=== PATIENT | female | born 1935 | race Caucasian/White ===

== ENCOUNTER 2018-04-16 16:44 | Emergency (ER) | payer MEDICARE, OTHER, SELFPAY ==
[2018-04-16] VITALS (8 sets, daily range): BP systolic 146–158; BP diastolic 56–90; PULSE 79–108; RESP 16–40; TEMP 37.4; O2SAT 91–98; BMI 43.0
--- NOTE | 2018-04-16 17:05 | DI.RAD.S_ITS ---
PROCEDURE: XR CHEST 1V INDICATIONS: 82 year-old female with shortness of breath. TECHNIQUE: One view of the chest was acquired. COMPARISON: [facility], CHEST 1 VIEW, 08/04/2017, 23:11. [facility], CHEST 1 VIEW, 07/30/2017, 10:45. [facility], CHEST 2 VIEW, 03/09/2011, 9:56. FINDINGS: Surgical changes and devices: None. Lungs and pleura: No pleural effusions or pneumothorax. Lungs are clear. Mediastinum: Mediastinal contours appear normal. Heart size is normal. There is aortic atherosclerosis. Bones and chest wall: No suspicious bony lesions. 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 Overlying soft tissues appear unremarkable. IMPRESSION: No acute cardiopulmonary disease. Dictated by: Luis Antonio Bradford M.D. on 04/16/2018 at 17:24 Approved by: Luis Antonio Bradford M.D. on 04/16/2018 at 17:25
[2018-04-16] MEDS: ALBUTEROL/IPRATROPIUM 3 ML AMPUL INH (17:16)
[2018-04-16 17:28] LABS: Lactate (Lactic Acid) 1.6 mmol/L (0.7-2.1)
[2018-04-16 17:30] LABS: Creatine Kinase 29 U/L (30-135); Magnesium 2.1 mg/dL (1.6-2.3)
--- NOTE | 2018-04-16 17:38 | ED_ITS ---
HPI - SOB/Dyspnea <Kirsty Lucas DO - Last Filed: 04/24/18 04:51> General Chief Complaint: Shortness of Breath/Dyspnea Stated Complaint: SOB Time Seen by Provider: 04/16/18 17:22 Source: patient and family Mode of arrival: wheelchair Limitations: no limitations History of Present Illness Patient is an 82-year-old female who presents with increasing shortness of breath. She has been referred to what her PCP to wood model [employer] but she has not yet been seen. She has had increase in coughing and increased shortness of breath with exertion. She denies any chest pain or fever. She denies lower extremity edema. Today her breathing is worse. MD Complaint: shortness of breath Related Data Home Medications Medication Instructions Recorded Confirmed aspirin 81 mg PO QDAY #0 07/30/17 04/16/18 rivaroxaban [Xarelto] 20 mg PO QPM #0 08/04/17 04/16/18 albuterol sulfate [ProAir HFA] 2 puff INHALATION Q4H PRN 04/16/18 04/16/18 atenolol 50 mg PO DAILY 04/16/18 04/16/18 clobetasol 1 applic TOPICAL DAILY 04/16/18 04/16/18 loratadine 1 tab PO DAILY PRN 04/16/18 04/16/18 losartan 25 mg PO DAILY 04/16/18 04/16/18 mupirocin 1 applic TOPICAL DIRECTED 04/16/18 04/16/18 simvastatin 1 tab PO DAILY 04/16/18 04/16/18 Previous Rx's Medication Instructions Recorded dexamethasone [Decadron] 16 mg PO ONCE PM #4 tab 04/16/18 Allergies Allergy/AdvReac Type Severity Reaction Status Date / Time No Known Drug Allergies Allergy Verified 04/16/18 16:59 Review of Systems <DO Wiliam Garcia Last Filed: 04/24/18 04:51> Review of Systems All systems reviewed & are unremarkable except as noted in HPI and below Constitutional Denies chills, Denies fever(s), Denies lethargy and Denies weakness Cardiovascular Denies chest pain, Denies irregular heart rhythm and Reports dyspnea on exertion Respiratory Reports as per HPI, Reports system reviewed and no additional complaints, except as docu, Denies change in phlegm color, Reports cough, Denies pain with cough and Reports dyspnea on exertion Gastrointestinal Gastrointestinal: Denies abdominal pain, Denies change in bowel habits, Denies diarrhea, Denies nausea and Denies vomiting Musculoskeletal Denies back pain, Denies muscle weakness, Denies numbness and Denies tingling Integumentary/Breasts Denies pruritus, Denies erythema, Denies rash and Denies wounds Neurologic Denies numbness, Denies tingling and Denies weakness Exam <Kirsty Lucas DO - Last Filed: 04/24/18 04:51> Initial Vital Signs Initial Vital Signs: Vital Signs Temperature 99.3 F 04/16/18 16:44 Pulse Rate 92 H 04/16/18 16:44 Respiratory Rate 24 04/16/18 16:44 Blood Pressure 148/56 H 04/16/18 16:44 Pulse Oximetry 98 04/16/18 16:44 Const General: acute distress (Mild respiratory distress) Nutritional Appearance: obese Neck Neck: normal visual inspection and No JVD Chest Chest: normal inspection of the chest Resp Effort & Inspection: not able to speak in complete sentences, audible wheezes and pursed lip breathing Cardio Rhythm: regular rhythm Heart Sounds: S1 normal and S2 normal GI Inspection: non-distended Palpation: soft, no hepatosplenomegaly, No guarding, No pulsatile mass and No tender Auscultation: normal bowel sounds Skin General: no rashes or lesions noted, No jaundice and No petechiae Neuro General: alert, oriented x3, gait normal and no focal motor deficits Speech: speech normal Extrem General: full ROM, no clubbing, cyanosis or edema, no pedal edema and no calf tenderness <Charlie Munoz DO - Last Filed: 04/16/18 19:43> Initial Vital Signs Initial Vital Signs: Vital Signs Temperature 99.3 F 04/16/18 16:44 Pulse Rate 92 H 04/16/18 16:44 Respiratory Rate 24 04/16/18 16:44 Blood Pressure 148/56 H 04/16/18 16:44 Pulse Oximetry 98 04/16/18 16:44 Course <Kirsty Lucas DO - Last Filed: 04/24/18 04:51> Orders Ordered: Discontinued Medications Albuterol/Ipratropium (Duoneb) 3 ml INH NOW ONE Stop: 04/16/18 17:04 Last Admin: 04/16/18 17:16 Dose: 3 ml Dexamethasone (Decadron) 10 mg PO NOW ONE Stop: 04/16/18 19:31 Last Admin: 04/16/18 19:50 Dose: 10 mg Furosemide (Lasix) 40 mg IV NOW ONE Stop: 04/16/18 17:29 Last Admin: 04/16/18 17:41 Dose: 40 mg Vital Signs - 8 hr 04/16/18 16:44 04/16/18 17:28 04/16/18 17:30 Temperature 99.3 F Pulse Rate 92 H 104 H 104 H Respiratory Rate 24 40 H 16 Blood Pressure 148/56 H Blood Pressure [Left Arm] 146/80 H Pulse Oximetry 98 93 95 04/16/18 19:01 04/16/18 19:07 Temperature Pulse Rate 102 H 108 H Respiratory Rate 22 28 H Blood Pressure Blood Pressure [Left Arm] Pulse Oximetry 96 91 <Charlie Munoz DO - Last Filed: 04/16/18 19:43> Orders Ordered: Discontinued Medications Albuterol/Ipratropium (Duoneb) 3 ml INH NOW ONE Stop: 04/16/18 17:04 Last Admin: 04/16/18 17:16 Dose: 3 ml Dexamethasone (Decadron) 10 mg PO NOW ONE Stop: 04/16/18 19:31 Last Admin: 04/16/18 19:50 Dose: 10 mg Furosemide (Lasix) 40 mg IV NOW ONE Stop: 04/16/18 17:29 Last Admin: 04/16/18 17:41 Dose: 40 mg Vital Signs - 8 hr 04/16/18 16:44 04/16/18 17:28 04/16/18 17:30 Temperature 99.3 F Pulse Rate 92 H 104 H 104 H Respiratory Rate 24 40 H 16 Blood Pressure 148/56 H Blood Pressure [Left Arm] 146/80 H Pulse Oximetry 98 93 95 04/16/18 19:01 04/16/18 19:07 Temperature Pulse Rate 102 H 108 H Respiratory Rate 22 28 H Blood Pressure Blood Pressure [Left Arm] Pulse Oximetry 96 91 MDM - SOB/Dyspnea <Kirsty Lucas DO - Last Filed: 04/24/18 04:51> Lab Data Result diagrams: 04/16/18 17:00 04/16/18 17:35 Lab Results 04/16/18 04/16/18 04/16/18 Range/Units 17:00 17:00 17:00 WBC 10.6 (4.5-11.0) X10^3/uL RBC 4.47 (4.0-5.2) X10^6/uL Hgb 12.6 (12.0-16.0) g/dL Hct 38.2 (36-46) % MCV 85.4 (80-100) fL MCH 28.3 (26-34) PG MCHC 33.1 (30-36) % RDW 15.9 H (11.6-14.8) % Plt Count 322 (150-400) X10^3/uL Neut % (Auto) 58.5 (50-75) % Lymph % (Auto) 25.1 (25-40) % Dickinson % (Auto) 9.8 (3-14) % Eos % (Auto) 6.1 H (2-4) % Baso % (Auto) 0.5 (0-2) % Neut # (Auto) 6200 H (5338-5381) /uL Sodium (137-145) mmol/L Potassium (3.4-5.1) mmol/L Chloride (98-107) mmol/L Carbon Dioxide (22-32) mmol/L BUN (7-17) mg/dL Creatinine (0.52-1.04) mg/dL Estimated GFR (>60) mL/min BUN/Creatinine Ratio (6-22) Glucose (80-110) mg/dL Lactate (0.7-2.1) mmol/L Calcium (8.4-10.2) mg/dL Magnesium 2.1 (1.6-2.3) mg/dL Total Bilirubin (0.2-1.3) mg/dL AST (14-36) IU/L ALT (9-52) IU/L Alkaline Phosphatase (38-126) U/L Total Creatine Kinase 29 L (30-135) U/L Troponin I < 0.012 (0.01-0.034) ng/mL B-Natriuretic Peptide 254.0 H (<29.3) Total Protein (6.3-8.2) g/dL Albumin (3.5-5.0) g/dL Globulin (1.7-4.1) g/dL Albumin/Globulin Ratio (1.0-2.8) Procalcitonin < 0.05 (<0.5) ng/mL A. baumannii (PCR) (Not Detect) Cherry albicans (PCR) (Not Detect) C. glabrata (PCR) (Not Detect) C. krusei (PCR) (Not Detect) C. parapsilosis (PCR) (Not Detect) C. tropicalis (PCR) (Not Detect) Enterobacteriac sp PCR (Not Detect) E. cloacae complex PCR (Not Detect) Enterococcus sp PCR (Not Detect) E. coli (PCR) (Not Detect) H. influenzae (PCR) (Not Detect) Klebsiella oxytoca PCR (Not Detect) Klebsiella pneumoniae (Not Detect) List. monocytogenes PCR (Not Detect) N. meningitidis (PCR) (Not Detect) Proteus species (PCR) (Not Detect) Serratia marcescens PCR (Not Detect) Staphylococcus sp PCR (Not Detect) Staph aureus (PCR) (Not Detect) mecA-Methicil Res Gene (Not Detect) Streptococcus sp PCR (Not Detect) Group A Strep (PCR) (Not Detect) Strep agalactiae (PCR) (Not Detect) Strep pneumoniae (PCR) (Not Detect) P. aeruginosa (PCR) (Not Detect) Elva/B-Vanco Res Genes (Not Detect) KPC-Carbap Res Gene PCR (Not Detect) 04/16/18 04/16/18 04/17/18 Range/Units 17:00 17:35 Unknown WBC (4.5-11.0) X10^3/uL RBC (4.0-5.2) X10^6/uL Hgb (12.0-16.0) g/dL Hct (36-46) % MCV (80-100) fL MCH (26-34) PG MCHC (30-36) % RDW (11.6-14.8) % Plt Count (150-400) X10^3/uL Neut % (Auto) (50-75) % Lymph % (Auto) (25-40) % Dickinson % (Auto) (3-14) % Eos % (Auto) (2-4) % Baso % (Auto) (0-2) % Neut # (Auto) (4276-4210) /uL Sodium 138 (137-145) mmol/L Potassium 4.7 (3.4-5.1) mmol/L Chloride 97 L (98-107) mmol/L Carbon Dioxide 30 (22-32) mmol/L BUN 15 (7-17) mg/dL Creatinine 0.80 (0.52-1.04) mg/dL Estimated GFR > 60.0 (>60) mL/min BUN/Creatinine Ratio 18.8 (6-22) Glucose 116 H (80-110) mg/dL Lactate 1.6 (0.7-2.1) mmol/L Calcium 9.8 (8.4-10.2) mg/dL Magnesium (1.6-2.3) mg/dL Total Bilirubin 0.5 (0.2-1.3) mg/dL AST 35 (14-36) IU/L ALT 26 (9-52) IU/L Alkaline Phosphatase 130 H (38-126) U/L Total Creatine Kinase (30-135) U/L Troponin I (0.01-0.034) ng/mL B-Natriuretic Peptide (<29.3) Total Protein 8.0 (6.3-8.2) g/dL Albumin 4.2 (3.5-5.0) g/dL Globulin 3.8 (1.7-4.1) g/dL Albumin/Globulin Ratio 1.1 (1.0-2.8) Procalcitonin (<0.5) ng/mL A. baumannii (PCR) Not detected (Not Detect) Cherry albicans (PCR) Not detected (Not Detect) C. glabrata (PCR) Not detected (Not Detect) C. krusei (PCR) Not detected (Not Detect) C. parapsilosis (PCR) Not detected (Not Detect) C. tropicalis (PCR) Not detected (Not Detect) Enterobacteriac sp PCR Not detected (Not Detect) E. cloacae complex PCR Not detected (Not Detect) Enterococcus sp PCR Not detected (Not Detect) E. coli (PCR) Not detected (Not Detect) H. influenzae (PCR) Not detected (Not Detect) Klebsiella oxytoca PCR Not detected (Not Detect) Klebsiella pneumoniae Not detected (Not Detect) List. monocytogenes PCR Not detected (Not Detect) N. meningitidis (PCR) Not detected (Not Detect) Proteus species (PCR) Not detected (Not Detect) Serratia marcescens PCR Not detected (Not Detect) Staphylococcus sp PCR Detected H (Not Detect) Staph aureus (PCR) Not detected (Not Detect) mecA-Methicil Res Gene Detected H (Not Detect) Streptococcus sp PCR Not detected (Not Detect) Group A Strep (PCR) Not detected (Not Detect) Strep agalactiae (PCR) Not detected (Not Detect) Strep pneumoniae (PCR) Not detected (Not Detect) P. aeruginosa (PCR) Not detected (Not Detect) Elva/B-Vanco Res Genes Not detected (Not Detect) KPC-Carbap Res Gene PCR Not detected (Not Detect) ECG Data Attestation: I personally reviewed and interpreted this ECG as follows: Prior ECG tracings: available for review Interpretation: Sinus rhythm rate 95, better than previous EKG no acute ST changes <Charlie Munoz DO - Last Filed: 04/16/18 19:43> Lab Data Lab Results 04/16/18 04/16/18 04/16/18 Range/Units 17:00 17:00 17:00 WBC 10.6 (4.5-11.0) X10^3/uL RBC 4.47 (4.0-5.2) X10^6/uL Hgb 12.6 (12.0-16.0) g/dL Hct 38.2 (36-46) % MCV 85.4 (80-100) fL MCH 28.3 (26-34) PG MCHC 33.1 (30-36) % RDW 15.9 H (11.6-14.8) % Plt Count 322 (150-400) X10^3/uL Neut % (Auto) 58.5 (50-75) % Lymph % (Auto) 25.1 (25-40) % Dickinson % (Auto) 9.8 (3-14) % Eos % (Auto) 6.1 H (2-4) % Baso % (Auto) 0.5 (0-2) % Neut # (Auto) 6200 H (4210-9166) /uL Sodium (137-145) mmol/L Potassium (3.4-5.1) mmol/L Chloride (98-107) mmol/L Carbon Dioxide (22-32) mmol/L BUN (7-17) mg/dL Creatinine (0.52-1.04) mg/dL Estimated GFR (>60) mL/min BUN/Creatinine Ratio (6-22) Glucose (80-110) mg/dL Lactate (0.7-2.1) mmol/L Calcium (8.4-10.2) mg/dL Magnesium 2.1 (1.6-2.3) mg/dL Total Bilirubin (0.2-1.3) mg/dL AST (14-36) IU/L ALT (9-52) IU/L Alkaline Phosphatase (38-126) U/L Total Creatine Kinase 29 L (30-135) U/L Troponin I < 0.012 (0.01-0.034) ng/mL B-Natriuretic Peptide 254.0 H (<29.3) Total Protein (6.3-8.2) g/dL Albumin (3.5-5.0) g/dL Globulin (1.7-4.1) g/dL Albumin/Globulin Ratio (1.0-2.8) Procalcitonin < 0.05 (<0.5) ng/mL A. baumannii (PCR) (Not Detect) Cherry albicans (PCR) (Not Detect) C. glabrata (PCR) (Not Detect) C. krusei (PCR) (Not Detect) C. parapsilosis (PCR) (Not Detect) C. tropicalis (PCR) (Not Detect) Enterobacteriac sp PCR (Not Detect) E. cloacae complex PCR (Not Detect) Enterococcus sp PCR (Not Detect) E. coli (PCR) (Not Detect) H. influenzae (PCR) (Not Detect) Klebsiella oxytoca PCR (Not Detect) Klebsiella pneumoniae (Not Detect) List. monocytogenes PCR (Not Detect) N. meningitidis (PCR) (Not Detect) Proteus species (PCR) (Not Detect) Serratia marcescens PCR (Not Detect) Staphylococcus sp PCR (Not Detect) Staph aureus (PCR) (Not Detect) mecA-Methicil Res Gene (Not Detect) Streptococcus sp PCR (Not Detect) Group A Strep (PCR) (Not Detect) Strep agalactiae (PCR) (Not Detect) Strep pneumoniae (PCR) (Not Detect) P. aeruginosa (PCR) (Not Detect) Elva/B-Vanco Res Genes (Not Detect) KPC-Carbap Res Gene PCR (Not Detect) 04/16/18 04/16/18 04/17/18 Range/Units 17:00 17:35 Unknown WBC (4.5-11.0) X10^3/uL RBC (4.0-5.2) X10^6/uL Hgb (12.0-16.0) g/dL Hct (36-46) % MCV (80-100) fL MCH (26-34) PG MCHC (30-36) % RDW (11.6-14.8) % Plt Count (150-400) X10^3/uL Neut % (Auto) (50-75) % Lymph % (Auto) (25-40) % Dickinson % (Auto) (3-14) % Eos % (Auto) (2-4) % Baso % (Auto) (0-2) % Neut # (Auto) (8983-3267) /uL Sodium 138 (137-145) mmol/L Potassium 4.7 (3.4-5.1) mmol/L Chloride 97 L (98-107) mmol/L Carbon Dioxide 30 (22-32) mmol/L BUN 15 (7-17) mg/dL Creatinine 0.80 (0.52-1.04) mg/dL Estimated GFR > 60.0 (>60) mL/min BUN/Creatinine Ratio 18.8 (6-22) Glucose 116 H (80-110) mg/dL Lactate 1.6 (0.7-2.1) mmol/L Calcium 9.8 (8.4-10.2) mg/dL Magnesium (1.6-2.3) mg/dL Total Bilirubin 0.5 (0.2-1.3) mg/dL AST 35 (14-36) IU/L ALT 26 (9-52) IU/L Alkaline Phosphatase 130 H (38-126) U/L Total Creatine Kinase (30-135) U/L Troponin I (0.01-0.034) ng/mL B-Natriuretic Peptide (<29.3) Total Protein 8.0 (6.3-8.2) g/dL Albumin 4.2 (3.5-5.0) g/dL Globulin 3.8 (1.7-4.1) g/dL Albumin/Globulin Ratio 1.1 (1.0-2.8) Procalcitonin (<0.5) ng/mL A. baumannii (PCR) Not detected (Not Detect) Cherry albicans (PCR) Not detected (Not Detect) C. glabrata (PCR) Not detected (Not Detect) C. krusei (PCR) Not detected (Not Detect) C. parapsilosis (PCR) Not detected (Not Detect) C. tropicalis (PCR) Not detected (Not Detect) Enterobacteriac sp PCR Not detected (Not Detect) E. cloacae complex PCR Not detected (Not Detect) Enterococcus sp PCR Not detected (Not Detect) E. coli (PCR) Not detected (Not Detect) H. influenzae (PCR) Not detected (Not Detect) Klebsiella oxytoca PCR Not detected (Not Detect) Klebsiella pneumoniae Not detected (Not Detect) List. monocytogenes PCR Not detected (Not Detect) N. meningitidis (PCR) Not detected (Not Detect) Proteus species (PCR) Not detected (Not Detect) Serratia marcescens PCR Not detected (Not Detect) Staphylococcus sp PCR Detected H (Not Detect) Staph aureus (PCR) Not detected (Not Detect) mecA-Methicil Res Gene Detected H (Not Detect) Streptococcus sp PCR Not detected (Not Detect) Group A Strep (PCR) Not detected (Not Detect) Strep agalactiae (PCR) Not detected (Not Detect) Strep pneumoniae (PCR) Not detected (Not Detect) P. aeruginosa (PCR) Not detected (Not Detect) Elva/B-Vanco Res Genes Not detected (Not Detect) KPC-Carbap Res Gene PCR Not detected (Not Detect) Imaging Data CT scan - chest: Radiologist's impression: PROCEDURE: CT ANGIO CHEST PE PROTOCOL INDICATIONS: 82 year-old female with hypoxia and shortness of breath. TECHNIQUE: After the administration of intravenous contrast, 2 mm thick sections acquired from the pulmonary apices to the posterior costophrenic angles. 3-dimensional maximum intensity projection (MIP) coronal and sagittal reformats were then acquired through the thorax. For radiation dose reduction, the following was used: automated exposure control, adjustment of mA and/or kV according to patient size. COMPARISON: [facility], CT, CHEST ABDOMEN PELVIS WITH CONTRAST, 03/16/2011 , 10:36. FINDINGS: Image quality: Excellent. Pulmonary arteries: Pulmonary arteries are normal in size, and demonstrate no intraluminal filling defects to suggest central pulmonary embolism. Lungs and pleura: No acute airspace opacities. On axial image 18, 10 x 7 mm right upper lobe nodule appears new since 2010. No pleural effusions or pneumothorax. Central and peripheral airways are patent. Mediastinum: Heart size is normal, without pericardial effusion. On axial image 57, 2.6 x 2.3 cm right hilar soft tissue density appears new since 2010. No mediastinal adenopathy by size criteria. Thoracic aorta is normal in caliber and enhancement. Esophagus is normal in caliber, without hiatal hernia. Bones and chest wall: No suspicious bony lesions. 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 Ribs and thoracic spine appear intact throughout. Thyroid gland is normal in size. No axillary or supraclavicular adenopathy. Abdomen: Visualized upper abdominal solid organs appear normal in the early arterial phase of enhancement. 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 Incompletely visualized anterior right renal cortical simple cyst measures at least 5.1 cm. 2.9 cm lateral left renal cortical simple cyst is also present. IMPRESSION: 1. No evidence for central pulmonary embolism. 2. 2.6 x 2.3 cm right hilar lesion appears new since 2010, and may represent pathologically enlarged lymph node versus medial right lung neoplasm contiguous with the mediastinum. An additional newly apparent 10 x 7 mm indeterminate right upper lobe nodule is also present. Consider further evaluation of these findings with PET/CT scan. 3. 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 4. Several bilateral renal cortical simple cysts again noted. Dictated by: Luis Antonio Bradford M.D. on 04/16/2018 at 18:43 Approved by: Luis Antonio Bradford M.D. on 04/16/2018 at 18:55 Chest x-ray: Radiologist's impression: no acute findings ECG Data Attestation: I personally reviewed and interpreted this ECG as follows: Prior ECG tracings: not available for review Interpretation: Sinus rhythm Rate 95 First degree AV block Normal axis Nonspecific ST T wave changes MDM Narrative Medical decision making narrative: 1800: Dr Munoz received turned over from day provider. Reviewed patient's history and physical exam. Read patient's labs. Perform my own history and physical. Chest x-ray is unremarkable. CT scan shows no sign of blood clot. Does show uday hilar findings of right upper lobe findings. I did discuss this with the patient. She was given a report to take to her primary doctor for follow-up. She does have an albuterol inhaler at home. She ambulated around the emergency department and desatted to the low 90s when she was at her most symptomatic however recovered quickly off oxygen back on the [place]. We did discuss her symptoms. She does have a consult by her primary doctor to follow up with pulmonology. We discussed the use of antihistamines such as Claritin which she will start. She was given a dose of Decadron here in the emergency department and will take another dose in 36 hr. She has an albuterol inhaler at home with an AeroChamber. She will take this medication every 4 hr for the next 24-48 hours. She was given return precautions. No indication for antibiotics found on today's exam. Patient clinically not in heart failure. Was satting in the high 90s on room air while lying in bed. Was asymptomatic while lying in bed. Was not having any chest pain. EKG does not show ST elevations. I discussed all this with the patient and her at bedside. They will call her primary doctor tomorrow for follow-up with the CTA findings they will call the wood model builder tomorrow to schedule a appointment. They expressed understanding and agreement with plan Discharge Plan Departure Patient Disposition: Home, Self-Care Clinical Impression: Shortness of breath, Pulmonary nodule Discharge Date/Time: 04/16/18 20:03 Interventions: ED Discharge Assessment Last Done: 04/16/18 20:02 Instructions: DI for Shortness of Breath, DI for Pulmonary Nodule, How to Manage Shortness of Breath Activity Restrictions/Additional Instructions: Recommend that you contact your primary care provider to discuss the pulmonary nodule that was seen the CT of your chest today. Call the lung doctor tomorrow morning to schedule a follow up. take all of your medications like we discussed and as directed. return to the ER for any new or worsening symptoms Prescriptions: New dexamethasone [Decadron] 4 mg tablet 16 mg PO ONCE PM Qty: 4 RF: 0 No Action aspirin 81 MG tablet,delayed release (DR/EC) 81 mg PO QDAY Qty: 0 RF: 0 rivaroxaban [Xarelto] 20 MG tablet 20 mg PO QPM Qty: 0 RF: 0 simvastatin 20 mg tablet 1 tab PO DAILY RF: 0 losartan 25 mg tablet 25 mg PO DAILY RF: 0 mupirocin 2 % ointment 1 applic Topical DIRECTED RF: 0 albuterol sulfate [ProAir HFA] 90 mcg/actuation HFA aerosol inhaler 2 puff Inhalation Q4H PRN (Reason: Wheezing) RF: 0 clobetasol 0.05 % solution 1 applic Topical DAILY RF: 0 atenolol 50 mg tablet 50 mg PO DAILY RF: 0 loratadine 10 mg tablet 1 tab PO DAILY PRN (Reason: Allergy Symptoms) RF: 0 ED Cosign/Signout <Kirsty Lucas DO - Last Filed: 04/24/18 04:51> Sign Out Provider Sign Out Attestation: Signed out to Dr. Munoz. CT for PE pending has not yet been done, check labs may require admission.
[2018-04-16] MEDS: FUROSEMIDE 40 MG/4 ML VIAL IV (17:41)
--- NOTE | 2018-04-16 17:41 | DI.CT.S_ITS ---
PROCEDURE: CT ANGIO CHEST PE PROTOCOL INDICATIONS: 82 year-old female with hypoxia and shortness of breath. TECHNIQUE: After the administration of intravenous contrast, 2 mm thick sections acquired from the pulmonary apices to the posterior costophrenic angles. 3-dimensional maximum intensity projection (MIP) coronal and sagittal reformats were then acquired through the thorax. For radiation dose reduction, the following was used: automated exposure control, adjustment of mA and/or kV according to patient size. COMPARISON: [facility], CT, CHEST ABDOMEN PELVIS WITH CONTRAST, 03/16/2011, 10:36. FINDINGS: Image quality: Excellent. Pulmonary arteries: Pulmonary arteries are normal in size, and demonstrate no intraluminal filling defects to suggest central pulmonary embolism. Lungs and pleura: No acute airspace opacities. On axial image 18, 10 x 7 mm right upper lobe nodule appears new since 2010. No pleural effusions or pneumothorax. Central and peripheral airways are patent. Mediastinum: Heart size is normal, without pericardial effusion. On axial image 57, 2.6 x 2.3 cm right hilar soft tissue density appears new since 2010. No mediastinal adenopathy by size criteria. Thoracic aorta is normal in caliber and enhancement. Esophagus is normal in caliber, without hiatal hernia. Bones and chest wall: No suspicious bony lesions. 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 Ribs and thoracic spine appear intact throughout. Thyroid gland is normal in size. No axillary or supraclavicular adenopathy. Abdomen: Visualized upper abdominal solid organs appear normal in the early arterial phase of enhancement. There is widespread aortic atherosclerosis, along with 50-60% eccentric luminal stenoses of both the celiac trunk and superior mesenteric artery origins. Incompletely visualized anterior right renal cortical simple cyst measures at least 5.1 cm. 2.9 cm lateral left renal cortical simple cyst is also present. IMPRESSION: 1. No evidence for central pulmonary embolism. 2. 2.6 x 2.3 cm right hilar lesion appears new since 2010, and may represent pathologically enlarged lymph node versus medial right lung neoplasm contiguous with the mediastinum. An additional newly apparent 10 x 7 mm indeterminate right upper lobe nodule is also present. Consider further evaluation of these findings with PET/CT scan. 3. 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 4. Several bilateral renal cortical simple cysts again noted. Dictated by: Luis Antonio Bradford M.D. on 04/16/2018 at 18:43 Approved by: Luis Antonio Bradford M.D. on 04/16/2018 at 18:55
--- NOTE | 2018-04-16 17:42 | PC.NURSE ---
Pt repositioned in bed. Sitting up as high in bed as possible, audible wheeze heard. Pt's received breathing tx and reports feeling minimally better post. Lasix infusing over 10 min. speaking in full sentences. maintaining O2 sat of 99% RA. Encouraged to use call clifford for BR.
[2018-04-16 17:43] LABS: Troponin I < 0.012 ng/mL (0.01-0.034)
[2018-04-16 17:54] LABS: Alanine Aminotransferase 26 IU/L (9-52); Albumin 4.2 g/dL (3.5-5.0); Albumin Globulin Ratio 1.1 (1.0-2.8); Alkaline Phosphatase 130 U/L (38-126); Aspartate Aminotransferase 35 IU/L (14-36); BUN Creatinine Ratio 18.8 (6-22); Bilirubin Total 0.5 mg/dL (0.2-1.3); Blood Urea Nitrogen 15 mg/dL (7-17); Calcium 9.8 mg/dL (8.4-10.2); Carbon Dioxide 30 mmol/L (22-32); Chloride 97 mmol/L (98-107); Estimated Glomerular Filt Rate > 60.0 mL/min (>60); Globulin 3.8 g/dL (1.7-4.1); Glucose 116 mg/dL (80-110); HEMOLYSIS 38 (0-50); Potassium 4.7 mmol/L (3.4-5.1); Sodium 138 mmol/L (137-145)
[2018-04-16 18:02] LABS: Add Manual Diff / Slide Review NO; Basophils Percent Auto 0.5 % (0-2); Eosinophils Percent Auto 6.1 % (2-4); Hematocrit 38.2 % (36-46); Hemoglobin 12.6 g/dL (12.0-16.0); Lymphocytes Percent Auto 25.1 % (25-40); Mean Corpuscular HGB Conc 33.1 % (30-36); Mean Corpuscular Hemoglobin 28.3 PG (26-34); Mean Corpuscular Volume 85.4 fL (80-100); Monocytes Percent Auto 9.8 % (3-14); Neutrophils Absolute Auto 6200 /uL (3000-5900); Neutrophils Percent Auto 58.5 % (50-75); Platelet Count 322 X10^3/uL (150-400); Red Blood Cell Count 4.47 X10^6/uL (4.0-5.2); Red Cell Distribution Width 15.9 % (11.6-14.8); White Blood Cell Count 10.6 X10^3/uL (4.5-11.0)
[2018-04-16 18:29] LABS: Procalcitonin < 0.05 ng/mL (<0.5)
[2018-04-16] MEDS: DEXAMETHASONE 10 MG/ML VIAL PO (19:50)
[2018-04-17 13:05] LABS: Vancomycin-rest genes A/B Not Detected (Not Detect)
[2018-04-17 13:06] LABS: Acinetobacter baumannii Not Detected (Not Detect); Candida albicans Not Detected (Not Detect); Candida glabrata Not Detected (Not Detect); Candida krusei Not Detected (Not Detect); Candida parapsilosis Not Detected (Not Detect); Candida tropicalis Not Detected (Not Detect); E. coli Not Detected (Not Detect); Enterobacter cloacae complex Not Detected (Not Detect); Enterobacteriaceae species Not Detected (Not Detect); Enterococcus species Not Detected (Not Detect); Haemophilus influenzae Not Detected (Not Detect); KPC (carbapenem-resist gene) Not Detected (Not Detect); Listeria monocytogenes Not Detected (Not Detect); Methicillin-resistant gene Detected (Not Detect); Neisseria meningitidis Not Detected (Not Detect); Proteus species Not Detected (Not Detect); Pseudomonas aeruginosa Not Detected (Not Detect); Serratia marcescens Not Detected (Not Detect); Staphylococcus species Detected (Not Detect); Streptococcus agalactiae (Gr B Not Detected (Not Detect); Streptococcus pneumonia Not Detected (Not Detect); Streptococcus pyogenes (Gr A) Not Detected (Not Detect); Streptococcus species Not Detected (Not Detect)
--- NOTE | 2018-04-17 14:40 | PC.NURSE ---
result given to dr burt, no new order at this time.
== END 2018-04-16 20:03 | disposition home or self-care (01) ==
PROVIDERS: Emergency Medicine; Emergency Provider Emergency Medicine; PCP Internal Medicine
DX: R06.02 Shortness of breath (principal); R91.1 Solitary pulmonary nodule
CPT/HCPCS: 36415; 36591; 71045; 71275; 80053; 82550; 82553; 83605; 83735; 83880; 84145; 84484; 85025; 87040; 87077; 87150; 87186; 87205; 93005; 93041; 94640; 96374; 99284; 99285; J1100; J1940; Q9967

== ENCOUNTER 2018-12-28 17:57 | Inpatient (IN) | payer MEDICARE, OTHER, SELFPAY ==
[2018-07-01 15:48] VITALS: BMI 41.5
[2018-12-28] VITALS (7 sets, daily range): BP systolic 133–187; BP diastolic 52–67; PULSE 67–86; RESP 20–29; TEMP 36.3; O2SAT 98–100
--- NOTE | 2018-12-28 18:21 | DI.RAD.S_ITS ---
PROCEDURE: XR CHEST 1V INDICATIONS: SOb TECHNIQUE: One view of the chest was acquired. COMPARISON: [facility], CR, XR CHEST 1V, 04/16/2018, 17:10. FINDINGS: Surgical changes and devices: None. Lungs and pleura: No acute consolidation. Scattered subsegmental atelectasis and/or scarring. No pleural effusions or pneumothorax. Mediastinum: Mediastinal contours appear normal. Heart size is normal. Bones and chest wall: No suspicious bony lesions. Overlying soft tissues appear unremarkable. Bilateral shoulder joint degeneration. IMPRESSION: No acute disease. Dictated by: Saurabh Tavera M.D. on 12/28/2018 at 19:08 Approved by: Saurabh Tavera M.D. on 12/28/2018 at 19:08
--- NOTE | 2018-12-28 18:28 | ED.SOB ---
HPI - SOB/Dyspnea General Chief Complaint: Shortness of Breath/Dyspnea Stated Complaint: states hard time breathing Time Seen by Provider: 12/28/18 18:07 Source: patient and family Mode of arrival: ambulatory Limitations: no limitations History of Present Illness Patient is an 83-year-old female here for evaluation of progressively worsening shortness of breath on exertion over the past several days. She states she has never been diagnosed with congestive heart failure. She states that she has been evaluated for COPD has been told that she does not have COPD however she is still on Advair. She also takes Lasix. She has been taking her medications. She states that over the past couple days it has become more and more difficult for her to get around her house. She states she cannot go more than 3 or 4 steps without becoming very short of breath and having to stop. She also notices swelling in her lower extremities. Does not know if she has been gaining weight over the past couple days. Denies any chest pain. Related Data Home Medications Medication Instructions Recorded Confirmed albuterol sulfate [ProAir HFA] 2 puff INHALATION Q4H PRN 04/16/18 12/28/18 atenolol 50 mg PO DAILY 04/16/18 12/28/18 loratadine 1 tab PO DAILY PRN 04/16/18 12/28/18 losartan 25 mg PO DAILY 04/16/18 12/28/18 mupirocin 1 applic TOPICAL DIRECTED PRN 04/16/18 12/28/18 simvastatin 1 tab PO DAILY 04/16/18 12/28/18 albuterol sulfate 0.63 mg INHALATION Q4H PRN 12/28/18 12/28/18 fluticasone-salmeterol [Advair 1 inh INHALATION BID 12/28/18 12/28/18 Diskus] furosemide 20 mg PO DAILY 12/28/18 12/28/18 potassium chloride 10 meq PO DAILY 12/28/18 12/28/18 Allergies Allergy/AdvReac Type Severity Reaction Status Date / Time No Known Drug Allergies Allergy Verified 04/16/18 16:59 Review of Systems Constitutional Denies fever(s) and Denies headache(s) Eyes Denies blurry vision and Denies diplopia ENT Ears, Nose, Mouth, and Throat: Denies vertigo and Denies headache(s) Cardiovascular Denies chest pain, Denies syncope, Reports pedal edema, Reports edema, Denies radiating jaw, neck or arm pain, Denies palpitations, Reports dyspnea, Reports dyspnea on exertion and Reports orthopnea Respiratory Denies cough, Reports dyspnea, Reports dyspnea on exertion and Denies wheezing Gastrointestinal Gastrointestinal: Denies abdominal pain, Denies nausea and Denies vomiting Genitourinary Denies dysuria Musculoskeletal Denies myalgias and Denies arthralgias Integumentary/Breasts Denies rash Neurologic Denies vertigo, Denies syncope and Denies headache(s) Endocrine Denies palpitations Hematologic/Lymphatic Comments: On Xarelto Allergic/Immunologic Denies urticaria and Denies wheezing [facility] Social History Smoking Status: Never smoker Social History Smoking Status: Never smoker Exam Initial Vital Signs Initial Vital Signs: Vital Signs Temperature 97.4 F L 12/28/18 18:08 Pulse Rate 67 12/28/18 18:08 Respiratory Rate 20 12/28/18 18:08 Blood Pressure 154/67 H 12/28/18 18:08 Pulse Oximetry 99 12/28/18 18:08 Const General: cooperative, well developed, well groomed and in distress [facility] Head: normal to inspection and normocephalic Chest Chest: normal inspection of the chest Resp Effort & Inspection: labored, pursed lip breathing and tachypneic Auscultation: rhonchi Cardio Rate: regular rate Rhythm: abnormal rhythm irregularly irregular Pulses: radial pulses present GI Inspection: non-distended Palpation: soft, No firm and No tender Skin Lesions: no lesions Rashes: no rashes Neuro General: alert, awake and oriented x3 Cognition: normal cognition Speech: speech normal Gait: normal gait Motor: muscle tone normal throughout Extrem General: normal to inspection and capillary refill normal Psych Appearance: grossly normal and well kempt Course Orders Ordered: ED Orders 12/28/18 18:21 XR chest 1V Stat EKG-12 Lead Stat 12/28/18 19:00 B Type Natriuretic Peptide Stat Complete Blood Count AUTO DIFF Stat Comprehensive Metabolic Panel Stat Partial Thromboplastin Time Stat Prothrombin Time INR Stat Troponin I Stat Type and Screen Stat 12/28/18 20:45 CT angio chest PE protocol Stat 12/28/18 22:54 EKG-12 Lead Stat 12/28/18 23:27 Troponin I Stat Sodium Chloride (Normal Saline 0.9%) 1,000 mls @ 125 mls/hr IV CONT ANGELES Last Admin: 12/28/18 22:43 Dose: 125 mls/hr Discontinued Medications Albuterol/Ipratropium (Duoneb) 3 ml INH NOW ONE Stop: 12/28/18 22:55 Last Admin: 12/28/18 23:02 Dose: 3 ml Albuterol/Ipratropium (Duoneb) 3 ml INH NOW ONE Stop: 12/28/18 23:02 Last Admin: 12/28/18 23:04 Dose: 3 ml Furosemide (Lasix) 40 mg IV NOW ONE Stop: 12/28/18 20:44 Last Admin: 12/28/18 22:21 Dose: Not Given Furosemide (Lasix) 40 mg IV NOW ONE Stop: 12/28/18 22:19 Last Admin: 12/28/18 22:20 Dose: 40 mg Methylprednisolone (Solu-Medrol 125 Mg Vial) 125 mg IV NOW ONE Stop: 12/28/18 23:01 Last Admin: 12/28/18 23:03 Dose: 125 mg Nitroglycerin (Nitro-Bid) 1 inch TOP NOW ONE Stop: 12/28/18 22:55 Last Admin: 12/28/18 23:02 Dose: 1 inch Vital Signs - 8 hr 12/28/18 18:08 12/28/18 18:46 12/28/18 22:44 Temperature 97.4 F L Pulse Rate 67 84 83 Respiratory Rate 20 22 29 H Blood Pressure 154/67 H Blood Pressure [Right upper arm] 147/63 H 173/52 H Pulse Oximetry 99 98 100 12/28/18 23:00 12/28/18 23:02 12/28/18 23:04 Temperature Pulse Rate 82 84 86 Respiratory Rate 26 H 22 Blood Pressure 187/67 H Blood Pressure [Right upper arm] 157/52 H Pulse Oximetry 100 99 12/29/18 00:01 Temperature Pulse Rate 77 Respiratory Rate 22 Blood Pressure Blood Pressure [Right upper arm] 160/53 H Pulse Oximetry 100 MDM - SOB/Dyspnea Lab Data Attestation: I reviewed the patient's lab results. Result diagrams: 12/28/18 19:00 12/28/18 19:00 Lab Results 12/28/18 12/28/18 12/28/18 Range/Units 19:00 19:00 19:00 WBC 8.7 (4.5-11.0) X10^3/uL RBC 4.17 (4.0-5.2) X10^6/uL Hgb 9.2 L (12.0-16.0) g/dL Hct 29.8 L (36-46) % MCV 71.6 L (80-100) fL MCH 22.0 L (26-34) PG MCHC 30.7 (30-36) % RDW 18.7 H (11.6-14.8) % Plt Count 332 (150-400) X10^3/uL Neut % (Auto) 69.2 (50-75) % Lymph % (Auto) 17.6 L (25-40) % [place] % (Auto) 9.3 (3-14) % Eos % (Auto) 3.5 (2-4) % Baso % (Auto) 0.4 (0-2) % Neut # (Auto) 6000 (9322-1767) /uL Lymph # (Auto) 1500 (3441-1426) /uL [place] # (Auto) 800 (0-900) /uL Eos # (Auto) 300 (0-450) /uL Baso # (Auto) 0 (0-100) /uL PT 12.5 (10.1-12.7) SECONDS INR 1.1 (0.9-1.3) APTT 30 (26.4-36.2) SECONDS Sodium 139 (137-145) mmol/L Potassium 4.7 (3.4-5.1) mmol/L Chloride 100 (98-107) mmol/L Carbon Dioxide 30 (22-32) mmol/L BUN 19 H (7-17) mg/dL Creatinine 0.90 (0.52-1.04) mg/dL Estimated GFR 59.9 L (>60) mL/min BUN/Creatinine Ratio 21.1 (6-22) Glucose 111 H (80-110) mg/dL Calcium 9.4 (8.4-10.2) mg/dL Total Bilirubin 0.4 (0.2-1.3) mg/dL AST 32 (14-36) IU/L ALT 24 (9-52) IU/L Alkaline Phosphatase 137 H (38-126) U/L Troponin I (0.01-0.034) ng/mL B-Natriuretic Peptide 447 H (<100) Total Protein 8.2 (6.3-8.2) g/dL Albumin 4.1 (3.5-5.0) g/dL Globulin 4.1 (1.7-4.1) g/dL Albumin/Globulin Ratio 1.0 (1.0-2.8) Blood Type 12/28/18 12/28/18 12/28/18 Range/Units 19:00 19:00 23:27 WBC (4.5-11.0) X10^3/uL RBC (4.0-5.2) X10^6/uL Hgb (12.0-16.0) g/dL Hct (36-46) % MCV (80-100) fL MCH (26-34) PG MCHC (30-36) % RDW (11.6-14.8) % Plt Count (150-400) X10^3/uL Neut % (Auto) (50-75) % Lymph % (Auto) (25-40) % [place] % (Auto) (3-14) % Eos % (Auto) (2-4) % Baso % (Auto) (0-2) % Neut # (Auto) (3271-5799) /uL Lymph # (Auto) (2559-3820) /uL [place] # (Auto) (0-900) /uL Eos # (Auto) (0-450) /uL Baso # (Auto) (0-100) /uL PT (10.1-12.7) SECONDS INR (0.9-1.3) APTT (26.4-36.2) SECONDS Sodium (137-145) mmol/L Potassium (3.4-5.1) mmol/L Chloride (98-107) mmol/L Carbon Dioxide (22-32) mmol/L BUN (7-17) mg/dL Creatinine (0.52-1.04) mg/dL Estimated GFR (>60) mL/min BUN/Creatinine Ratio (6-22) Glucose (80-110) mg/dL Calcium (8.4-10.2) mg/dL Total Bilirubin (0.2-1.3) mg/dL AST (14-36) IU/L ALT (9-52) IU/L Alkaline Phosphatase (38-126) U/L Troponin I < 0.012 < 0.012 (0.01-0.034) ng/mL B-Natriuretic Peptide (<100) Total Protein (6.3-8.2) g/dL Albumin (3.5-5.0) g/dL Globulin (1.7-4.1) g/dL Albumin/Globulin Ratio (1.0-2.8) Blood Type O Negative Imaging Data Chest x-ray: Radiologist's impression: [address] [address] XRay Report Signed Patient: Lizy Cottrell#: [id number] : 6Acct:[id number] Age/Sex: 83 / FDate of Service: 12/28/18 Loc: ED Accession Number: [id number] Procedure: XR chest 1V Ordering Provider: Charlie Munoz D.O. PROCEDURE: XR CHEST 1V INDICATIONS: SOb TECHNIQUE: One view of the chest was acquired. COMPARISON: [facility], , XR CHEST 1V, 04/16/2018, 17:10. FINDINGS: Surgical changes and devices: None. Lungs and pleura: No acute consolidation. Scattered subsegmental atelectasis and/or scarring. No pleural effusions or pneumothorax. Mediastinum: Mediastinal contours appear normal. Heart size is normal. Bones and chest wall: No suspicious bony lesions. Overlying soft tissues appear unremarkable. Bilateral shoulder joint degeneration. IMPRESSION: No acute disease. Dictated by: Saurabh Tavera M.D. on 12/28/2018 at 19:08 Approved by: Saurabh Tavera M.D. on 12/28/2018 at 19:08 CT scan - chest: Radiologist's impression: Small bilateral pleural effusions. No evidence for pulmonary embolus ECG Data Attestation: I personally reviewed and interpreted this ECG as follows: Prior ECG tracings: not available for review Interpretation: EKG time 1835 hr Atrial fibrillation Ventricular rate of 73 Normal axis Normal QRS Nonspecific ST T wave changes EKG time 2304 hr Atrial fibrillation Ventricular rate is 78 Normal axis Normal QRS Nonspecific ST T wave changes Relatively unchanged from 1st EKG [facility] Narrative Medical decision making narrative: Upon arrival was concerned that the patient was going to be anemic for her H&H came back at a level that does not require transfusions or explains the symptoms she was having. She states she has never been diagnosed with CHF however still on Lasix. She states that COPD has been ruled out however still on albuterol and Advair. Chest x-ray shows no signs of pneumonia. She is in atrial fibrillation on her EKG and this is known. She is rate controlled. She is also on anticoagulation however given the lack of a definitive diagnosis and her air hunger on her ambulation trial here in the emergency department I did perform a CT scan for evaluation of pulmonary embolus which was resulted as no signs of PE. Upon returning from the CT scanner patient was in severe respiratory distress. Decreased lung sounds bilaterally. Was still satting 100%. I did give her 1 in of nitro paste. She had artery CV Lasix for treatment of potential CHF exacerbation. Repeat EKG was unchanged. Repeat troponin was negative. She also received steroids and breathing treatments. After all these interventions she did report improvement of her symptoms. She did still have quite a bit of dyspnea on exertion even with getting to the bedside commode. She was maintaining on 2 L of nasal cannula. Given her respiratory distress with any sort of movement of feel that admission to the hospital was warranted. Discussed the case with Dr. Goldsmith who was on-call for Internal Medicine who will admit the patient for further evaluation and treatment. Discussed the admission with the patient and her who expressed understanding and agreement. Discharge Plan Departure Patient Disposition: Admitted as Observation Clinical Impression: Acute respiratory distress, Pleural effusion associated with pulmonary infection CHF (congestive heart failure) Qualifiers: Heart failure type: unspecified Heart failure chronicity: unspecified Qualified Code(s): I50.9 - Heart failure, unspecified RAD (reactive airway disease) Qualifiers: Asthma severity: unspecified severity Asthma persistence: unspecified Asthma complication type: uncomplicated Qualified Code(s): J45.909 - Unspecified asthma, uncomplicated Admit Date/Time: 12/29/18 00:12 Admit Provider: Liana Goldsmith
--- NOTE | 2018-12-28 18:51 | PC.NURSE ---
Pt w/ significant increase in work of breathing w/ exertion. RR 28, sat 92%. Placed on 2l nasal cannula for shortness of breath.
[2018-12-28 19:19] LABS: Alanine Aminotransferase 24 IU/L (9-52); Albumin 4.1 g/dL (3.5-5.0); Alkaline Phosphatase 137 U/L (38-126); Aspartate Aminotransferase 32 IU/L (14-36); BUN Creatinine Ratio 21.1 (6-22); Bilirubin Total 0.4 mg/dL (0.2-1.3); Blood Urea Nitrogen 19 mg/dL (7-17); Calcium 9.4 mg/dL (8.4-10.2); Carbon Dioxide 30 mmol/L (22-32); Chloride 100 mmol/L (98-107); Estimated Glomerular Filt Rate 59.9 mL/min (>60); Globulin 4.1 g/dL (1.7-4.1); Glucose 111 mg/dL (80-110); HEMOLYSIS < 15 (0-50); Potassium 4.7 mmol/L (3.4-5.1); Sodium 139 mmol/L (137-145); Total Protein 8.2 g/dL (6.3-8.2)
[2018-12-28 19:21] LABS: Add Manual Diff / Slide Review NO; Basophils Absolute Auto 0 /uL (0-100); Basophils Percent Auto 0.4 % (0-2); Eosinophils Absolute Auto 300 /uL (0-450); Eosinophils Percent Auto 3.5 % (2-4); Hematocrit 29.8 % (36-46); Hemoglobin 9.2 g/dL (12.0-16.0); Lymphocytes Absolute Auto 1500 /uL (1100-4500); Lymphocytes Percent Auto 17.6 % (25-40); Mean Corpuscular HGB Conc 30.7 % (30-36); Mean Corpuscular Volume 71.6 fL (80-100); Monocytes Absolute Auto 800 /uL (0-900); Monocytes Percent Auto 9.3 % (3-14); Neutrophils Absolute Auto 6000 /uL (1500-7000); Neutrophils Percent Auto 69.2 % (50-75); Platelet Count 332 X10^3/uL (150-400); Red Blood Cell Count 4.17 X10^6/uL (4.0-5.2); Red Cell Distribution Width 18.7 % (11.6-14.8); White Blood Cell Count 8.7 X10^3/uL (4.5-11.0)
[2018-12-28 19:30] LABS: B Type Natriuretic Peptide 447 (<100)
[2018-12-28 19:32] LABS: INR 1.1 (0.9-1.3); Prothrombin Time 12.5 SECONDS (10.1-12.7); Troponin I < 0.012 ng/mL (0.01-0.034)
[2018-12-28 19:34] LABS: PTT Partial Thromboplastin Tim 30 SECONDS (26.4-36.2)
--- NOTE | 2018-12-28 20:45 | DI.CT.S_ITS ---
PROCEDURE: CT ANGIO CHEST PE PROTOCOL INDICATIONS: Chest pain, shortness of breath, tachycardia TECHNIQUE: After the administration of intravenous contrast, 2 mm thick sections acquired from the pulmonary apices to the posterior costophrenic angles. 3-dimensional maximum intensity projection (MIP) coronal and sagittal reformats were then acquired through the thorax. For radiation dose reduction, the following was used: automated exposure control, adjustment of mA and/or kV according to patient size. COMPARISON: None. FINDINGS: Image quality: Excellent. Pulmonary arteries: Pulmonary arteries are normal in size, and demonstrate no intraluminal filling defects to suggest central pulmonary embolism. Lungs and pleura: Lungs are clear. Trace bilateral pleural fluid collections noted. No pneumothorax. Central and peripheral airways are patent. Mediastinum: Heart size is normal, without pericardial effusion. Atherosclerotic calcifications are noted in the aorta, great vessels and the coronary vasculature.1.5 cm right hilar lymph node is noted. 1.4 cm right paratracheal mediastinal lymph node is noted. 1.5 cm subcarinal mediastinal lymph node is noted. Thoracic aorta is normal in caliber and enhancement. Esophagus is normal in caliber, without hiatal hernia. Bones and chest wall: No suspicious bony lesions. Ribs and thoracic spine appear intact throughout. Thyroid gland is within normal limits. No axillary or supraclavicular adenopathy. Abdomen: Liver has slightly nodular margins suggesting hepatic cirrhosis. Renal cortical atrophy is noted the visualized kidneys. Cyst are noted in the visualized kidneys. IMPRESSION: 1. No pulmonary embolus or aortic dissection. 2. Trace bilateral pleural effusions. 3. Right hilar and mediastinal lymphadenopathy which could be reactive or neoplastic. 4. Atherosclerosis including the coronary vasculature. Dictated by: Gardenia Benitez MD, PhD on 12/29/2018 at 8:06 Approved by: Gardenia Benitez MD, PhD on 12/29/2018 at 8:11
[2018-12-28] MEDS: FUROSEMIDE 20 MG/2 ML VIAL 40 MG IV (22:20)
[2018-12-28] MEDS: SODIUM CHLORIDE 0.9% 1,000 ML 125 ML IV (22:43)
[2018-12-28] MEDS: ALBUTEROL/IPRATROPIUM 3 ML AMPUL INH ×2 (23:02→23:04)
[2018-12-28] MEDS: NITROGLYCERIN OINT 1 INCH/GM OINT...G. TOP (23:02)
[2018-12-28] MEDS: methylPREDNISolone 125 MG/2 ML VIAL IV (23:03)
--- NOTE | 2018-12-28 23:34 | PC.NURSE ---
Pt requesting to urinate, Placed patient on bed hart. Pt immediately reported being unable to breathe. Pt with Pursed lips and using auxiliary muscles. Lung sounds diminished at this time. Provider aware. New orders received. Removed pt from bed hart, Repositioned patient in high fowlers. And neb treatment administered and nitro paste placed on chest. Pt received a second neb treatment. After all treatments patient able to stand to commode.
[2018-12-29] VITALS (13 sets, daily range): BP systolic 137–160; BP diastolic 49–84; PULSE 65–86; RESP 12–32; TEMP 36.3–36.7; O2SAT 93–100; BMI 39.0
--- NOTE | 2018-12-29 | DI.ECHO.S_ITS ---
[place] [facility]---------+ [facility] +---------+ : : [address] : : : : [id number] : : : : Phone: [phone] Echocardiogram Report + + :Name: JENNIFER DORANTES Study Date: 12/29/2018 Height: 62 in : :[facility] Weight: 213 lb: : Gender: Female BSA: 2.0 m2 : :: 1935 Age: 83 yrs BP: 152/ mmHg : :Reason For Study: Congestive Heart Failure : : Performed By: Mary Olivia : :Referring: EDILMA SMITH : + + Interpretation Summary The patient was in atrial fibrillation with heart rates between 65-71 bpm during the exam. Normal left ventricle size with ejection fraction 60-65%. Mild to moderately dilated right ventricle with mildly reduced right ventricular systolic function. Mildly dilated left atrium. Moderate mitral annular calcification. Mild to moderate mitral regurgitation. Mild to moderate tricuspid regurgitation. The right ventricular systolic pressure is estimated to be at least 60 mmHg based on an estimated right atrial pressure of 15 mm Hg. Moderate-severe pulmonary hypertension. Comparison is made with the echocardiogram of 07-31-17, RV dilation with reducred systolic function is new together with significantly increased RV systolic pressure. Pulmonary embolism should be considered. Procedure: A two-dimensional transthoracic echocardiogram with color flow and Doppler was performed. The study quality was technically adequate. Comparison is made with the echocardiogram of 07-31-17. The patient was in atrial fibrillation with heart rates between 65-71 bpm during the exam. Left Ventricle: The left ventricle is normal in size. There is normal left ventricular wall thickness. The ejection fraction is estimated to be 60-65%. There are no focal wall motion abnormalities. Diastolic function could not be accurately assessed due to atrial fibrillation. Right Ventricle: The right ventricle is mild to moderately dilated. Right ventricular systolic function is mildly reduced. Atria: The left atrium is mildly dilated. Right atrial size is normal. The interatrial septum is intact with no evidence for an atrial septal defect. Mitral Valve: The mitral valve leaflets appear borderline thickened, but open well. There is moderate mitral annular calcification. There is mild to moderate mitral regurgitation. Aortic Valve: The aortic valve is trileaflet. The aortic valve opens well. The aortic valve is slightly calcified. There is trace aortic regurgitation. Tricuspid Valve: The tricuspid valve leaflets are thin and pliable. There is mild to moderate tricuspid regurgitation. The right ventricular systolic pressure is estimated to be at least 60 mmHg based on an estimated right atrial pressure of 15 mm Hg. There is moderate-severe pulmonary hypertension. Pulmonic Valve: The pulmonic valve is not well seen, but is grossly normal. There is trace pulmonic regurgitation. Great Vessels: The aortic root is normal size. The dimensions of the ascending aorta are normal. The aortic arch is normal in size. The IVC is dilated (diameter is greater than 2.1 cm) yet it collapses greater than 50% with a sniff. This suggests a right atrial pressure of 8 mm Hg. Pericardium/ Pleura There is no pericardial effusion. There is no pleural effusion. MMode/2D Measurements & Calculations LVIDd: 4.6 cm Ao root diam: 3.3 cm LVIDs: 2.5 cm Aortic Jxn: 2.4 cm FS: 45.2 % asc Aorta Diam: 3.0 cm IVSd: 0.94 cm Ao Arch Diam (Prox Trans): 2.6 cm LVPWd: 0.92 cm LV shaver. diameter/BSA (cm/m^2): 2.3 LV sys. diameter/BSA (cm/m^2): 1.3 LA dimension: 4.7 cm RA long axis: 4.9 cm LA A2 area: 22.4 cm2 RA area: 19.2 cm2 LA A4 area: 25.0 cm2 RA vol: 64.2 ml LA length (vol): 6.2 cm RA : 32.7 ml/m2 LA vol: 76.4 ml IVC diam: 2.1 cm LA vol index: 38.9 ml/m2 RVDd major: 5.3 cm RVD1 (basal): 4.1 cm RVD2 (mid): 3.6 cm Doppler Measurements & Calculations Ao V2 max: 135.6 cm/sec Med Peak E' Ko: 6.2 cm/sec Ao V2 mean: 83.4 cm/sec Lat Peak E' Ko: 5.8 cm/sec Ao max P.4 mmHg MV P1/2t: 61.7 msec Ao mean P.4 mmHg MR ERO: 0.10 cm2 Ao V2 VTI: 29.6 cm TR max ko: 334.5 cm/sec MV V2 mean: 62.4 cm/sec TR max P.8 mmHg MV mean P.5 mmHg PA V2 max: 79.3 cm/sec MV V2 VTI: 34.9 cm PA V2 mean: 49.1 cm/sec PA mean P.2 mmHg PA Accel Time: 0.16 sec MV P1/2t max ko: 164.9 cm/sec MR flow rate: 47.3 cm3/sec MVA(P1/2t): 3.6 cm2 MR PISA radius: 0.44 cm Electronically signed by: Alexander Santizo on Reading Physician:12/29/2018 01:07 PM
[2018-12-29 00:05] LABS: Troponin I < 0.012 ng/mL (0.01-0.034)
--- NOTE | 2018-12-29 00:38 | PC.NURSE ---
NS to continue in acute care
--- NOTE | 2018-12-29 04:51 | PC.NURSE ---
Patient alert and oriented. Denies pain at this time. IV patent. Up to BSC with SBA. Voiding. Has few self inflicted scratch paz to buttocks and abdomen. New admit, no new orders. MD phoned, message left.
--- NOTE | 2018-12-29 05:25 | PC.NURSE ---
Called Dr. Goldsmith regarding any orders for new admit. Patient to start prednisone, a 2gm sodium diet, RT neb treatments, and permission to use own CPAP.
[2018-12-29] MEDS: SODIUM CHLORIDE 0.9% 1,000 ML 125 ML IV (07:25)
[2018-12-29] MEDS: predniSONE 20 MG TABLET 40 MG PO (08:23)
--- NOTE | 2018-12-29 08:59 | P.HP_ITS ---
History of Present Illness Date Patient Seen: 12/29/18 Chief complaint: states hard time breathing Narrative: The patient is an 83-year-old female who presents to the hospital for shortness of breath. The patient was in her usual state of health until 2 days ago. She began to develop progressive shortness of breath. She is typically able to ambulate around her home. However she was unable to ambulate to the bathroom without getting short of breath. She has noted increasing lower extremity edema. She does admit to increasing salt intake. Her weight is between 110 and 115 and has been unchanged. The patient has a history of shortness of breath dating back to 1 year. She was seen by drug counselor who did not confirm a diagnosis of COPD. 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 She has a history of chronic atrial fibrillation. She takes Lasix for lower extremity edema. She does not have a diagnosis of heart failure. However the patient notes increasing swelling and shortness of breath with recent increased salt intake. She reports having a cardiac echo about 1 year ago. Patient had no associated palpitations or chest pain. She denies any orthopnea, paroxysmal nocturnal dyspnea, fever chills. Patient has had a cough which at times has been productive. She has had no fever. That she does report a chronic runny nose which she relates to allergies. She denies any headache or blurred vision she has intra-ocular lens implants and has had some visual disturbance recently. She has no nausea vomiting or diarrhea. She denies any dysuria hematuria or pyuria. She has no joint pains or rashes. Further review of systems is negative. Patient was evaluated in the emergency department. She was given 1 dose of Lasix. She also was treated for reactive airways disease. She reports today feeling much better. Breathing has improved. However she continues to be short of breath and is quickly winded at rest. Patient History Medical History Atrial fibrillation (Acute) Hyperlipidemia (Acute) Hypertension (Acute) Diabetes (Acute) Family History Mother Diabetes mellitus Myocardial infarction Father Diabetes mellitus Social History household members: spouse Smoking Status: Never smoker alcohol intake: current Family & Social History Family History Mother Diabetes mellitus Myocardial infarction Father Diabetes mellitus Social History: household members spouse Prior Living Arrangements House Safety & Behavioral: Feels Safe in Current Yes Environment Been Physically Hurt or No Threatened By a Person Suicidal Ideation Description None Suicide Plan Description No Plan Tobacco & Substance use: Smoking Status Never smoker alcohol intake current alcohol intake frequency holiday/special occasion Substance Use Type does not use Meds Home Medications Medication Instructions Recorded Confirmed Type albuterol sulfate [ProAir HFA] 2 puff INHALATION Q4H PRN 04/16/18 12/28/18 History atenolol 50 mg PO DAILY 04/16/18 12/28/18 History loratadine 1 tab PO DAILY PRN 04/16/18 12/28/18 History losartan 25 mg PO DAILY 04/16/18 12/28/18 History mupirocin 1 applic TOPICAL DIRECTED PRN 04/16/18 12/28/18 History simvastatin 1 tab PO DAILY 04/16/18 12/28/18 History albuterol sulfate 0.63 mg INHALATION Q4H PRN 12/28/18 12/28/18 History fluticasone-salmeterol [Advair 1 inh INHALATION BID 12/28/18 12/28/18 History Diskus] furosemide 20 mg PO DAILY 12/28/18 12/28/18 History potassium chloride 10 meq PO DAILY 12/28/18 12/28/18 History Allergies Allergy/AdvReac Type Severity Reaction Status Date / Time No Known Drug Allergies Allergy Verified 04/16/18 16:59 Review of Systems Review of Systems All systems reviewed & are unremarkable except as noted in HPI and below Exam Vital Signs (past 8 hours): - 12/29/18 01:40 12/29/18 03:30 Temperature 98 F Pulse Rate 82 86 Respiratory Rate 18 20 Blood Pressure 144/84 H Pulse Oximetry 97 95 Oxygen Delivery Method Nasal Cannula Oxygen Flow Rate 3 Narrative Exam Narrative: Pleasant elderly female somewhat short of breath with minimal activity. HEENT: Normocephalic atraumatic, extraocular muscles are intact, oropharynx is clear, neck is supple, no appreciable JVD. Lungs: Decreased breath sounds with bibasilar crackles noted. Cardiac exam: Irregularly irregular normal S1-S2 Abdomen: Soft nontender nondistended without hepatosplenomegaly Extremities: 1+ edema Neuro exam: Patient is awake alert and appropriate, and cranial nerves are intact strength is symmetric and equal, sensations grossly intact, gait is not assessed Objective Labs Result Diagrams: 12/28/18 19:00 12/28/18 19:00 Labs: Laboratory Results - last 24 hr 12/28/18 12/28/18 12/28/18 19:00 19:00 19:00 WBC 8.7 RBC 4.17 Hgb 9.2 L Hct 29.8 L MCV 71.6 L MCH 22.0 L MCHC 30.7 RDW 18.7 H Plt Count 332 Neut % (Auto) 69.2 Lymph % (Auto) 17.6 L Mclennan % (Auto) 9.3 Eos % (Auto) 3.5 Baso % (Auto) 0.4 Neut # (Auto) 6000 Lymph # (Auto) 1500 Mclennan # (Auto) 800 Eos # (Auto) 300 Baso # (Auto) 0 PT 12.5 INR 1.1 APTT 30 Sodium 139 Potassium 4.7 Chloride 100 Carbon Dioxide 30 BUN 19 H Creatinine 0.90 Estimated GFR 59.9 L BUN/Creatinine Ratio 21.1 Glucose 111 H Calcium 9.4 Total Bilirubin 0.4 AST 32 ALT 24 Alkaline Phosphatase 137 H Troponin I B-Natriuretic Peptide 447 H Total Protein 8.2 Albumin 4.1 Globulin 4.1 Albumin/Globulin Ratio 1.0 Blood Type Antibody Screen 12/28/18 12/28/18 12/28/18 19:00 19:00 23:27 WBC RBC Hgb Hct MCV MCH MCHC RDW Plt Count Neut % (Auto) Lymph % (Auto) Mclennan % (Auto) Eos % (Auto) Baso % (Auto) Neut # (Auto) Lymph # (Auto) Mclennan # (Auto) Eos # (Auto) Baso # (Auto) PT INR APTT Sodium Potassium Chloride Carbon Dioxide BUN Creatinine Estimated GFR BUN/Creatinine Ratio Glucose Calcium Total Bilirubin AST ALT Alkaline Phosphatase Troponin I < 0.012 < 0.012 B-Natriuretic Peptide Total Protein Albumin Globulin Albumin/Globulin Ratio Blood Type O Negative Antibody Screen Negative Assessment & Plan Assessment Narrative: 83-year- female admitted with acute congestive heart failure, etiology unclear, present on admission Atrial fibrillation, chronic, present on admission, rate controlled Hypertension, chronic, present on admission Anemia, acute, etiology unclear. Hyperlipidemia, chronic, present on admission Allergic rhinitis, chronic Morbid obesity, present on admission Plan Narrative: At this time will Hep-Lock the patient's IV. Will obtain 2D echo to rule out systolic versus diastolic dysfunction. In addition will start her on IV Lasix. Will continue her usual home medications. Quality VTE Deep Vein Thrombosis/Pulmonary Embolism Present on Admission: No
[2018-12-29] MEDS: LOSARTAN 25 MG TABLET PO (09:46)
[2018-12-29] MEDS: ENOXAPARIN 40 MG/0.4 ML SYRINGE SUBCUT (09:46)
[2018-12-29] MEDS: FUROSEMIDE 40 MG/4 ML VIAL IV (09:47)
[2018-12-29] MEDS: POTASSIUM CHLORIDE 20 MEQ TAB 40 MEQ PO (09:48)
[2018-12-29] MEDS: ATENOLOL 50 MG TABLET PO (09:48)
--- NOTE | 2018-12-29 10:42 | PC.NURSE ---
AM NOTE - pt awakens easily, states her breathing has improved, wearing her own cpap at night w/02 bleed in 1L, removed for breakfast and monitored 02, remained 93-95%, pt does become sob w/more labored breathing with any exhertion, up dangle position for breakfast, denies dizziness, bs dim with crackles llobes, hr irreg 78, Dr. Goldsmith in this am and given 40mg iv lasix, ivf saline locked.
--- NOTE | 2018-12-29 11:04 | CM.DANOTE ---
Patient is an 83 year old female who was admitted on 12/29/18 for SOB. Pt has [facility] and [employer] for insurance and her PCP is Dr. Shook. EMR was reviewed. Per MD, pt to have an Echo today and continue dieresis and not medically stable to d/c yet. Per PT, brightal completed and recommending likely safe d/c home with and Dtr support when stable. SW met bedside with pt and explained role and updated white board and pt confirmed that she still lives at home in [place] with her and her supportive adult Dtr lives next door. Pt denies any hx of HH or SNF and states she just recently discharged from outpt Cardiopulmonary rehab at [facility]. Pt does not anticipate any SW needs at d/c and preference is to d/c home with family support when medically stable. Plan: SW to follow for likely pt d/c home with spouse and adult Dtr assist when medically stable. SW to follow for any further identified discharge planning needs. Makenzie VILLA Discharge Planning/Care Management Advanced directive, confirm from FAMILY Start: 12/29/18 02:24 Freq: Q24H Status: Active Protocol: Document 12/29/18 10:00 NEE (Rec: 12/29/18 10:45 NEE [id number]) Advance Directive, confirm on record Time 10:30 Person contacted patient Copy received No CM Discharge Assessment Start: 12/29/18 10:59 Freq: Status: Active Protocol: Document 12/29/18 11:00 BF (Rec: 12/29/18 11:04 BF [id number]) Discharge Planning Assessment Assigned Quality Assurance Coordinator DAISY Banegas Advance Directives? No: unknown, desires full code Advance Directives on File No: unknown, desires full code History Provided By Patient Medical Record Has Patient been admitted in last 30 No days? Prior Living Arrangements House Household Members spouse Type of transporation used prior to Drives own vehicle admit Comment Lives at home with spouse and is Independent with ADLs at baseline with adult dtr living next door. Willing to Return to Facility? Lives at home. Independent with ADL's Yes Is patient alert and oriented? Yes Caregiver for Another No Community Services used prior to Respiratory Therapy admission: Comment Likely home with spouse anticipated Barriers to Discharge No Discharge Plan Home Community Services Respiratory Therapy Transportation Arrangement Likely spouse or adult Dtr can provide transport home at d/c . Referrals Initiated None needed Whiteboard Updated in Patient Room with Yes name and ext. # of Quality Assurance Coordinator Review Status In Process Please Provide Date Initial DC 12/29/18 Assessment Was Performed Next Review Type Continued Stay Review
[2018-12-29 11:56] LABS: Add Manual Diff / Slide Review NO; Basophils Absolute Auto 100 /uL (0-100); Basophils Percent Auto 1.8 % (0-2); Eosinophils Absolute Auto 0 /uL (0-450); Hematocrit 27.1 % (36-46); Hemoglobin 8.6 g/dL (12.0-16.0); Lymphocytes Absolute Auto 400 /uL (1100-4500); Lymphocytes Percent Auto 9.4 % (25-40); Mean Corpuscular HGB Conc 31.7 % (30-36); Mean Corpuscular Hemoglobin 21.8 PG (26-34); Mean Corpuscular Volume 68.8 fL (80-100); Monocytes Absolute Auto 100 /uL (0-900); Monocytes Percent Auto 2.2 % (3-14); Neutrophils Absolute Auto 4100 /uL (1500-7000); Neutrophils Percent Auto 86.6 % (50-75); Platelet Count 282 X10^3/uL (150-400); Red Blood Cell Count 3.94 X10^6/uL (4.0-5.2); Red Cell Distribution Width 18.8 % (11.6-14.8); White Blood Cell Count 4.7 X10^3/uL (4.5-11.0)
--- NOTE | 2018-12-29 12:14 | PT.IIE ---
Medical History (Last Reviewed 12/29/18 @ 08:55 by Liana Goldsmith MD) Atrial fibrillation (Acute) Hyperlipidemia (Acute) Hypertension (Acute) Diabetes (Acute) Physical Therapy Inpatient Evaluation/Re-Eval M1 PT/OT-IP Prior Functional Status Start: 12/29/18 09:31 Freq: NEEDED Status: Active Protocol: Document 12/29/18 10:50 RS (Rec: 12/29/18 12:14 RS [id number]) Medical Review Prior Functional Status Medical History Reviewed Yes Diet/Fluid Consistency Regular Communication no known deficits Mobility and Gait ind in the home, uses a 4WW outside the home, drives, has no issue getting 4WW in/out of the car Activities of Daily Living and IADL's doesn't require any assist Prior Functional Level (Other details) denies falls Social History Household Members spouse Living Arrangements House Number of Floors (Floors) One Floor Number of Stairs To Enter/Railing? ramped entry Home Environment High Toilet Walk in Shower Tub/Shower Doors Ramp Home Equipment Four Wheel Walker Manual Wheelchair Power Wheelchair/Scooter Shower Seat without Backrest Hand Held Shower Grab Bars Near Toilet Grab Bars In Shower Employment Status Retired M2 PT-IP Current Condition Start: 12/29/18 09:31 Freq: NEEDED Status: Active Protocol: Document 12/29/18 10:50 RS (Rec: 12/29/18 12:14 RS [id number]) Physical Therapy Current Condition Current Condition Evaluation Date 12/29/18 Treatment Diagnosis impaired functional endurance - SELBY Onset Date 12/27/18 M3 PT-IP Subjective Start: 12/29/18 09:31 Freq: NEEDED Status: Active Protocol: Document 12/29/18 10:50 RS (Rec: 12/29/18 12:14 RS [id number]) Subjective Physical Therapy Visit Type Type Initial Evaluation Visit Start Time 10:05 Visit Stop Time 10:50 Total Visit Minutes 45 Physical Therapy Visit Comments Patient Comments Pt reports being able to breathe a lot better today than yesterday. Pt very agreeable to participate in therapy. Patient Goals go home once medically ready Therapy Pain Assessment Pain When Pain Assessed At Rest Pain Present Pain Present Denied Pain M4 PT-IP Mobility and Gait Start: 12/29/18 09:31 Freq: NEEDED Status: Active Protocol: Document 12/29/18 10:50 RS (Rec: 12/29/18 12:14 RS [id number]) PT-Bed Mobility Assessment Supine to Sit Supine to Sit Standby Assistance 1 Person Assistance Head of Bed Elevated Sit to Supine Sit to Supine Standby Assistance 1 Person Assistance Bedrails Scooting Scooting to Edge of Bed Standby Assistance Scooting Up and Down in Bed Standby Assistance PT-Transfer Assessment Sit to and From Stand Sit to and from Stand Standby Assistance 1 Person Assistance Equipment Transfer Assistive Device Gait Belt Transfers Transfer Destination Bed Transfer Technique walked Transfer Ability Level of Assist Standby Assistance Comments Mobility Comments Pt very strong and able to perform all bed mobility and transfers without additional physical assist. Pt on RA t/o session and without any desat (93-97%). Pt did get dizzy on first attempt at getting up, no drop in BP. After a few minutes rest pt able to stand up without dizziness. Pt did admit to not drinking much today or yesterday. Even when dizzy, pt was steady and practiced good safety awareness, wanted to sit back down instead of trying to continue walking. Gait Assessment Gait Gait Assistance Required: Standby Assistance Distance (Feet) 70 Assistive Devices Assistive Device Gait Belt Gait Deviations General Gait Pattern Decreased Stride Length Wide Based Gait Factors Limiting Gait Function Factors Limiting Gait Function Decreased Activity Tolerance Respiratory Distress Comments Gait Comments Pt most limited by respiratory status, spO2 remained between 93-97% entire walking session . No visible signs of SOB while walking, but pt did have extensive use of seconday respiration muscles once back in bed coinciding with pt's report of increased SOB. SpO2 still 94% on RA at that point. RN notified. Pt did not have any LOBs and was fairly stable . Only abormalities were wide step widths and short step lengths. Stair Climbing Assessment Comments Stair Climbing Comments not tested, pt doesn't have steps PT-Balance Assessment Sitting Balance and Reactions Static Sitting Balance Ability Normal Dynamic Sitting Balance Ability Good Standing Balance and Reactions Static Standing Balance Ability Good Dynamic Standing Balance Ability Good Device Used none M5 PT-IP Objective Assessments Start: 12/29/18 09:31 Freq: NEEDED Status: Active Protocol: Document 12/29/18 10:50 RS (Rec: 12/29/18 12:14 RS [id number]) Orientation Orientation/Cognition Level of Alertness Alert Orientation Name Age Birthday Month Date Year Day of Week Place Situation Language Function Ability No Deficits Noted Safety Awareness Understands Safety Issues Memory Description No Deficits Noted Gross Range of Motion Upper Extremity ROM Assessment Within Functional Limits Lower Extremity ROM Assessment Within Functional Limits Strength Upper Extremity Strength Assessment Within Functional Limits Lower Extremity Strength Assessment Within Functional Limits M6 PT-IP Treatment Start: 12/29/18 09:31 Freq: NEEDED Status: Active Protocol: Document 12/29/18 10:50 RS (Rec: 12/29/18 12:14 RS [id number]) Physical Therapy Treatment Education Education Provided Safety M7 PT-IP Assessment and Plan Start: 12/29/18 09:31 Freq: NEEDED Status: Active Protocol: Document 12/29/18 10:50 RS (Rec: 12/29/18 12:14 RS [id number]) PT Summary Assessment and Plan Potential Rehabilitation Potential Good Status of Condition at Evaluation Evolving Summary Impairments Activity Tolerance Assessment Summary Pt admitted to hospital with SOB/SELBY, is still getting work up and starting lasix. During PT session pt was SBA for all mobility and did not desat with household distance activity, although, pt did report increase in SOB. Despite good stability while walking, pt's functional endurance is quite below her reported functional baseline. Pt will be safe to discharge home once medically ready, but recommend pt work with acute PT 1x/day while still here to improve overall activity tolerance. Pt in agreement with this plan. Goals Bed Mobility Goal Independent Transfer Goal Independent Gait Goal Independent Gait Distance 150 Frequency of Treatment Frequency Of Treatment Once a Day Treatment Plan Physical Therapy Treatment Plan Bed Mobility Training Gait Training Therapeutic Exercise Balance Retraining Discharge Planning Other Recommendations and Next Treatment ther ex, gait progression, bed Focus mobility from flat bed, energy conservation Recommendations To Nursing Amount of Assist Needed Standby Assistance 1 Person Assist Discharge Recommendations PT Discharge Recommendations Home Home Health
[2018-12-29 15:43] LABS: Anisocytosis 1+; Hypochromasia 2+; Microcytosis 1+; Polychromasia 1+
--- NOTE | 2018-12-29 16:04 | OT.IP.TRT ---
Occupational Therapy Treatment Note M3 OT- IP Subjective and Pain Start: 12/29/18 15:59 Freq: Status: Active Protocol: Document 12/29/18 16:01 [facility] (Rec: 12/29/18 16:03 [facility] [id number]) OT- Subjective Occupational Therapy Visit Type Type Progress Note Notes Pt approached for OT eval, pt states assists her for all needs at home especially to get dressed after a shower and feels that OT not needed at this time. Pt states insists on helping her even though she can do more for herself. Therefore discharge OT eval orders and Pt to continues to see pt for activity tolerance and endurance needs.
[2018-12-29] MEDS: ALBUTEROL/IPRATROPIUM 3 ML AMPUL INH (18:31)
[2018-12-29] MEDS: SIMVASTATIN 40 MG TABLET PO (20:21)
[2018-12-29] MEDS: IBUPROFEN 600 MG TABLET PO (21:44)
--- NOTE | 2018-12-29 22:13 | PC.NURSE ---
1500- assumed care of pt from outgoing shift. pt awake and alert. laying comfortably in bed. pt cooperative and compliant. later on in shift pt request breathing treatment. pt not audibly wheezing but had some very sparse wheezes to nathalie bases. Pt calls and waits for assistance. PT talkative. Pt called and spoke to him for a while. Pt has scds on. reports that her legs are jjumpy admin advil per request and scds removed for a short while. bed alarm on. side rails upx3 will continue to monitor pt for safety.
[2018-12-30] MEDS: FUROSEMIDE 40 MG/4 ML VIAL IV ×2 (00:03→12:44)
[2018-12-30] MEDS: SODIUM CHLORIDE 0.9% FLUSH 10 ML IV ×2 (00:04→09:01)
[2018-12-30 00:10] VITALS: O2SAT 97
[2018-12-30 04:00] VITALS: BP 150/76; PULSE 73; RESP 16; TEMP 36.5; O2SAT 96
[2018-12-30 04:17] VITALS: O2SAT 95
[2018-12-30 08:50] VITALS: BP 138/57; PULSE 74; RESP 22; TEMP 36.7; O2SAT 95
[2018-12-30] MEDS: predniSONE 20 MG TABLET 40 MG PO (08:59)
[2018-12-30] MEDS: POTASSIUM CHLORIDE 20 MEQ TAB 40 MEQ PO (08:59)
[2018-12-30] MEDS: ENOXAPARIN 40 MG/0.4 ML SYRINGE SUBCUT (09:00)
[2018-12-30] MEDS: LOSARTAN 25 MG TABLET PO (09:00)
[2018-12-30] MEDS: ATENOLOL 50 MG TABLET PO (09:00)
--- NOTE | 2018-12-30 09:50 | PC.NURSE ---
AM NOTE - sitting dangle position for breakfast this am, states her breathing has improved and cpap off now and sat 98% ra, some coarse crackles lower lobe, >r, no sob at rest noted, didn't sleep well last night due to lasix admin and freq voids, declines any pain medication this am.
[2018-12-30 09:52] VITALS: O2SAT 98
--- NOTE | 2018-12-30 10:30 | PT.IPTN ---
Current Diagnoses Heart failure, unspecified (12/29/18) Physical Therapy Treatment Note M2 PT-IP Current Condition Start: 12/29/18 09:31 Freq: NEEDED Status: Active Protocol: Document 12/29/18 10:50 RS (Rec: 12/29/18 12:14 RS [id number]) Physical Therapy Current Condition Current Condition Evaluation Date 12/29/18 Treatment Diagnosis impaired functional endurance - SELBY Onset Date 12/27/18 M3 PT-IP Subjective Start: 12/29/18 09:31 Freq: NEEDED Status: Active Protocol: Document 12/30/18 10:30 AB (Rec: 12/30/18 12:40 AB [id number]) Subjective Physical Therapy Visit Type Type Treatment Note Visit Start Time 10:30 Visit Stop Time 10:40 Total Visit Minutes 10 Number of MOLYBDENUM STEAMER OPERATOR Visits 0 Physical Therapy Visit Comments Patient Comments pt agreeable to do PT Therapy Pain Assessment Pain Present Pain Present Denied Pain M4 PT-IP Mobility and Gait Start: 12/29/18 09:31 Freq: NEEDED Status: Active Protocol: Document 12/30/18 10:30 AB (Rec: 12/30/18 12:40 AB [id number]) PT-Transfer Assessment Sit to and From Stand Sit to and from Stand Standby Assistance 1 Person Assistance Equipment Transfer Assistive Device None Gait Belt Orthotic/Prosthetic Devices or Brace: No Gait Assessment Gait Gait Assistance Required: Standby Assistance Distance (Feet) 150 Assistive Devices Assistive Device None Gait Belt Orthotic/Prosthetic Devices or Brace: No Gait Deviations General Gait Pattern Antalgic Factors Limiting Gait Function Factors Limiting Gait Function Decreased Activity Tolerance Decreased Strength Respiratory Distress Comments Gait Comments pt requiring SBA with ambulation. O2 sat maintained at 94-97% with ambulation. M5 PT-IP Objective Assessments Start: 12/29/18 09:31 Freq: NEEDED Status: Active Protocol: Document 12/29/18 10:50 RS (Rec: 12/29/18 12:14 RS [id number]) Orientation Orientation/Cognition Level of Alertness Alert Orientation Name Age Birthday Month Date Year Day of Week Place Situation Language Function Ability No Deficits Noted Safety Awareness Understands Safety Issues Memory Description No Deficits Noted Gross Range of Motion Upper Extremity ROM Assessment Within Functional Limits Lower Extremity ROM Assessment Within Functional Limits Strength Upper Extremity Strength Assessment Within Functional Limits Lower Extremity Strength Assessment Within Functional Limits M6 PT-IP Treatment Start: 12/29/18 09:31 Freq: NEEDED Status: Active Protocol: Document 12/30/18 10:30 AB (Rec: 12/30/18 12:40 AB [id number]) Physical Therapy Treatment Education Education Provided Safety M7 PT-IP Assessment and Plan Start: 12/29/18 09:31 Freq: NEEDED Status: Active Protocol: Document 12/30/18 10:30 AB (Rec: 12/30/18 12:40 AB [id number]) PT Summary Assessment and Plan Potential Rehabilitation Potential Good Status of Condition at Evaluation Evolving Summary Impairments Activity Tolerance Assessment Summary pt improving slowly but continues to have decrease activity tolerance. pt still c/o SOB and feeling tired after walking. pt plans to go home with spouse to assist her. Goals Bed Mobility Goal Independent Transfer Goal Independent Gait Goal Independent Gait Distance 150 Frequency of Treatment Frequency Of Treatment Once a Day Treatment Plan Physical Therapy Treatment Plan Bed Mobility Training Gait Training Therapeutic Exercise Balance Retraining Discharge Planning Other Recommendations and Next Treatment increase gait distance Focus Recommendations To Nursing Amount of Assist Needed Standby Assistance Discharge Recommendations PT Discharge Recommendations Home Outpatient PT Other Discharge Recommendations may benefit from cardiopulmo rehab
[2018-12-30 11:55] VITALS: BP 149/57; PULSE 58; RESP 22; TEMP 36.6; O2SAT 98
--- NOTE | 2019-01-01 19:56 | PM.DS.1 ---
History of Present Illness Chief complaint: states hard time breathing Narrative: The patient is an 83-year-old female who presents to the hospital for shortness of breath. The patient was in her usual state of health until 2 days ago. She began to develop progressive shortness of breath. She is typically able to ambulate around her home. However she was unable to ambulate to the bathroom without getting short of breath. She has noted increasing lower extremity edema. She does admit to increasing salt intake. Her weight is between 110 and 115 and has been unchanged. The patient has a history of shortness of breath dating back to 1 year. She was seen by blow moulding machine operator who did not confirm a diagnosis of COPD. In addition the patient is followed by swiss machinist. She has a history of chronic atrial fibrillation. She takes Lasix for lower extremity edema. She does not have a diagnosis of heart failure. However the patient notes increasing swelling and shortness of breath with recent increased salt intake. She reports having a cardiac echo about 1 year ago. Patient had no associated palpitations or chest pain. She denies any orthopnea, paroxysmal nocturnal dyspnea, fever chills. Patient has had a cough which at times has been productive. She has had no fever. That she does report a chronic runny nose which she relates to allergies. She denies any headache or blurred vision she has intra-ocular lens implants and has had some visual disturbance recently. She has no nausea vomiting or diarrhea. She denies any dysuria hematuria or pyuria. She has no joint pains or rashes. Further review of systems is negative. Patient was evaluated in the emergency department. She was given 1 dose of Lasix. She also was treated for reactive airways disease. She reports today feeling much better. Breathing has improved. However she continues to be short of breath and is quickly winded at rest. 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 She received IV Lasix during her hospital stay and had significant improvement in her breathing. Patient also received 1 dose of steroids. She was able to ambulate without difficulty and felt back to her baseline. Patient was deemed appropriate for discharge and discharged home. Status at Discharge Functional status at discharge: independent ambulation Overall status at discharge: patient is back to baseline Time Spent with Patient Less than 30 minutes Exam Vital Signs (past 8 hours): Oxygen Delivery Method Room Air Oxygen Flow Rate 0 Narrative Exam Narrative: Pleasant female anxious To go home Lungs: Decreased breath sounds but clear Cardiac exam: Irregularly Irregular normal S1-S2 Abdomen: Soft nontender Extremity: 1+ edema Objective Labs Result Diagrams: 12/29/18 11:10 12/28/18 19:00 Discharge Plan Discharge Plan Patient Disposition: Home Discharge Med Rec/Prescriptions Prescriptions: Continued simvastatin 20 mg tablet 1 tab PO DAILY RF: 0 losartan 25 mg tablet 25 mg PO DAILY RF: 0 mupirocin 2 % ointment 1 applic Topical DIRECTED PRN (Reason: Outbreak) RF: 0 albuterol sulfate 90 mcg/actuation HFA aerosol inhaler 2 puff Inhalation Q4H PRN (Reason: Wheezing) RF: 0 atenolol 50 mg tablet 50 mg PO DAILY RF: 0 loratadine 10 mg tablet 1 tab PO DAILY PRN (Reason: Allergy Symptoms) RF: 0 albuterol sulfate 0.63 mg/3 mL Solution For Nebulization 0.63 mg INHALATION Q4H PRN (Reason: Shortness Of Breath Or Wheezing) RF: 0 Advair Diskus 250-50 mcg/dose Blister With Device 1 inh INHALATION BID RF: 0 potassium chloride 10 mEq Tablet Extended Release 10 meq PO DAILY RF: 0 furosemide 20 mg Tablet 20 mg PO DAILY RF: 0 Follow up/Referrals: Loren Shook MD [Primary Care Provider] - Provider Discharge Instructions Diet: Low-sodium Activity: as tolerated Visit Report/Discharge Packet Instructions: DI for Heart Failure, How to Manage Shortness of Breath Discharge Data Primary Care Provider: Loren Shook Attending Provider: Liana Goldsmith Admit Date/Time: 12/29/18 00:12 Discharges patient from system. Discharge Date/Time: 12/30/18 16:40 Quality VTE Deep Vein Thrombosis/Pulmonary Embolism Present on Admission: No
== END 2018-12-30 16:40 | disposition home or self-care (01) | DRG 291 ==
LOC: ED 21:01 → AC 12-29 09:09
PROVIDERS: Admitting Provider Internal Medicine; Emergency Provider Emergency Medicine; PCP Internal Medicine; Visit Provider Internal Medicine
DX: I11.0 Hypertensive heart disease with heart failure (principal); I50.31 Acute diastolic (congestive) heart failure; D64.9 Anemia, unspecified; E66.01 Morbid (severe) obesity due to excess calories; Z68.39 Body mass index [BMI] 39.0-39.9, adult; I48.2 Chronic atrial fibrillation; J44.9 Chronic obstructive pulmonary disease, unspecified; E11.9 Type 2 diabetes mellitus without complications; E78.5 Hyperlipidemia, unspecified
CPT/HCPCS: 36415; 36591; 71045; 71275; 80053; 83880; 84484; 85025; 85610; 85730; 86850; 86900; 86901; 93005; 93306; 94640; 94760; 96361; 96374; 96375; 97116; 97161; 97530; 99283; 99285; J1650; J1940; J2930; Q9967

== ENCOUNTER → 2019-04-09 11:20 | Outpatient (CLI) | payer MEDICARE, OTHER, SELFPAY ==
[2019-03-31 13:07] VITALS: BMI 39.0
--- NOTE | 2019-04-10 11:44 | PM.TREADMILL ---
Cardiac Stress Test Report Referral & Results Date Patient Seen: 04/10/19 Time Patient Seen: 11:30 Requesting provider: Wilberto Godoy Indication: Exertional dyspnea Procedure Note: After both written and verbal informed consent the patient had an IV started by the diagnostic imaging RN and then was hooked up to the treadmill monitoring system. The patient was placed on the treadmill at 1 mile an hour with no elevation and was then injected with the Lorena scan material. The Cardiolite was then immediately administered. The patient spent an additional 2-3 minutes on the treadmill before being returned to the [facility] in the supine position. The patient had a normal response to all infused materials, including mild SOB. Impression: Away perfusion imaging for diagnostic information. Please note: Actual ECG tracings can be found in the PACS system.
--- NOTE | 2019-04-10 14:36 | DI.NM.S_ITS ---
DATE OF SERVICE: 04/09/2019 PROCEDURE PERFORMED: Pharmacologic vasodilator stress and rest myocardial perfusion imaging with gating to assess ejection fraction and regional wall motion. ORDERING PROVIDER: MARCIN Dhaliwal. INDICATIONS: The patient is an 83-year-old female with chronic atrial fibrillation and exertional dyspnea. PHARMACOLOGIC STRESS: Per protocol, 0.4 mg of regadenoson was infused, augmented with low-level walking. She had a normal heart rate and blood pressure response and had no chest discomfort but mild dyspnea. Her resting ECG shows atrial fibrillation but is otherwise normal and there are no significant ST-segment shifts with stress. No were no other arrhythmias. Per protocol, 28.0 mCi a technetium-99 Myoview was injected, and the patient was imaged 20 minutes later using a gated SPECT acquisition protocol. The previous day, the patient had been injected with 27.1 mCi a technetium-99 Myoview for resting images and images were obtained 30 minutes after injection using a gated SPECT acquisition protocol as well. FINDINGS: 1. Raw Data: There is a fair myocardial tracer uptake with mild breast shadows noted. The lung/heart ratio is elevated at 0.46 which can be a sign of pulmonary congestion but is nonspecific. The TID ratio was normal at 1.07. 2. Quantitative Gated SPECT: Post stress ejection fraction is calculated at 86% without any regional wall motion abnormality. Resting ejection fraction is at 84% with a normal end-diastolic volume of 64 mL. 3. Myocardial Perfusion Imaging: Post stress supine images show a fairly normal myocardial perfusion pattern with a very mild perfusion defect in the distal inferior wall as well as in the very distal anterior wall, both of which completely resolve on the prone images suggesting they reflect attenuation artifact. There are no concerning perfusion defects. The resting images show a similar perfusion pattern, although the anterior defect is slightly less prominent. CONCLUSIONS: 1. Probable normal myocardial perfusion study. 2. Small, subtle, fixed distal inferior defect and a small, subtle, partially reversible distal anterior defect, both of which completely resolve on prone imaging, most suggestive of attenuation artifact. A small volume of ischemia cannot be excluded. 3. Normal left ventricular systolic size and function without any regional wall motion abnormality. The lung/heart ratio is elevated which can be a sign of pulmonary congestion but is nonspecific and clinical correlation is recommended. 4. No angina or ECG evidence of ischemia with pharmacologic vasodilator stress. Baseline atrial fibrillation is present. Lizy Cottrell - Shannan/ doc#: [id number]/job#: [id number] dd: 04/10/2019 12:48:00 dt: 04/10/2019 14:17:00 DICTATING MD/COPIES TO: Hu Farr MD; MARCIN Dhaliwal COPIES MNE: OLIVER LANDRY
== END ==
PROVIDERS: PCP Family Medicine; Visit Provider Nurse Practitioner Family
DX: I48.2 Chronic atrial fibrillation (principal); R06.00 Dyspnea, unspecified; R06.02 Shortness of breath
CPT/HCPCS: 78452; 93016; 93017; 93018; A9502; J2785

== ENCOUNTER → 2019-04-30 12:53 | Outpatient (CLI) | payer MEDICARE, OTHER, SELFPAY ==
[2019-03-31 13:07] VITALS: BMI 39.0
== END ==
PROVIDERS: PCP Family Medicine; Visit Provider Specialist
DX: Z71.89 Other specified counseling (principal)

== ENCOUNTER 2019-05-07 10:36 | Inpatient (IN) | payer MEDICARE, OTHER, SELFPAY ==
[2019-03-31 13:07] VITALS: BMI 39.0
[2019-04-27 09:01] VITALS: BMI 37.3
[2019-05-07] VITALS (15 sets, daily range): BP systolic 105–151; BP diastolic 41–75; PULSE 59–100; RESP 12–22; TEMP 35.7–37.2; O2SAT 94–99; BMI 37.3
--- NOTE | 2019-05-07 | PATH_ITS ---
[facility] Accession Number: [id number] . 01 Material submitted: . colon - RIGHT COLON . 02 Diagnosis: Right Colon, Resection: Tubular adenoma, 4.3 cm, widely free of resection margins. Incidental intramucosal lymphoid aggregates. Fibrous oblieration of the tip of the appendix. Segment of terminal ileum with no diagnostic abnormality. Negative for high-grade dysplasia or invasive malignancy. 12 lymph nodes negative for neoplasm. 05/11/2019 . 02 Comment: The overall findings are consistent with the reported clinical history of a large adenoma not amendable to endoscopic resection. There is no evidence of invasive malignancy. . 02 Electronically signed: . Alberto Moctezuma MD, PhD, Pathologist NPI- [id number] . 01 Gross description: . Received in formalin, labeled right colon, is a partially opened segment of colon which consists of terminal ileum (length-1.2 cm, proximal diameter-2.1 cm), ileocecal valve, cecum and ascending colon (length-14.8 cm, distal diameter-2.8 cm), attached appendix (length-5.2 cm, diameter-0.5 cm) and attached mesentery (up to 10.5 cm in depth). The resection margins are received stapled. The mucosa is simon smooth and shiny with normal folds. A simon rubbery polypoid lesion (4.3 x 2.5 x 1.2 cm) is identified within the ascending colon 2.5 cm from the ileocecal valve, 5.5 cm from the appendiceal orifice, 4.8 cm from the proximal, 8.2 cm from the distal, and 4.6 cm from the radial resection margins. The lesion is 0.2 cm from the serosa and does not appear to extend through the wall and into the adipose tissue. 2.0 cm distal to the lesion is a tattooed area (1.8 x 1.5 cm). Multiple polypoid lesions (0.1 cm-0.2 cm) are identified throughout the remaining mucosa. The appendix is unremarkable. No other nodules, masses or lesions are identified. Multiple possible lymph nodes (0.1 cm-0.3 cm) are identified. The resection margins are inked black and the serosa is inked blue. Section code: (A1) proximal resection margin with ileocecal valve, longitudinal insurance verification representative; (A2) distal resection margin, longitudinal insurance verification representative; (A3) mass with serosa, insurance verification representative serial sections; (A4) radial resection margin, insurance verification representative serial sections; (A5-A10) lesion, insurance verification representative serial sections; (A11-A17) normal mucosa between lesion and the tattooed area, serially sectioned, entirely submitted; (A18, A19) mucosa with apparent polyps, insurance verification representative serial sections; (A20) appendix, insurance verification representative serial sections and one-half of the bivalved tip; (A21-A23) multiple intact possible lymph nodes. ([id number]) /MRV . 02 Pathologist provided ICD-10: D12.2 . 02 CPT . 788639 Performed at: 01 [facility] [address] [id number] MD Anthony Healy MD Phone: [phone] Performed at: 02 [facility] [place] [id number] [place] [id number] MD Amaya Matias MD Phone: [phone]
[2019-05-07] MEDS: LACTATED RINGERS 1,000 ML 100 ML IV (11:35)
[2019-05-07] MEDS: INSULIN REGULAR 100 UNIT/ML 3 ML VIAL IV (11:37)
--- NOTE | 2019-05-07 11:51 | PM.PREOP ---
Pre-operative Note Interval Note History & Physical reviewed/Exam performed by Physician: Yes Changes to H&P: Yes H&P completed within 30 days and has changed as indicated here:: Please see history and physical from 04/22/2019. Sugar this morning is greater than 200. Patient was given IV insulin and we will recheck before the operation to make sure it has come down. A bed was reserved yesterday in the ICU as per the request of anesthesia should it be needed.
[2019-05-07] MEDS: PIPERACILLIN-TAZO 3.375 GM/50 ML FROZ.PIGGY IV ×2 (13:06→19:30)
--- NOTE | 2019-05-07 14:03 | SUR.OPER ---
Supine on padded OR bed, head on pillow, arm padded and tucked at right side, legs uncrossed, safety belt at thigh, tape over blanket over lower legs .
[2019-05-07] MEDS: BUPIVACAINE 0.5% (PF) VIAL 30 ML INJ (15:12)
--- NOTE | 2019-05-07 16:33 | SUR.OPER ---
at 1350 BG was 87. at 15:15 BG was 108. at 1630 BG was 133.
--- NOTE | 2019-05-07 17:26 | PM.OP.1 ---
Operative Date/Time/Diagnoses Date of procedure: 05/07/19 Time of procedure: 17:27 Pre-op diagnosis: Large polyp not amenable to endoscopic removal and benign on biopsy Post-op diagnosis: same Procedure & Clinicians Procedure: Laparoscopic right colon resection Same procedure as scheduled: Yes Indications: Large benign polyp Surgeon: Pj Stokes Game Bird Farmer: Carmelo Epstein Anesthesia Type: General Operative Notes Findings: Large polyp removed in the specimen. Closure Type: primary Specimen(s): other (Terminal ileum and portion of right colon) Applied: catheter (Garcaí) Blood products transfused: none Procedure in detail: The patient was placed supine on the operating room table and underwent general endotracheal anesthesia. She was placed in lithotomy and prepped and draped in the usual fashion. Because of a large pannus vertical midline incision was made above the umbilicus and carried down under direct vision in the peritoneal cavity. Stay sutures of 0 Vicryl were placed in the fascia. An Angie cannula was inserted. The location of the tattoos in the colon were not readily apparent so 2 additional ports were placed. One was above the 1st port any other was in the left lower abdomen. We examined the colon for tattooing in after an extensive search in review of the colonoscopy report we located the tattooed area in the ascending colon. Two tattoos were seen as described. Attachments of the ascending colon and the proximal transverse colon were divided mobilizing it. The terminal ileum was also mobilized. The patient had an unusually long appendix adherent to the right sidewall. When I felt I had adequately mobilized the intestine a transverse incision was made in the right abdomen above the umbilicus and we retracted the rectus medially. The abdomen was entered and the intestine delivered into the wound. We chose a point in the colon beyond the tattoos and divided it using a YUSRA stapling device. The mesentery was then divided and the small bowel divided using a YUSRA. This was just proximal to the ileocecal valve. The appendix was completely mobilized and the specimen removed in opened. A polyp was noted to be well within the confines of the specimen. I decided to create a and of small bowel to side of colon anastomosis. This was performed with seromuscular silks in the outer layer and a running 3 0 Vicryl canal type suture line on the inner layer. The anastomosis was patent by palpation and material was able to transfer across it. There was no obvious leak. I made no attempt to close the mesentery due to the large defect. The intestine was returned to the abdomen the abdomen was irrigated and suctioned free of fluid. There was no apparent ongoing bleeding. The anastomosis was examined 1 last time and appeared to be fine. The posterior fascia/peritoneum was closed with a running 0 Vicryl suture. The anterior fascia was closed with a running 1. Maxon suture the subcu was loosely approximated after irrigating with 3 0 Vicryl. The stay sutures at the umbilicus were tied and additional suture placed between them. [place] were used to close the skin in all areas. Dressings were applied patient was awakened and extubated taken recovery room good condition. There were no apparent complications. Due the patient's medical issues and fragile nature she will be kept in the unit overnight. Complications: none Condition: stable Disposition: PACU
[2019-05-07] MEDS: LACTATED RINGERS 1,000 ML 125 ML IV (19:32)
[2019-05-07] MEDS: ACETAMINOPHEN 325 MG TABLET 650 MG PO (20:00)
[2019-05-07] MEDS: GABAPENTIN 300 MG CAPSULE PO (21:09)
[2019-05-08] VITALS (11 sets, daily range): BP systolic 103–152; BP diastolic 40–67; PULSE 59–80; RESP 15–20; TEMP 36.4–36.9; O2SAT 93–99
[2019-05-08] MEDS: LACTATED RINGERS 1,000 ML 125 ML IV ×2 (04:57→13:06)
[2019-05-08] MEDS: FLUTICASONE/SALMETEROL 250/50 14 PUFF DISKUS INH ×2 (09:10→19:38)
[2019-05-08] MEDS: POTASSIUM CHLORIDE 10 MEQ TAB PO (09:25)
[2019-05-08] MEDS: FUROSEMIDE 20 MG TABLET PO (09:25)
[2019-05-08] MEDS: ATENOLOL 50 MG TABLET PO (09:25)
[2019-05-08] MEDS: GABAPENTIN 300 MG CAPSULE PO ×2 (09:25→20:01)
[2019-05-08] MEDS: ENOXAPARIN 40 MG/0.4 ML SYRINGE SUBCUT (09:25)
[2019-05-08] MEDS: LOSARTAN 25 MG TABLET PO (09:33)
[2019-05-08] MEDS: INSULIN ASPART 100 UNIT/ML INSULN PEN SUBCUT ×3 (12:31→19:27)
--- NOTE | 2019-05-08 16:27 | PM.PNPO.1 ---
Subjective Date Patient Seen: 05/08/19 Time Patient Seen: 08:00 Interval history: Patient is postop day 1 from a right colon resection for large benign adenoma. She says her pain is pretty well-controlled. She is feeling a lot of cramping in her lower abdomen. She otherwise is feeling well. Exam Vital Signs (past 8 hours): - 05/08/19 09:10 05/08/19 09:33 05/08/19 10:00 Temperature Pulse Rate 80 Respiratory Rate 15 Blood Pressure 103/41 L Pulse Oximetry 95 94 05/08/19 11:00 05/08/19 15:34 Temperature 98.3 F 98.3 F Pulse Rate 78 67 Respiratory Rate 18 17 Blood Pressure 143/54 H 135/49 L Pulse Oximetry 99 98 Oxygen Delivery Method Room Air Oxygen Flow Rate 0 Narrative Exam Narrative: No apparent distress. Good air movement. Lungs are clear. Abdomen is protuberant soft. Her dressings are dry and intact. Assessment & Plan Post-op Postoperative Procedures Operation Date: 05/07/19 12:45 Actual Procedures Side Surgeon p Laparoscopic hemicolectomy Right Pj Stokes MD Postoperative status narrative: Urine output acceptable. Glucose is under control. Will check labs. Encourage movement.
[2019-05-08 16:51] LABS: Add Manual Diff / Slide Review NO; Basophils Absolute Auto 0 /uL (0-100); Basophils Percent Auto 0.1 % (0-2); Eosinophils Absolute Auto 0 /uL (0-450); Hematocrit 38.3 % (36-46); Hemoglobin 12.5 g/dL (12.0-16.0); Lymphocytes Absolute Auto 900 /uL (1100-4500); Lymphocytes Percent Auto 6.9 % (25-40); Mean Corpuscular HGB Conc 32.7 % (30-36); Mean Corpuscular Hemoglobin 26.1 PG (26-34); Mean Corpuscular Volume 79.7 fL (80-100); Monocytes Absolute Auto 1100 /uL (0-900); Monocytes Percent Auto 7.9 % (3-14); Neutrophils Absolute Auto 11500 /uL (1500-7000); Neutrophils Percent Auto 85.1 % (50-75); Platelet Count 227 X10^3/uL (150-400); White Blood Cell Count 13.6 X10^3/uL (4.5-11.0)
[2019-05-08 17:05] LABS: Alanine Aminotransferase 22 IU/L (9-52); Albumin 3.5 g/dL (3.5-5.0); Albumin Globulin Ratio 1.1 (1.0-2.8); Alkaline Phosphatase 88 U/L (38-126); Aspartate Aminotransferase 29 IU/L (14-36); BUN Creatinine Ratio 21.3 (6-22); Bilirubin Total 0.5 mg/dL (0.2-1.3); Blood Urea Nitrogen 17 mg/dL (7-17); Carbon Dioxide 30 mmol/L (22-32); Chloride 99 mmol/L (98-107); Estimated Glomerular Filt Rate > 60.0 mL/min (>60); Globulin 3.1 g/dL (1.7-4.1); Glucose 141 mg/dL (80-110); HEMOLYSIS < 15 (0-50); Potassium 3.8 mmol/L (3.4-5.1); Sodium 137 mmol/L (137-145); Total Protein 6.6 g/dL (6.3-8.2)
[2019-05-08 17:21] LABS: Anisocytosis 3+; Hypochromasia 2+; Microcytosis 2+
[2019-05-09] VITALS (7 sets, daily range): BP systolic 108–146; BP diastolic 53–73; PULSE 51–71; RESP 15–20; TEMP 36.2–36.6; O2SAT 94–98
--- NOTE | 2019-05-09 04:07 | PC.NURSE ---
Warp Tying Machine Knotter Summary: 0050: Awake, resting in bed. Vital signs stable. IV in place in rt AC with LR infusing at 125cc/hr. CBG 154 (no insulin coverage). Pt denies pain at this time.
[2019-05-09 06:52] LABS: Basophils Absolute Auto 0 /uL (0-100); Basophils Percent Auto 0.1 % (0-2); Eosinophils Absolute Auto 0 /uL (0-450); Hematocrit 35.6 % (36-46); Hemoglobin 11.4 g/dL (12.0-16.0); Lymphocytes Absolute Auto 900 /uL (1100-4500); Lymphocytes Percent Auto 7.9 % (25-40); Mean Corpuscular HGB Conc 32.1 % (30-36); Mean Corpuscular Hemoglobin 25.7 PG (26-34); Mean Corpuscular Volume 80.1 fL (80-100); Monocytes Absolute Auto 700 /uL (0-900); Monocytes Percent Auto 6.4 % (3-14); Neutrophils Absolute Auto 9200 /uL (1500-7000); Neutrophils Percent Auto 85.6 % (50-75); Platelet Count 213 X10^3/uL (150-400); Red Blood Cell Count 4.44 X10^6/uL (4.0-5.2); Red Cell Distribution Width 23.9 % (11.6-14.8); White Blood Cell Count 10.7 X10^3/uL (4.5-11.0)
[2019-05-09] MEDS: INSULIN ASPART 100 UNIT/ML INSULN PEN SUBCUT ×2 (06:57→17:05)
[2019-05-09 07:01] LABS: Add Manual Diff / Slide Review SLIDE REVIEW
[2019-05-09 07:55] LABS: Anisocytosis 2+; Hypochromasia 1+
[2019-05-09] MEDS: FLUTICASONE/SALMETEROL 250/50 14 PUFF DISKUS INH ×2 (08:49→21:06)
[2019-05-09] MEDS: FUROSEMIDE 20 MG TABLET PO (08:53)
[2019-05-09] MEDS: GABAPENTIN 300 MG CAPSULE PO ×2 (08:53→20:51)
[2019-05-09] MEDS: POTASSIUM CHLORIDE 10 MEQ TAB PO (08:54)
[2019-05-09] MEDS: ATENOLOL 50 MG TABLET PO (08:54)
[2019-05-09] MEDS: LOSARTAN 25 MG TABLET PO (08:54)
[2019-05-09] MEDS: ENOXAPARIN 40 MG/0.4 ML SYRINGE SUBCUT (08:54)
--- NOTE | 2019-05-09 09:49 | PC.NURSE ---
Addendum entered by Sandra Monzon R.N. 05/09/19 12:30: MS/GI - assisted up to dangle position x 2 person, once sitting, able stand w/fww and trsf to chair, edi clear liq. Addendum entered by Sandra Monzon R.N. 05/09/19 10:55: MED - called spouse Don and verified that pt takes xaralto 20mg at 8pm. Original Note: AM NOTE - pt is alert, removed cpap this am, talkative, abd soft, passing flatus, no nausea, large transverse abd dsg and visible bandaids x2 cdi, denies discomfort, discussed pain mgt, dosages, will req tylenol if needed, mcguire w/concentrated, clear urine, hr irreg 62.
[2019-05-09] MEDS: LACTATED RINGERS 1,000 ML 125 ML IV ×2 (12:29→20:57)
--- NOTE | 2019-05-09 14:13 | CM.IDA ---
Initial DCP Assessment Note: Pt is an 83 yo female, resident of [place]. Pt likes to be called Perla. Pt is now POD#1 from a right colon resection for a large benign adenoma. PCP: Lisbeth Machado Payer: medicare/[employer]. Met w/pt this morning, explained role. Pt is in very good spirits this morning, she understands from her conversation w/ Dr Stokes that she will remain in the hospital at least another few days but she is okay going one day at a time. Pt lives w/her supportive spouse ( 60 years) and feels confident that she will be able to return home w/his assist when medically cleared. Spouse provides daily assist w/helping pt get dressed, SBA for showering and assist w/cooking and chores when needed. Pt denies any needs from this CHIEF PHYSICAL THERAPIST today and says she has been able to get up w/ assist from SENIOR DIRECTOR FINANCE senior solutions consultant. CHIEF PHYSICAL THERAPIST team will follow closely in case any DC needs arise. Pt confident today about her eventual return home and denies the need for home health at this time. DAISY Whittington Discharge Planning/Care Management CM Discharge Assessment Start: 05/08/19 12:30 Freq: Status: Active Protocol: Document 05/08/19 12:30 SALLY (Rec: 05/08/19 12:34 SALLY [id number]) Discharge Planning Assessment Assigned Technical Service Representative DAISY Bruno DPOA/Assigned Designee Name Bang Gutierrez, spouse Contact Information [phone] Advance Directives? Yes Advance Directives on File No History Provided By Patient Significant Other Medical Record Prior Living Arrangements House Household Members spouse Type of transporation used prior to Drives own vehicle admit Independent with ADL's Yes Is patient alert and oriented? Yes Barriers to Discharge No Discharge Plan Home Transportation Arrangement Likely spouse or adult Dtr can provide transport home at d/c . Referrals Initiated None needed Review Status In Process
[2019-05-09] MEDS: RIVAROXABAN 10 MG TABLET 20 MG PO (20:51)
[2019-05-10] MEDS: LACTATED RINGERS 1,000 ML 125 ML IV (04:49)
[2019-05-10 04:54] VITALS: BP 136/67; PULSE 57; RESP 18; TEMP 36.1; O2SAT 94
[2019-05-10 08:14] VITALS: BP 152/53; PULSE 70; RESP 13; TEMP 36.4; O2SAT 97
[2019-05-10] MEDS: FLUTICASONE/SALMETEROL 250/50 14 PUFF DISKUS INH (09:23)
[2019-05-10] MEDS: LOSARTAN 25 MG TABLET PO (09:27)
[2019-05-10] MEDS: FUROSEMIDE 20 MG TABLET PO (09:27)
[2019-05-10] MEDS: GABAPENTIN 300 MG CAPSULE PO (09:27)
[2019-05-10] MEDS: POTASSIUM CHLORIDE 10 MEQ TAB PO (09:27)
[2019-05-10] MEDS: ATENOLOL 50 MG TABLET PO (09:27)
[2019-05-10 09:32] VITALS: PULSE 61; RESP 18; O2SAT 99
--- NOTE | 2019-05-10 11:21 | PM.PN.1 ---
Subjective Date Patient Seen: 05/10/19 Time Patient Seen: 11:21 Interval history: Feeling quite well, been tolerating liquid diet without any difficulty, no nausea, no emesis Passing flatus and has had a bowel movement. Feels some rhinorrhea and itchy eyes related to seasonal allergies. Overall feels she is making good progress Mobilized only in a limited way to this point Exam Vital Signs (past 8 hours): - 05/10/19 04:54 05/10/19 08:14 05/10/19 09:32 Temperature 97.0 F L 97.6 F Pulse Rate 57 L 70 61 Respiratory Rate 18 13 18 Blood Pressure 136/67 152/53 H Pulse Oximetry 94 97 99 Oxygen Delivery Method Room Air Oxygen Flow Rate 0 Narrative Exam Narrative: Well-appearing no acute distress, bright affect Breathing comfortably on room air Regular strong radial pulse Abdomen soft nontender nondistended, dressings taken down wounds clean dry and intact García in place draining clear yellow urine Periphery warm and well perfused Objective Labs Result Diagrams: 05/09/19 06:19 05/08/19 16:45 Assessment & Plan Assessment & Plan narrative: 83-year-old woman with nonresectable large colon polyp in the right ascending colon now postop day 3. Status post laparoscopic right hemicolectomy with hand-sewn end to side ileal-colic anastomosis. Doing well. Plan: Advance diet to low res Oral pain regimen Physical therapy to assist with mobilization Remove García catheter Restarting home loratadine for allergies Already on home steroid/LABA inhaler, beta-jil, ARB, and rivaroxaban -no evidence of bleeding. Starting home statin May be able to discharge if deemed appropriate by PT and tolerating advanced diet.
[2019-05-10 11:58] VITALS: BP 143/80; PULSE 57; RESP 18; TEMP 36.3; O2SAT 97
--- NOTE | 2019-05-10 12:10 | PT.IIE ---
Current Diagnoses Benign neoplasm of colon, unspecified (05/07/19) Surgery Performed Operation Date: 05/07/19 12:45 Actual Procedures p Laparoscopic hemicolectomy(Right) - Pj Stokes MD Surgical History (Last Updated 04/28/19 @ 14:47 by Debbi Vidales, RN) History of surgery (Acute) History of tonsillectomy and adenoidectomy (Acute ~1939) Hx of bilateral cataract extraction (Acute) Hx of hemorrhoidectomy (Acute ~1968) Medical History (Last Updated 04/28/19 @ 14:47 by Debbi Vidales RN) Atrial fibrillation (Acute) Hyperlipidemia (Acute) Hypertension (Acute) Diabetes (Acute) Arthritis (Acute) Asthma (Acute) Back pain (Acute) Edema (Acute) H/O: hysterectomy (Acute) Hearing impaired (Acute) Leg fracture, left (Acute) RLS (restless legs syndrome) (Acute) Skin cancer (Acute) Sleep apnea with use of continuous positive airway pressure (CPAP) (Acute) TIA (transient ischemic attack) (Acute ~2017) Physical Therapy Inpatient Evaluation/Re-Eval M1 PT/OT-IP Prior Functional Status Start: 05/10/19 13:45 Freq: NEEDED Status: Active Protocol: Document 05/10/19 12:10 AB (Rec: 05/10/19 13:57 AB [id number]) Medical Review Prior Functional Status Medical History Reviewed Yes Communication able to make needs known Mobility and Gait pt stated that she is modified independent with all mobilities and ambulation without AD indoors but uses a 4WW for outdoor mobility. Social History Household Members spouse Living Arrangements House Number of Floors (Floors) One Floor Number of Stairs To Enter/Railing? ramp to enter Home Environment High Toilet Ramp Home Equipment Four Wheel Walker Shower Seat with Backrest Hand Held Shower Grab Bars Near Toilet Grab Bars In Shower Employment Status Retired M2 PT-IP Current Condition Start: 05/10/19 13:45 Freq: NEEDED Status: Active Protocol: Document 05/10/19 12:10 AB (Rec: 05/10/19 13:57 AB [id number]) Physical Therapy Current Condition Current Condition Evaluation Date 05/10/19 Treatment Diagnosis s/p laparoscopic R colon resection; difficulty in walking Onset Date 05/07/19 Precautions Abdominal Surgery Precautions Log Roll Lifting Restrictions Gait Belt above Incisional Area M3 PT-IP Subjective Start: 05/10/19 13:45 Freq: NEEDED Status: Active Protocol: Document 05/10/19 12:10 AB (Rec: 05/10/19 13:57 AB [id number]) Subjective Physical Therapy Visit Type Type Initial Evaluation Visit Start Time 12:10 Visit Stop Time 12:45 Total Visit Minutes 35 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 0 Physical Therapy Visit Comments Patient Comments pt agreeable to do PT Patient Goals to go home Therapy Pain Assessment Pain Present Pain Present Denied Pain M4 PT-IP Mobility and Gait Start: 05/10/19 13:45 Freq: NEEDED Status: Active Protocol: Document 05/10/19 12:10 AB (Rec: 05/10/19 13:57 AB [id number]) PT-Bed Mobility Assessment Rolling Type of Rolling Log Rolling Level of Assist Standby Assistance Supine to Sit Supine to Sit Maximum Assistance 1 Person Assistance Sit to Supine Sit to Supine Minimal Assistance Scooting Scooting to Edge of Bed Standby Assistance PT-Transfer Assessment Sit to and From Stand Sit to and from Stand Standby Assistance Equipment Transfer Assistive Device Gait Belt 4 Wheeled Walker Orthotic/Prosthetic Devices or Brace: No Transfers Transfer Destination Bed Transfer Technique pt ambulated using 4WW Transfer Ability Level of Assist Standby Assistance Comments Mobility Comments Bed mobility training x 4 reps and pt requiring max A for supine to sit and min A for sit to supine and cues. caregiver training conducted with pt and pt's spouse for bed mobility. educated spouse on how to assist pt. spouse was able to demonstrate and assist pt safely with bed mobility. Gait Assessment Gait Gait Assistance Required: Standby Assistance Distance (Feet) 200 Able to Maintain Weight Bearing Status Yes During Gait Assistive Devices Assistive Device Gait Belt 4 Wheeled Walker Orthotic/Prosthetic Devices or Brace: No Gait Deviations General Gait Pattern Antalgic Factors Limiting Gait Function Factors Limiting Gait Function Decreased Activity Tolerance Decreased Strength Poor Balance PT-Balance Assessment Sitting Balance and Reactions Static Sitting Balance Ability Good Dynamic Sitting Balance Ability Good Standing Balance and Reactions Static Standing Balance Ability Fair Dynamic Standing Balance Ability Fair Device Used 4WW M5 PT-IP Objective Assessments Start: 05/10/19 13:45 Freq: NEEDED Status: Active Protocol: Document 05/10/19 12:10 AB (Rec: 05/10/19 13:57 AB [id number]) Orientation Orientation/Cognition Level of Alertness Alert Orientation Name Age Date Place Situation Language Function Ability No Deficits Noted Safety Awareness Understands Safety Issues Memory Description No Deficits Noted Gross Range of Motion Lower Extremity ROM Assessment Within Functional Limits Strength Lower Extremity Strength Assessment Left Impaired Hip 3+/5 Knee 3+/5 Coordination Assessment Gross Coordination Gross Coordination WNL Sensation Assessment Sensation Gross Sensation WNL Muscle Tone Muscle Tone WNL Yes M6 PT-IP Treatment Start: 05/10/19 13:45 Freq: NEEDED Status: Active Protocol: Document 05/10/19 12:10 AB (Rec: 05/10/19 13:57 AB [id number]) Physical Therapy Treatment Education Education Provided Precautions Post-Op Packet Safety M7 PT-IP Assessment and Plan Start: 05/10/19 13:45 Freq: NEEDED Status: Active Protocol: Document 05/10/19 12:10 AB (Rec: 05/10/19 13:57 AB [id number]) PT Summary Assessment and Plan Potential Rehabilitation Potential Good Status of Condition at Evaluation Stable Summary Impairments Pain ROM Strength Balance Bed Mobility Transfers Gait Activity Tolerance Assessment Summary pt doing well with mobility but requiring min to max A for bed mobility. caregiver training conducted and spouse was able to assist pt with bed mobility. pt may go home when medically stable. Goals Bed Mobility Goal Standby Assistance Transfer Goal Independent Four Wheeled Walker Gait Goal Independent Four Wheel Walker Gait Distance 300 Days to Meet Goals 3 Frequency of Treatment Frequency Of Treatment Once a Day Treatment Plan Physical Therapy Treatment Plan Bed Mobility Training Transfer Training Gait Training Therapeutic Exercise Balance Retraining Post Op Education Discharge Planning Hot or Cold Pack Neuromuscular Re-ed Coordination Retraining Manual Therapy Other Recommendations and Next Treatment bed mobility, ambulation Focus Recommendations To Nursing Amount of Assist Needed 1 Person Assist Discharge Recommendations PT Discharge Recommendations Home with Assistance
[2019-05-10] MEDS: LORATADINE 10 MG TABLET PO (12:15)
[2019-05-10] MEDS: POLYETHYLENE GLYCOL 3350 17 GM POWD.PACK PO (12:15)
--- NOTE | 2019-05-10 13:18 | PM.DS.1 ---
History of Present Illness Chief complaint: [id number] LAP COLON RESECTION Discharge Providers Date of admission: 05/07/19 10:36 Discharge Date: 05/10/19 Primary care physician: Lisbeth Machado DO Consults: 05/10/19 11:02 Consult to Physical Therapy Evaluate & Treat Comment: mobilize after surgery - d/c recs Physician Instructions: Evaluate and Treat Discharge provider: Carmelo Epstein Summary Discharge Diagnosis: un resectable colon polyp Hospital Course: 83 yo woman admitted after elective lap R hemicolectomy for unresectable R colon polyp had hand sewn anastamosis. Did well post op. tolerated regular diet. had bowel movements, voided, pain quite minimal. Path pending Status at Discharge Cognitive/behavioral status at discharge: oriented Functional status at discharge: independent ambulation Overall status at discharge: patient is progressing back to baseline Time Spent with Patient Less than 30 minutes Exam Vital Signs (past 8 hours): - 05/10/19 08:14 05/10/19 09:32 05/10/19 11:58 Temperature 97.6 F 97.4 F L Pulse Rate 70 61 57 L Respiratory Rate 13 18 18 Blood Pressure 152/53 H 143/80 H Pulse Oximetry 97 99 97 Oxygen Delivery Method Room Air Oxygen Flow Rate 0 Narrative Exam Narrative: well appering ambulating without difficulty with hm walker. cleared by pt Objective Labs Result Diagrams: 05/09/19 06:19 05/08/19 16:45 Discharge Plan Discharge Med Rec/Prescriptions Prescriptions: New acetaminophen 325 mg Tablet 650 mg PO Q6HR PRN (Reason: Pain, Mild (1-3)) Qty: 35 RF: 0 oxycodone 5 mg Tablet 5 mg PO Q4HR PRN (Reason: Pain, Moderate (4-6)) Qty: 8 RF: 0 Continued erythromycin 500 mg tablet See Rx Instructions PO TID Qty: 6 RF: 0 simvastatin 20 mg tablet 1 tab PO BEDTIME RF: 0 losartan 25 mg tablet 25 mg PO DAILY RF: 0 mupirocin 2 % ointment 1 applic Topical DIRECTED PRN (Reason: Outbreak) RF: 0 albuterol sulfate 90 mcg/actuation HFA aerosol inhaler 2 puff Inhalation Q4H PRN (Reason: Wheezing) RF: 0 atenolol 50 mg tablet 50 mg PO DAILY RF: 0 loratadine 10 mg tablet 1 tab PO DAILY PRN (Reason: Allergy Symptoms) RF: 0 albuterol sulfate 0.63 mg/3 mL Solution For Nebulization 0.63 mg INHALATION Q4H PRN (Reason: Shortness Of Breath Or Wheezing) RF: 0 fluticasone propion-salmeterol [Advair Diskus] 250-50 mcg/dose Blister With Device 1 inh INHALATION BID RF: 0 potassium chloride 10 mEq Tablet Extended Release 10 meq PO DAILY RF: 0 furosemide 20 mg Tablet 20 mg PO DAILY RF: 0 ibuprofen [Motrin IB] 200 mg Tablet 200 mg PO DAILY PRN (Reason: Pain) RF: 0 Xarelto 20 mg Tablet 20 mg PO QPM RF: 0 Follow up/Referrals: Lisbeth Machado DO [Primary Care Provider] - Carmelo Epstein MD [Physician] - (call for appt with dr REIS in about 10 days) Discharge Orders: Discharge (Order); Ordered 05/10/19 Ordered By: Carmelo Epstein Provider Discharge Instructions Diet: Diet as Tolerated Activity: no lifting over 15lbs for 6 weeks, ok to shower, no soaking in water ie bathing for 2 weeks Skin/Wound/Dressing Care Report to your healthcare provider any signs of infection, such as:: chills, fever and increased pain Visit Report/Discharge Packet Instructions: DI for Colectomy, DI for Laparoscopy, Oxycodone, [facility]: Wound Care Stand Alone Forms: Surgery Discharge Discharge Data Primary Care Provider: Lisbeth Machado Attending Provider: Pj Reis Admindy Date/Time: 05/07/19 10:36
--- NOTE | 2019-05-10 14:04 | PC.NURSE ---
Discharge: IV dc'd intact. Tolerated general diet without issue and was cleared by PT to d/c home. García was dc'd at 1030, patient voided 200 ml + 1 unmeasured void and has no post-void urgency. Abd incision and lap sites LUBNA and well-approximated with chicho (MD removed dressings earlier this morning before patient showered). Reviewed all medications and d/c instructions thoroughly. Instructed to call [facility] office Saturday to schedule follow up with Dr Stokes in approx 10 days. Instructed to call MD with s/sx infection or with any other concerns that may arise prior to follow up. Was taken by the cafeteria on the way out so she could by the [employer] formula to drink at home. All personal belongings sent with patient at discharge. Wheeled out to private vehicle accompanied by nursing staff.
== END 2019-05-10 14:10 | disposition home or self-care (01) | DRG 330 ==
LOC: AC 11:27 → ICU 12:51 → AC 17:33
PROVIDERS: Admitting Provider Specialist; PCP Family Medicine; Visit Provider Specialist
PROC: 0DTE0ZZ Resection of Large Intestine, Open Approach (ICD-10-PCS; principal; 2019-05-07 12:45)
DX: D12.2 Benign neoplasm of ascending colon (principal); I48.1 Persistent atrial fibrillation; I50.32 Chronic diastolic (congestive) heart failure; I11.0 Hypertensive heart disease with heart failure; I27.20 Pulmonary hypertension, unspecified; E66.01 Morbid (severe) obesity due to excess calories; I34.0 Nonrheumatic mitral (valve) insufficiency; E78.5 Hyperlipidemia, unspecified; J45.909 Unspecified asthma, uncomplicated; G47.33 Obstructive sleep apnea (adult) (pediatric); Z68.37 Body mass index [BMI] 37.0-37.9, adult
CPT/HCPCS: 36415; 44204; 80053; 82962; 83735; 85025; 88307; 94640; 94762; 97161; J0330; J1100; J1170; J1650; J2270; J2405; J2543; J3010

== ENCOUNTER 2019-05-19 13:50 | Emergency (ER) | payer MEDICARE, OTHER, SELFPAY ==
[2019-05-07 11:02] VITALS: BMI 37.3
[2019-05-19 14:06] VITALS: BP 171/68; PULSE 71; RESP 16; TEMP 36.8; O2SAT 94; BMI 40.4
--- NOTE | 2019-05-19 14:35 | ED_ITS ---
HPI - GI Bleed <Karey Stack, BUSINESS EMPLOYMENT SPECIALIST-BC - Last Filed: 05/19/19 18:17> General Chief complaint: GI Bleed Stated complaint: Bleeding rectum Time Seen by Provider: 05/19/19 14:05 Source: patient and family Mode of arrival: ambulatory Limitations: no limitations History of Present Illness HPI Narrative: The patient is an 83-year-old female nonsmoker with history of cardiac disease who presents with a chief complaint of rectal bleeding. She recently had for a large benign adenoma by Dr. Stokes at this facility on 05/07. She was discharged on 05/10. She states that since then she has had s ome black tarry stools. She states she has reported this to the surgeon's office. However today she noticed some bright red blood. She denies any fevers nausea vomiting or diarrhea. She states she is having a stool day at least. She is on MiraLax, but denies any Pepto or beats. She denies any chest pain or shortness of breath. She states she started her Xarelto for AFib proximally 2 days after her surgery. She does state that she has external and likely internal hemorrhoids as well. Related Data Home Medications Medication Instructions Recorded Confirmed albuterol sulfate 2 puff INHALATION Q4H PRN 04/16/18 05/19/19 atenolol 50 mg PO DAILY 04/16/18 05/19/19 loratadine 1 tab PO DAILY PRN 04/16/18 05/19/19 mupirocin 1 applic TOPICAL DIRECTED PRN 04/16/18 05/19/19 simvastatin 1 tab PO BEDTIME 04/16/18 05/19/19 albuterol sulfate 0.63 mg INHALATION Q4H PRN 12/28/18 05/19/19 fluticasone propion-salmeterol 1 inh INHALATION BID 12/28/18 05/19/19 [Advair Diskus] potassium chloride 10 meq PO DAILY 12/28/18 05/19/19 Xarelto 20 mg PO QPM 04/27/19 05/19/19 ferrous sulfate 324 mg PO Q OTHER DAY 05/19/19 05/19/19 furosemide 40 mg PO DAILY 05/19/19 05/19/19 Previous Rx's Medication Instructions Recorded acetaminophen 650 mg PO Q6HR PRN #35 tab 05/10/19 oxycodone 5 mg PO Q4HR PRN #8 tab 05/10/19 Allergies Allergy/AdvReac Type Severity Reaction Status Date / Time No Known Drug Allergies Allergy Verified 05/19/19 14:20 Review of Systems <LEORA Seth - Last Filed: 05/19/19 18:17> Review of Systems GENERAL: Denies chills, fatigue, malaise, fever, sweats. HEENT: Denies sinus pain, ear pain, sore throat, difficulty swallowing, dizziness. RESPIRATORY: Denies dyspnea, cough, wheezing, hemoptysis, sputum. CARDIOVASCULAR: Denies chest pain, palpitations, orthopnea, edema, GASTROINTESTINAL: See HPI : Denies dysuria, frequency, incontinence, hematuria, urinary retention. MUSCULOSKELETAL: denies weakness, joint pain, or bony pain SKIN: Denies rash, skin lesions, or other NEUROLOGIC: Denies weakness, headache, numbness, change in speech, confusion, seizures, incoordination. PSYCHIATRIC: No concerning psychosocial issues. 12 point review of systems is negative except for those stated above PFSH <LEORA Seth - Last Filed: 05/19/19 18:17> Medical History Atrial fibrillation (Acute) Hyperlipidemia (Acute) Hypertension (Acute) Diabetes (Acute) Arthritis (Acute) Asthma (Acute) Back pain (Acute) Edema (Acute) H/O: hysterectomy (Acute) Hearing impaired (Acute) Leg fracture, left (Acute) RLS (restless legs syndrome) (Acute) Skin cancer (Acute) Sleep apnea with use of continuous positive airway pressure (CPAP) (Acute) TIA (transient ischemic attack) (Acute ~2018) Surgical History History of surgery (Acute) History of tonsillectomy and adenoidectomy (Acute ~1939) Hx of bilateral cataract extraction (Acute) Hx of hemorrhoidectomy (Acute ~1968) Family History Mother Diabetes mellitus Myocardial infarction Father Diabetes mellitus Social History household members: spouse Smoking Status: Never smoker alcohol intake: current Family History Mother Diabetes mellitus Myocardial infarction Father Diabetes mellitus Social History household members: spouse Smoking Status: Never smoker alcohol intake: current Exam <LEORA Seth - Last Filed: 05/19/19 18:17> Narrative Exam Narrative: GENERAL: Morbidly obese chronically ill female lying on stretcher HEAD: Atraumatic. Normocephalic. No temporal or scalp tenderness. EYES: Pupils equal round and reactive. Extraocular motions intact. No scleral icterus. No injection or drainage. ENT: Nose without bleeding, purulent drainage or septal hematoma. Throat without erythema, tonsillar hypertrophy or exudate. Uvula midline. Airway patent. NECK: Trachea midline. No JVD or lymphadenopathy. Supple, nontender, no meningeal signs. CARDIOVASCULAR: Regular rate and rhythm RESPIRATORY: Clear to auscultation. Breath sounds equal bilaterally. No wheezes, rales, or rhonchi. No cough. No increased respiratory effort. No accessory muscle use. GASTROINTESTINAL: Abdomen obese, non-tender, nondistended. No hepato- splenomegaly, or palpable masses. No guarding. Active bowel sounds all 4 quadrants. EXTREMITIES: No clubbing, cyanosis, or edema. No joint tenderness, effusion, or edema noted. BACK: Nontender without deformity or crepitance. No flank tenderness. NEURO: AOx3. SKIN: No rash or erythema. Surgical chicho and incisions on the abdomen clean dry and intact. No spreading erythema or drainage noted. Initial Vital Signs Initial Vital Signs: Vital Signs Temperature 98.2 F 05/19/19 14:06 Pulse Rate 71 05/19/19 14:06 Respiratory Rate 16 05/19/19 14:06 Blood Pressure 171/68 H 05/19/19 14:06 Pulse Oximetry 94 05/19/19 14:06 <Bree Almeida MD - Last Filed: 05/19/19 19:11> Initial Vital Signs Initial Vital Signs: Vital Signs Temperature 98.2 F 05/19/19 14:06 Pulse Rate 71 05/19/19 14:06 Respiratory Rate 16 05/19/19 14:06 Blood Pressure 171/68 H 05/19/19 14:06 Pulse Oximetry 94 05/19/19 14:06 Procedures <LEORA Seth - Last Filed: 05/19/19 18:17> Stool Hemoccult Procedural Steps Taken: stool placed in appropriate test area, developer placed on stool and control areas and controls appropriately positive and negative Hemoccult result: positive Course <LEORA Seth - Last Filed: 05/19/19 18:17> Orders Ordered: ED Orders 05/19/19 14:53 Complete Blood Count AUTO DIFF Stat Comprehensive Metabolic Panel Stat Lactate (Lactic Acid) Stat Procalcitonin Stat Type and Screen Stat Vital Signs - 8 hr 05/19/19 14:06 05/19/19 15:08 05/19/19 16:30 Temperature 98.2 F Pulse Rate 71 57 L Respiratory Rate 16 16 Blood Pressure 171/68 H Blood Pressure [Right Arm] 139/40 L 145/47 H Pulse Oximetry 94 93 05/19/19 17:30 05/19/19 18:01 Temperature 98.4 F Pulse Rate 65 88 Respiratory Rate 15 16 Blood Pressure 124/62 Blood Pressure [Right Arm] 124/42 L Pulse Oximetry 95 97 <Bree Almeida MD - Last Filed: 05/19/19 19:11> Orders Ordered: ED Orders 05/19/19 14:53 Complete Blood Count AUTO DIFF Stat Comprehensive Metabolic Panel Stat Lactate (Lactic Acid) Stat Procalcitonin Stat Type and Screen Stat Vital Signs - 8 hr 05/19/19 14:06 05/19/19 15:08 05/19/19 16:30 Temperature 98.2 F Pulse Rate 71 57 L Respiratory Rate 16 16 Blood Pressure 171/68 H Blood Pressure [Right Arm] 139/40 L 145/47 H Pulse Oximetry 94 93 05/19/19 17:30 05/19/19 18:01 Temperature 98.4 F Pulse Rate 65 88 Respiratory Rate 15 16 Blood Pressure 124/62 Blood Pressure [Right Arm] 124/42 L Pulse Oximetry 95 97 MDM - GI Bleed <LEORA Seth - Last Filed: 05/19/19 18:17> Lab Data Result diagrams: 05/19/19 14:53 05/19/19 14:53 Lab Results 05/19/19 05/19/1919 Range/Units 14:53 14:53 14:53 WBC 12.0 H (4.5-11.0) X10^3/uL RBC 4.22 (4.0-5.2) X10^6/uL Hgb 11.1 L (12.0-16.0) g/dL Hct 34.0 L (36-46) % MCV 80.6 (80-100) fL MCH 26.2 (26-34) PG MCHC 32.5 (30-36) % RDW 22.1 H (11.6-14.8) % Plt Count 381 (150-400) X10^3/uL Neut % (Auto) 69.2 (50-75) % Lymph % (Auto) 19.3 L (25-40) % Freestone % (Auto) 9.1 (3-14) % Eos % (Auto) 1.9 L (2-4) % Baso % (Auto) 0.5 (0-2) % Neut # (Auto) 8300 H (4849-0781) /uL Lymph # (Auto) 2300 (9016-5053) /uL Freestone # (Auto) 1100 H (0-900) /uL Eos # (Auto) 200 (0-450) /uL Baso # (Auto) 100 (0-100) /uL RBC Morphology Not Reportable Polychromasia 1+ H Hypochromasia 1+ H Anisocytosis 2+ H Sodium 137 (137-145) mmol/L Potassium 4.0 (3.4-5.1) mmol/L Chloride 98 (98-107) mmol/L Carbon Dioxide 31 (22-32) mmol/L BUN 22 H (7-17) mg/dL Creatinine 0.80 (0.52-1.04) mg/dL Estimated GFR > 60.0 (>60) mL/min BUN/Creatinine Ratio 27.5 H (6-22) Glucose 113 H (80-110) mg/dL Lactate (0.7-2.1) mmol/L Calcium 9.4 (8.4-10.2) mg/dL Total Bilirubin 0.2 (0.2-1.3) mg/dL AST 28 (14-36) IU/L ALT 8 L (9-52) IU/L Alkaline Phosphatase 95 (38-126) U/L Total Protein 6.6 (6.3-8.2) g/dL Albumin 3.5 (3.5-5.0) g/dL Globulin 3.1 (1.7-4.1) g/dL Albumin/Globulin Ratio 1.1 (1.0-2.8) Procalcitonin < 0.05 (<0.5) ng/mL Blood Type Antibody Screen 05/19/19 05/19/19 Range/Units 14:53 14:53 WBC (4.5-11.0) X10^3/uL RBC (4.0-5.2) X10^6/uL Hgb (12.0-16.0) g/dL Hct (36-46) % MCV (80-100) fL MCH (26-34) PG MCHC (30-36) % RDW (11.6-14.8) % Plt Count (150-400) X10^3/uL Neut % (Auto) (50-75) % Lymph % (Auto) (25-40) % Freestone % (Auto) (3-14) % Eos % (Auto) (2-4) % Baso % (Auto) (0-2) % Neut # (Auto) (8963-5443) /uL Lymph # (Auto) (6135-4295) /uL Freestone # (Auto) (0-900) /uL Eos # (Auto) (0-450) /uL Baso # (Auto) (0-100) /uL RBC Morphology Polychromasia Hypochromasia Anisocytosis Sodium (137-145) mmol/L Potassium (3.4-5.1) mmol/L Chloride (98-107) mmol/L Carbon Dioxide (22-32) mmol/L BUN (7-17) mg/dL Creatinine (0.52-1.04) mg/dL Estimated GFR (>60) mL/min BUN/Creatinine Ratio (6-22) Glucose (80-110) mg/dL Lactate 1.3 (0.7-2.1) mmol/L Calcium (8.4-10.2) mg/dL Total Bilirubin (0.2-1.3) mg/dL AST (14-36) IU/L ALT (9-52) IU/L Alkaline Phosphatase (38-126) U/L Total Protein (6.3-8.2) g/dL Albumin (3.5-5.0) g/dL Globulin (1.7-4.1) g/dL Albumin/Globulin Ratio (1.0-2.8) Procalcitonin (<0.5) ng/mL Blood Type O Negative Antibody Screen Negative MDM Narrative Medical decision making narrative: The patient is an 83-year-old female who presents with a chief complaint of rectal bleeding. She had a right-sided colectomy done by Dr. Stokes and was discharged from this facility on 05/10. She is not tachycardic, her hemoglobin hematocrit are comparable to when she was discharged from this facility. She is normotensive. She is heme-positive on exam. I did speak with Dr. Hou regarding the patient whether or not they would like imaging for the patient. He states that this can be normal for this procedure, especially given the patient is on Xarelto. He recommended taking the patient off Xarelto for 5 days. I discussed with the patient that this increases her risk of stroke, but continuing the xarelto would increase her risk of bleeding. She is okay with stopping Xarelto for 5 days and knows that this will increase her risk of blood clots and stroke. We did discuss at length having a clear liquid diet, no ruffage and strict return precautions for dizziness lightheadedness or excessive bleeding. Discussed at length follow up in clinic. Patient has no questions or concerns states she will follow up with her surgeon, come back to the ER if needed and stop her Xarelto for 5 days. She is appreciative, hemodynamically stable throughout her stay in the ER and has no questions or concerns upon discharge. <Bree Almeida MD - Last Filed: 05/19/19 19:11> Lab Data Lab Results 05/19/19 05/19/19 05/19/19 Range/Units 14:53 14:53 14:53 WBC 12.0 H (4.5-11.0) X10^3/uL RBC 4.22 (4.0-5.2) X10^6/uL Hgb 11.1 L (12.0-16.0) g/dL Hct 34.0 L (36-46) % MCV 80.6 (80-100) fL MCH 26.2 (26-34) PG MCHC 32.5 (30-36) % RDW 22.1 H (11.6-14.8) % Plt Count 381 (150-400) X10^3/uL Neut % (Auto) 69.2 (50-75) % Lymph % (Auto) 19.3 L (25-40) % Freestone % (Auto) 9.1 (3-14) % Eos % (Auto) 1.9 L (2-4) % Baso % (Auto) 0.5 (0-2) % Neut # (Auto) 8300 H (5539-7477) /uL Lymph # (Auto) 2300 (0366-2965) /uL Freestone # (Auto) 1100 H (0-900) /uL Eos # (Auto) 200 (0-450) /uL Baso # (Auto) 100 (0-100) /uL RBC Morphology Not Reportable Polychromasia 1+ H Hypochromasia 1+ H Anisocytosis 2+ H Sodium 137 (137-145) mmol/L Potassium 4.0 (3.4-5.1) mmol/L Chloride 98 (98-107) mmol/L Carbon Dioxide 31 (22-32) mmol/L BUN 22 H (7-17) mg/dL Creatinine 0.80 (0.52-1.04) mg/dL Estimated GFR > 60.0 (>60) mL/min BUN/Creatinine Ratio 27.5 H (6-22) Glucose 113 H (80-110) mg/dL Lactate (0.7-2.1) mmol/L Calcium 9.4 (8.4-10.2) mg/dL Total Bilirubin 0.2 (0.2-1.3) mg/dL AST 28 (14-36) IU/L ALT 8 L (9-52) IU/L Alkaline Phosphatase 95 (38-126) U/L Total Protein 6.6 (6.3-8.2) g/dL Albumin 3.5 (3.5-5.0) g/dL Globulin 3.1 (1.7-4.1) g/dL Albumin/Globulin Ratio 1.1 (1.0-2.8) Procalcitonin < 0.05 (<0.5) ng/mL Blood Type Antibody Screen 07/02/19 07/02/19 Range/Units 14:53 14:53 WBC (4.5-11.0) X10^3/uL RBC (4.0-5.2) X10^6/uL Hgb (12.0-16.0) g/dL Hct (36-46) % MCV (80-100) fL MCH (26-34) PG MCHC (30-36) % RDW (11.6-14.8) % Plt Count (150-400) X10^3/uL Neut % (Auto) (50-75) % Lymph % (Auto) (25-40) % Freestone % (Auto) (3-14) % Eos % (Auto) (2-4) % Baso % (Auto) (0-2) % Neut # (Auto) (6692-8270) /uL Lymph # (Auto) (5036-9686) /uL Freestone # (Auto) (0-900) /uL Eos # (Auto) (0-450) /uL Baso # (Auto) (0-100) /uL RBC Morphology Polychromasia Hypochromasia Anisocytosis Sodium (137-145) mmol/L Potassium (3.4-5.1) mmol/L Chloride (98-107) mmol/L Carbon Dioxide (22-32) mmol/L BUN (7-17) mg/dL Creatinine (0.52-1.04) mg/dL Estimated GFR (>60) mL/min BUN/Creatinine Ratio (6-22) Glucose (80-110) mg/dL Lactate 1.3 (0.7-2.1) mmol/L Calcium (8.4-10.2) mg/dL Total Bilirubin (0.2-1.3) mg/dL AST (14-36) IU/L ALT (9-52) IU/L Alkaline Phosphatase (38-126) U/L Total Protein (6.3-8.2) g/dL Albumin (3.5-5.0) g/dL Globulin (1.7-4.1) g/dL Albumin/Globulin Ratio (1.0-2.8) Procalcitonin (<0.5) ng/mL Blood Type O Negative Antibody Screen Negative Discharge Plan Departure Patient Disposition: Home Clinical Impression: GI bleed Qualifiers: GI bleed type/associated pathology: unspecified gastrointestinal hemorrhage type Qualified Code(s): K92.2 - Gastrointestinal hemorrhage, unspecified Discharge Date/Time: 05/19/19 18:02 Interventions: ED Discharge Assessment Last Done: 05/19/19 18:01 Activity Restrictions/Additional Instructions: I spoke with regarding your bleeding. He suggest following a clear liquid diet with no ruffage. He would like GI rest if possible. Your vital signs and lab work is stable at this point. He suggests stopping your Xarelto for 5 days. This increases her risk of stroke and blood clot, but decreases the risk of bleeding. Please follow up with the surgery clinic. Please come back to the emergency department for acute concerns such as dizziness or lightheadedness etc. Prescriptions: No Action simvastatin 20 mg tablet 1 tab PO BEDTIME RF: 0 mupirocin 2 % ointment 1 applic Topical DIRECTED PRN (Reason: Outbreak) RF: 0 albuterol sulfate 90 mcg/actuation HFA aerosol inhaler 2 puff Inhalation Q4H PRN (Reason: Wheezing) RF: 0 atenolol 50 mg tablet 50 mg PO DAILY RF: 0 loratadine 10 mg tablet 1 tab PO DAILY PRN (Reason: Allergy Symptoms) RF: 0 albuterol sulfate 0.63 mg/3 mL Solution For Nebulization 0.63 mg INHALATION Q4H PRN (Reason: Shortness Of Breath Or Wheezing) RF: 0 fluticasone propion-salmeterol [Advair Diskus] 250-50 mcg/dose Blister With Device 1 inh INHALATION BID RF: 0 potassium chloride 10 mEq Tablet Extended Release 10 meq PO DAILY RF: 0 Xarelto 20 mg Tablet 20 mg PO QPM RF: 0 acetaminophen 325 mg Tablet 650 mg PO Q6HR PRN (Reason: Pain, Mild (1-3)) Qty: 35 RF: 0 oxycodone 5 mg Tablet 5 mg PO Q4HR PRN (Reason: Pain, Moderate (4-6)) Qty: 8 RF: 0 furosemide 40 mg tablet 40 mg PO DAILY RF: 0 ferrous sulfate 324 mg (65 mg iron) tablet,delayed release (DR/EC) 324 mg PO Q OTHER DAY RF: 0 Referrals: Lisbeth Machado DO [Primary Care Provider] -
[2019-05-19 15:08] VITALS: BP 139/40; PULSE 57; RESP 16; O2SAT 93
[2019-05-19 15:10] LABS: Basophils Absolute Auto 100 /uL (0-100); Basophils Percent Auto 0.5 % (0-2); Eosinophils Absolute Auto 200 /uL (0-450); Eosinophils Percent Auto 1.9 % (2-4); Hemoglobin 11.1 g/dL (12.0-16.0); Lymphocytes Absolute Auto 2300 /uL (1100-4500); Lymphocytes Percent Auto 19.3 % (25-40); Mean Corpuscular HGB Conc 32.5 % (30-36); Mean Corpuscular Hemoglobin 26.2 PG (26-34); Mean Corpuscular Volume 80.6 fL (80-100); Monocytes Absolute Auto 1100 /uL (0-900); Monocytes Percent Auto 9.1 % (3-14); Neutrophils Absolute Auto 8300 /uL (1500-7000); Neutrophils Percent Auto 69.2 % (50-75); Platelet Count 381 X10^3/uL (150-400); Red Blood Cell Count 4.22 X10^6/uL (4.0-5.2); Red Cell Distribution Width 22.1 % (11.6-14.8)
[2019-05-19 15:18] LABS: Alanine Aminotransferase 8 IU/L (9-52); Albumin 3.5 g/dL (3.5-5.0); Albumin Globulin Ratio 1.1 (1.0-2.8); Alkaline Phosphatase 95 U/L (38-126); Aspartate Aminotransferase 28 IU/L (14-36); BUN Creatinine Ratio 27.5 (6-22); Bilirubin Total 0.2 mg/dL (0.2-1.3); Blood Urea Nitrogen 22 mg/dL (7-17); Calcium 9.4 mg/dL (8.4-10.2); Carbon Dioxide 31 mmol/L (22-32); Chloride 98 mmol/L (98-107); Estimated Glomerular Filt Rate > 60.0 mL/min (>60); Globulin 3.1 g/dL (1.7-4.1); Glucose 113 mg/dL (80-110); HEMOLYSIS < 15 (0-50); Sodium 137 mmol/L (137-145); Total Protein 6.6 g/dL (6.3-8.2)
[2019-05-19 15:33] LABS: Procalcitonin < 0.05 ng/mL (<0.5)
[2019-05-19 15:35] LABS: Lactate (Lactic Acid) 1.3 mmol/L (0.7-2.1)
[2019-05-19 15:41] LABS: Add Manual Diff / Slide Review SLIDE REVIEW; Anisocytosis 2+; Hypochromasia 1+; Polychromasia 1+
[2019-05-19 16:30] VITALS: BP 145/47
[2019-05-19 17:30] VITALS: BP 124/42; PULSE 65; RESP 15; O2SAT 95
[2019-05-19 18:01] VITALS: BP 124/62; PULSE 88; RESP 16; TEMP 36.9; O2SAT 97
== END 2019-05-19 18:02 | disposition home or self-care (01) ==
PROVIDERS: Emergency Provider Nurse Practitioner Family; PCP Family Medicine
DX: K92.2 Gastrointestinal hemorrhage, unspecified (principal)
CPT/HCPCS: 36591; 80053; 83605; 84145; 85025; 86850; 86900; 86901; 99283

== ENCOUNTER 2019-05-20 09:19 | Observation (INO) | payer MEDICARE, OTHER, SELFPAY ==
[2019-05-07 11:02] VITALS: BMI 37.3
[2019-05-20 09:28] VITALS: BP 154/46; PULSE 78; RESP 19; TEMP 36.9; O2SAT 98
--- NOTE | 2019-05-20 09:33 | ED_ITS ---
HPI - GI Bleed General Chief complaint: GI Bleed Stated complaint: hemorrhage Time Seen by Provider: 05/20/19 09:23 Source: patient Mode of arrival: ambulatory Limitations: no limitations History of Present Illness HPI Narrative: Patient is an 83-year-old female who presents with bleeding from rectum. She was actually seen evaluated here yesterday for the same. She is postoperative colectomy for benign polyp removal on 05/07/2019. She was discharged home on 05/10/2019. Yesterday she had some rectal bleeding had blood work consulted with surgery thought to be normal after his procedure however today she had 2 large bloody bowel movements. She was previously on Xarelto, however after yesterday she stopped it. Related Data Home Medications Medication Instructions Recorded Confirmed albuterol sulfate 2 puff INHALATION Q4H PRN 04/16/18 05/20/19 atenolol 50 mg PO DAILY 04/16/18 05/20/19 loratadine 1 tab PO DAILY PRN 04/16/18 05/20/19 mupirocin 1 applic TOPICAL DIRECTED PRN 04/16/18 05/20/19 simvastatin 20 mg PO BEDTIME 04/16/18 05/20/19 albuterol sulfate 0.63 mg INHALATION Q4H PRN 12/28/18 05/20/19 fluticasone propion-salmeterol 1 inh INHALATION BID 12/28/18 05/20/19 [Advair Diskus] potassium chloride 10 meq PO DAILY 12/28/18 05/20/19 Xarelto 20 mg PO QPM 04/27/19 05/20/19 ferrous sulfate 324 mg PO Q OTHER DAY 05/19/19 05/20/19 furosemide 40 mg PO DAILY 05/19/19 05/20/19 Previous Rx's Medication Instructions Recorded acetaminophen 650 mg PO Q6HR PRN #35 tab 05/10/19 oxycodone 5 mg PO Q4HR PRN #8 tab 05/10/19 Allergies Allergy/AdvReac Type Severity Reaction Status Date / Time No Known Drug Allergies Allergy Verified 05/19/19 14:20 Review of Systems Review of Systems ROS Unobtainable: All systems reviewed & are unremarkable except as noted in HPI and below Constitutional Denies chills, Denies fever(s), Denies lethargy and Denies weakness Eyes Denies change in vision, Denies eye discharge, Denies irritation and Denies loss of vision ENT Ears, Nose, Mouth, and Throat: Denies change in voice, Denies neck pain and Denies sore throat Cardiovascular Denies chest pain, Denies syncope, Denies irregular heart rhythm, Denies lightheadedness, Denies palpitations, Denies dyspnea, Denies dyspnea on exertion and Denies orthopnea Respiratory Denies cough, Denies dyspnea, Denies dyspnea on exertion and Denies wheezing Gastrointestinal Gastrointestinal: Reports as per HPI, Denies abdominal pain, Reports hematochezia, Reports change in bowel habits, Denies cramping, Denies diarrhea, Denies nausea and Denies vomiting Genitourinary Denies hematuria, Denies flank pain, Denies urinary incontinence and Denies urinary urgency Musculoskeletal Denies neck pain Integumentary/Breasts Denies pruritus, Denies erythema, Denies rash and Denies wounds Neurologic Denies syncope, Denies loss of vision and Denies weakness Endocrine Denies palpitations Allergic/Immunologic Denies wheezing [facility] Medical History Atrial fibrillation (Acute) Hyperlipidemia (Acute) Hypertension (Acute) Diabetes (Acute) Arthritis (Acute) Asthma (Acute) Back pain (Acute) Edema (Acute) H/O: hysterectomy (Acute) Hearing impaired (Acute) Leg fracture, left (Acute) RLS (restless legs syndrome) (Acute) Skin cancer (Acute) Sleep apnea with use of continuous positive airway pressure (CPAP) (Acute) TIA (transient ischemic attack) (Acute ~2018) Surgical History History of surgery (Acute) History of tonsillectomy and adenoidectomy (Acute ~1939) Hx of bilateral cataract extraction (Acute) Hx of hemorrhoidectomy (Acute ~1968) Family History Mother Diabetes mellitus Myocardial infarction Father Diabetes mellitus Social History household members: spouse Smoking Status: Never smoker alcohol intake: current Family History Mother Diabetes mellitus Myocardial infarction Father Diabetes mellitus Social History household members: spouse Smoking Status: Never smoker alcohol intake: current Exam Initial Vital Signs Initial Vital Signs: Vital Signs Temperature 98.4 F 05/20/19 09:28 Pulse Rate 78 05/20/19 09:28 Respiratory Rate 19 05/20/19 09:28 Blood Pressure 154/46 H 05/20/19 09:28 Pulse Oximetry 98 05/20/19 09:28 GENERAL: Alert well-appearing elderly female and in no acute distress. HEENT: Head atraumatic,EOMI, pupils reactive, CARDIOVASCULAR: Regular rate and rhythm without murmurs, rubs or gallops. RESPIRATORY: Breath sounds equal bilaterally, no wheezes rales or rhonchi. ABDOMEN: Soft, incision sites clean and dry minimal erythema chicho intact no gross pus RECTAL: Depends filled with blood-brought from home EXTREMITIES: Normal range of motion, no clubbing or edema. Neurovascularly intact NEUROLOGICAL: Alert and oriented x4.Normal gait and speech. Cranial nerves II through XII grossly intact. SKIN: Warm, dry, no laceration, no petechiae, no rashes or lesions. Course Orders Ordered: ED Orders 05/20/19 09:34 Complete Blood Count AUTO DIFF Stat Comprehensive Metabolic Panel Stat Partial Thromboplastin Time Stat Prothrombin Time INR Stat Type and Screen Stat 05/20/19 10:00 Lactate (Lactic Acid) Stat Discontinued Medications Ondansetron HCl (Zofran) 4 mg IV NOW ONE Stop: 05/20/19 09:29 Last Admin: 05/20/19 09:52 Dose: Not Given Vital Signs - 8 hr 05/20/19 09:28 05/20/19 10:30 Temperature 98.4 F Pulse Rate 78 76 Respiratory Rate 19 14 Blood Pressure 154/46 H Blood Pressure [Left Arm] 112/40 L Pulse Oximetry 98 97 MDM - GI Bleed Lab Data Attestation: I reviewed the patient's lab results. Result diagrams: 05/20/19 09:34 05/20/19 09:34 Lab Results 05/20/19 05/20/19 05/20/19 Range/Units 09:34 09:34 09:34 WBC 11.1 H (4.5-11.0) X10^3/uL RBC 4.28 (4.0-5.2) X10^6/uL Hgb 11.2 L (12.0-16.0) g/dL Hct 34.8 L (36-46) % MCV 81.1 (80-100) fL MCH 26.2 (26-34) PG MCHC 32.3 (30-36) % RDW 21.8 H (11.6-14.8) % Plt Count 403 H (150-400) X10^3/uL Neut % (Auto) 64.4 (50-75) % Lymph % (Auto) 26.7 (25-40) % [place] % (Auto) 7.0 (3-14) % Eos % (Auto) 1.6 L (2-4) % Baso % (Auto) 0.3 (0-2) % Neut # (Auto) 7200 H (0649-1164) /uL Lymph # (Auto) 3000 (9639-3302) /uL [place] # (Auto) 800 (0-900) /uL Eos # (Auto) 200 (0-450) /uL Baso # (Auto) 0 (0-100) /uL PT 13.0 H (10.1-12.7) SECONDS INR 1.1 (0.9-1.3) APTT 32 D (26.4-36.2) SECONDS Sodium 138 (137-145) mmol/L Potassium 4.0 (3.4-5.1) mmol/L Chloride 98 (98-107) mmol/L Carbon Dioxide 30 (22-32) mmol/L BUN 23 H (7-17) mg/dL Creatinine 1.00 (0.52-1.04) mg/dL Estimated GFR 53.1 L (>60) mL/min BUN/Creatinine Ratio 23.0 H (6-22) Glucose 159 H (80-110) mg/dL Lactate (0.7-2.1) mmol/L Calcium 9.6 (8.4-10.2) mg/dL Total Bilirubin 0.4 (0.2-1.3) mg/dL AST 25 (14-36) IU/L ALT 14 (9-52) IU/L Alkaline Phosphatase 107 (38-126) U/L Total Protein 7.0 (6.3-8.2) g/dL Albumin 3.8 (3.5-5.0) g/dL Globulin 3.2 (1.7-4.1) g/dL Albumin/Globulin Ratio 1.2 (1.0-2.8) Blood Type Antibody Screen 05/20/19 05/20/19 Range/Units 09:34 10:00 WBC (4.5-11.0) X10^3/uL RBC (4.0-5.2) X10^6/uL Hgb (12.0-16.0) g/dL Hct (36-46) % MCV (80-100) fL MCH (26-34) PG MCHC (30-36) % RDW (11.6-14.8) % Plt Count (150-400) X10^3/uL Neut % (Auto) (50-75) % Lymph % (Auto) (25-40) % [place] % (Auto) (3-14) % Eos % (Auto) (2-4) % Baso % (Auto) (0-2) % Neut # (Auto) (7960-5132) /uL Lymph # (Auto) (3297-0269) /uL [place] # (Auto) (0-900) /uL Eos # (Auto) (0-450) /uL Baso # (Auto) (0-100) /uL PT (10.1-12.7) SECONDS INR (0.9-1.3) APTT (26.4-36.2) SECONDS Sodium (137-145) mmol/L Potassium (3.4-5.1) mmol/L Chloride (98-107) mmol/L Carbon Dioxide (22-32) mmol/L BUN (7-17) mg/dL Creatinine (0.52-1.04) mg/dL Estimated GFR (>60) mL/min BUN/Creatinine Ratio (6-22) Glucose (80-110) mg/dL Lactate 2.0 (0.7-2.1) mmol/L Calcium (8.4-10.2) mg/dL Total Bilirubin (0.2-1.3) mg/dL AST (14-36) IU/L ALT (9-52) IU/L Alkaline Phosphatase (38-126) U/L Total Protein (6.3-8.2) g/dL Albumin (3.5-5.0) g/dL Globulin (1.7-4.1) g/dL Albumin/Globulin Ratio (1.0-2.8) Blood Type O Negative Antibody Screen Negative MDM Narrative Medical decision making narrative: The patient overall hemodynamically stable no change in hemoglobin hematocrit. However patient had 2 large bloody bowel movements this morning seem to be progressively getting worse and was on Xarelto until yesterday. At this time needs to be admitted observation. Surgery , updated on patient's chest results. At this no need admit to observation and serial H&H. Discharge Plan Departure Patient Disposition: Admitted as Observation Clinical Impression: GI bleed Qualifiers: GI bleed type/associated pathology: unspecified gastrointestinal hemorrhage type Qualified Code(s): K92.2 - Gastrointestinal hemorrhage, unspecified Discharge Date/Time: 05/20/19 11:52 Interventions: ED Discharge Assessment Last Done: 05/20/19 11:41 Admit Date/Time: 05/20/19 11:16 Admit Provider: Jaron Vila
--- NOTE | 2019-05-20 09:40 | PC.NURSE ---
pt reports having recent bowel surgery, colonoscopy with polyp removal as well as laproscopy procedure. pt has incision on abdomen that appears to be healing well. chicho are dry and intact. pt noticed blood (maroon colored) in toilet and on toilet paper. pt c/o extreme weakness.
--- NOTE | 2019-05-20 09:47 | PC.NURSE ---
pt had procedure done on may 08. pt stayed in hospital for 3 days afterwards. pt noticed blood in stool yesterday, today amount of blood much more. pt denies pain and N/V. pt c/o weakness. pt seen here yesterday for the same. pt also stopped taking xerelto for the procedure and has not resumed.
[2019-05-20 09:52] LABS: INR 1.1 (0.9-1.3)
[2019-05-20 09:55] LABS: PTT Partial Thromboplastin Tim 32 SECONDS (26.4-36.2)
[2019-05-20 09:56] LABS: Alanine Aminotransferase 14 IU/L (9-52); Albumin 3.8 g/dL (3.5-5.0); Albumin Globulin Ratio 1.2 (1.0-2.8); Alkaline Phosphatase 107 U/L (38-126); Aspartate Aminotransferase 25 IU/L (14-36); Bilirubin Total 0.4 mg/dL (0.2-1.3); Blood Urea Nitrogen 23 mg/dL (7-17); Calcium 9.6 mg/dL (8.4-10.2); Carbon Dioxide 30 mmol/L (22-32); Chloride 98 mmol/L (98-107); Estimated Glomerular Filt Rate 53.1 mL/min (>60); Globulin 3.2 g/dL (1.7-4.1); Glucose 159 mg/dL (80-110); HEMOLYSIS < 15 (0-50); Sodium 138 mmol/L (137-145)
[2019-05-20 10:30] VITALS: BP 112/40; PULSE 76; RESP 14; O2SAT 97
[2019-05-20 10:47] LABS: Add Manual Diff / Slide Review NO; Basophils Absolute Auto 0 /uL (0-100); Basophils Percent Auto 0.3 % (0-2); Eosinophils Absolute Auto 200 /uL (0-450); Eosinophils Percent Auto 1.6 % (2-4); Hematocrit 34.8 % (36-46); Hemoglobin 11.2 g/dL (12.0-16.0); Lymphocytes Absolute Auto 3000 /uL (1100-4500); Lymphocytes Percent Auto 26.7 % (25-40); Mean Corpuscular HGB Conc 32.3 % (30-36); Mean Corpuscular Hemoglobin 26.2 PG (26-34); Mean Corpuscular Volume 81.1 fL (80-100); Monocytes Absolute Auto 800 /uL (0-900); Neutrophils Absolute Auto 7200 /uL (1500-7000); Neutrophils Percent Auto 64.4 % (50-75); Platelet Count 403 X10^3/uL (150-400); Red Blood Cell Count 4.28 X10^6/uL (4.0-5.2); Red Cell Distribution Width 21.8 % (11.6-14.8); White Blood Cell Count 11.1 X10^3/uL (4.5-11.0)
[2019-05-20 11:50] VITALS: BP 109/74; PULSE 65; RESP 16; TEMP 36.3; O2SAT 100
[2019-05-20 12:14] LABS: Hypochromasia 1+; Polychromasia 1+
[2019-05-20 12:15] LABS: Anisocytosis 1+
[2019-05-20 12:53] VITALS: BMI 37.6
[2019-05-20] MEDS: SODIUM CHLORIDE 0.9% 1,000 ML 125 ML IV (13:09)
--- NOTE | 2019-05-20 14:02 | PM.HP.1 ---
History of Present Illness Date Patient Seen: 05/20/19 Time Patient Seen: 14:02 Chief complaint: hemorrhage Narrative: 83-year-old right female patient who had a laparoscopic right colectomy for a benign polyp last week. She has had intermittent rectal bleeding hematochezia for the last several days. She came to the emergency department yesterday with the same complaint and was very stable with a hemoglobin of 11.1. Patient has been on Xarelto. She takes this for atrial fibrillation. Yesterday she was told to stop the Xarelto in hopes that the bleeding would stop and to assume a clear liquid diet at that time. She did those things and comes back to the emergency department today with more hematochezia. She denies any abdominal pain. today's hemoglobin is 11.2. She is admitted for observation during this time of hematochezia. Patient History Medical History Atrial fibrillation (Acute) Hyperlipidemia (Acute) Hypertension (Acute) Diabetes (Acute) Arthritis (Acute) Asthma (Acute) Back pain (Acute) Edema (Acute) H/O: hysterectomy (Acute) Hearing impaired (Acute) Leg fracture, left (Acute) RLS (restless legs syndrome) (Acute) Skin cancer (Acute) Sleep apnea with use of continuous positive airway pressure (CPAP) (Acute) TIA (transient ischemic attack) (Acute ~2018) Surgical History History of surgery (Acute) History of tonsillectomy and adenoidectomy (Acute ~1939) Hx of bilateral cataract extraction (Acute) Hx of hemorrhoidectomy (Acute ~1968) Family History Mother Diabetes mellitus Myocardial infarction Father Diabetes mellitus Social History household members: spouse Smoking Status: Never smoker alcohol intake: current Family & Social History Family History Mother Diabetes mellitus Myocardial infarction Father Diabetes mellitus Social History: household members spouse Prior Living Arrangements House Safety & Behavioral: Feels Safe in Current Yes Environment Been Physically Hurt or No Threatened By a Person Suicidal Ideation Description None Tobacco & Substance use: Smoking Status Never smoker alcohol intake current alcohol intake frequency holiday/special occasion Substance Use Type does not use Meds Home Medications Medication Instructions Recorded Confirmed Type albuterol sulfate 2 puff INHALATION Q4H PRN 04/16/18 05/20/19 History atenolol 50 mg PO DAILY 04/16/18 05/20/19 History loratadine 1 tab PO DAILY PRN 04/16/18 05/20/19 History mupirocin 1 applic TOPICAL DIRECTED PRN 04/16/18 05/20/19 History simvastatin 20 mg PO BEDTIME 04/16/18 05/20/19 History albuterol sulfate 0.63 mg INHALATION Q4H PRN 12/28/18 05/20/19 History fluticasone propion-salmeterol 1 inh INHALATION BID 12/28/18 05/20/19 History [Advair Diskus] potassium chloride 10 meq PO DAILY 12/28/18 05/20/19 History Xarelto 20 mg PO QPM 04/27/19 05/20/19 History acetaminophen 650 mg PO Q6HR PRN #35 tab 05/10/19 05/20/19 Rx oxycodone 5 mg PO Q4HR PRN #8 tab 05/10/19 05/20/19 Rx ferrous sulfate 324 mg PO Q OTHER DAY 05/19/19 05/20/19 History furosemide 40 mg PO DAILY 05/19/19 05/20/19 History Allergies Allergy/AdvReac Type Severity Reaction Status Date / Time No Known Drug Allergies Allergy Verified 05/19/19 14:20 Exam Vital Signs (past 8 hours): - 05/20/19 09:28 05/20/19 10:30 05/20/19 11:50 Temperature 98.4 F 97.4 F L Pulse Rate 78 76 65 Respiratory Rate 19 14 16 Blood Pressure 154/46 H 109/74 Blood Pressure [Left Arm] 112/40 L Pulse Oximetry 98 97 100 Oxygen Delivery Method Room Air Oxygen Flow Rate 0 Narrative Exam Narrative: Patient is alert and oriented denies abdominal pain. Ears nose and throat are normal Neck no adenopathy Lungs are clear with no rales or wheezes Heart regular rhythm no murmur Abdomen is nontender no masses are palpated and the incisions appear to be healing nicely. There are no signs of infections. Rectal done in the emergency department revealed no mass but there is bloody stool there. Objective Labs Result Diagrams: 05/20/19 09:34 05/20/19 09:34 Labs: Laboratory Results - last 24 hr 05/20/19 05/20/19 05/20/19 09:34 09:34 09:34 WBC 11.1 H RBC 4.28 Hgb 11.2 L Hct 34.8 L MCV 81.1 MCH 26.2 MCHC 32.3 RDW 21.8 H Plt Count 403 H Neut % (Auto) 64.4 Lymph % (Auto) 26.7 [place] % (Auto) 7.0 Eos % (Auto) 1.6 L Baso % (Auto) 0.3 Neut # (Auto) 7200 H Lymph # (Auto) 3000 [place] # (Auto) 800 Eos # (Auto) 200 Baso # (Auto) 0 RBC Morphology Not Reportable Polychromasia 1+ H Hypochromasia 1+ H Anisocytosis 1+ H PT 13.0 H INR 1.1 APTT 32 D Sodium 138 Potassium 4.0 Chloride 98 Carbon Dioxide 30 BUN 23 H Creatinine 1.00 Estimated GFR 53.1 L BUN/Creatinine Ratio 23.0 H Glucose 159 H Lactate Calcium 9.6 Total Bilirubin 0.4 AST 25 ALT 14 Alkaline Phosphatase 107 Total Protein 7.0 Albumin 3.8 Globulin 3.2 Albumin/Globulin Ratio 1.2 Blood Type Antibody Screen 05/20/19 05/20/19 09:34 10:00 WBC RBC Hgb Hct MCV MCH MCHC RDW Plt Count Neut % (Auto) Lymph % (Auto) [place] % (Auto) Eos % (Auto) Baso % (Auto) Neut # (Auto) Lymph # (Auto) [place] # (Auto) Eos # (Auto) Baso # (Auto) RBC Morphology Polychromasia Hypochromasia Anisocytosis PT INR APTT Sodium Potassium Chloride Carbon Dioxide BUN Creatinine Estimated GFR BUN/Creatinine Ratio Glucose Lactate 2.0 Calcium Total Bilirubin AST ALT Alkaline Phosphatase Total Protein Albumin Globulin Albumin/Globulin Ratio Blood Type O Negative Antibody Screen Negative Assessment & Plan Assessment & Plan narrative: Patient has postoperative hematochezia probably anastomotic bleeding certainly contributed by taking Xarelto. Plan is to observe the patient's hemoglobin and any further bleeding conservatively. We have stopped the Xarelto. Will follow serial hemoglobin and hematocrits. Patient is on a clear liquid diet. Quality VTE Deep Vein Thrombosis/Pulmonary Embolism Present on Admission: No
--- NOTE | 2019-05-20 14:35 | DIET.PN ---
Dietary Progress Note Assessment: RD had pre-surgery consult w pt re: ERAS protocol Ensure Presurgery drink recc HT: 156.2cm WT: 91.9kg BMI: 37.7 Labs: stool sample + for blood Interventions: Recc ONS Ensure Enlive tid while on clears, adv to Ensure Surgery drink bid when diet order advances Monitoring/Evaluations: diet progression, I&Os
[2019-05-20 15:31] VITALS: BP 107/57; PULSE 63; RESP 18; TEMP 35.8; O2SAT 97
--- NOTE | 2019-05-20 17:33 | PC.NURSE ---
Evening Shift Note- Patient alert and oriented and able to make needs known to staff. No complaints of pain or discomfort. No complaints of N/V. Patient up to chair. Patient agrees to call for assistance. Safety measures in place. call clifford and phone within reach. will continue to monitor.
[2019-05-20 19:55] VITALS: BP 141/78; PULSE 50; RESP 18; TEMP 36.1; O2SAT 100
[2019-05-20 20:10] LABS: Hemoglobin 9.9 g/dL (12.0-16.0)
[2019-05-20] MEDS: SIMVASTATIN 20 MG TABLET PO (20:57)
[2019-05-20] MEDS: FLUTICASONE/SALMETEROL 250/50 14 PUFF DISKUS INH (20:57)
[2019-05-20 23:00] VITALS: BP 111/49; PULSE 78; RESP 18; TEMP 36.3; O2SAT 99
[2019-05-21] VITALS (8 sets, daily range): BP systolic 129–159; BP diastolic 44–75; PULSE 58–96; RESP 16–18; TEMP 36.3–36.7; O2SAT 95–100
--- NOTE | 2019-05-21 00:33 | PC.NURSE ---
Belt Repairer Note: 0015: Awake, states she is unable to sleep due to uncomfortable bed. Vital signs stable. Assisted up to bathroom, voided, passed large amt flatus. Assisted with uday care, and no stool or blood noted. Bed changed for her comfort. Assisted back to bed. IV in place in rt AC with NS infusing at 125cc/hr. Home CPAP on.
[2019-05-21] MEDS: FLUTICASONE/SALMETEROL 250/50 14 PUFF DISKUS INH ×2 (07:47→17:34)
[2019-05-21] MEDS: POTASSIUM CHLORIDE 10 MEQ TAB PO (08:36)
[2019-05-21] MEDS: LOSARTAN 25 MG TABLET PO (08:36)
[2019-05-21] MEDS: FUROSEMIDE 40 MG TABLET PO (08:36)
[2019-05-21] MEDS: ATENOLOL 50 MG TABLET PO (08:37)
--- NOTE | 2019-05-21 10:07 | PC.NURSE ---
Day shift: Per verbal order from Dr Machado all chicho removed from Pt's ABD. Pt tolerated well. No bleeding/discharge from surgical sites during removals. Call light in reach.
--- NOTE | 2019-05-21 10:24 | PC.NURSE ---
Day shift: Per MD Pt IV fluids at TKO (21ml/hr).
[2019-05-21] MEDS: SODIUM CHLORIDE 0.9% 1,000 ML 21 ML IV (10:31)
--- NOTE | 2019-05-21 10:42 | CM.DANOTE ---
Patient is an 83 year old female who was admitted on 05/20/19 for Hemorrhage. Pt has [facility] and [employer] for insurance and her PCP is Dr. Lisbeth Machado. EMR was reviewed. Per MD, pt currently observation and on clear liquids to confirm pt's bleeding has stopped before likely d/c home. Patient was recently discharged from [facility] on [facility]10[facility]19 after planned surgical procedure and was able to d/c home with spouse assist and no further needs. Pt confirmed that she is still mostly Independent with ADL's and mod I with ambulation and occassional use of FWW. Pt's spouse/DPOA Bang provides assist and transport when needed and pt anticipates d/c back home when medically stable and does not anticipate any SW needs. Pt states she is feeling much better and so far this morning has had very minimal bleeding. Plan: SW to follow closely to confirm that pt will be safe for d/c home with spouse assist when medically stable and any further identified discharge planning needs. DAISY Arita Discharge Planning/Care Management CM Discharge Assessment Start: 05/21/19 10:40 Freq: Status: Active Protocol: Document 05/21/19 10:40 BF (Rec: 05/21/19 10:42 BF [id number]) Discharge Planning Assessment Assigned Purchasing Manager/Sales DAISY Banegas DPOA/Assigned Designee Name spouse Bang Contact Information [phone] Advance Directives? Yes Advance Directives on File No History Provided By Patient Significant Other Medical Record Has Patient been admitted in last 30 Yes days? Comment Recent d/c home on 05/10/19 with spouse Prior Living Arrangements House Household Members spouse Type of transporation used prior to Relies on Others admit Independent with ADL's Yes Is patient alert and oriented? Yes Needs Assistance With Home Chores / Shopping Caregiver for Another No DME Already Rented / Owned Elevated Toilet Seat FWW / Walker Comment Pending labs, but likely home with spouse when stable Barriers to Discharge No Discharge Plan Home Transportation Arrangement Likely spouse or adult Dtr can provide transport home at d/c . Referrals Initiated None needed Whiteboard Updated in Patient Room with Yes name and ext. # of Purchasing Manager/Sales Review Status In Process Please Provide Date Initial DC 05/21/19 Assessment Was Performed Next Review Type Continued Stay Review
--- NOTE | 2019-05-21 10:54 | P.PN_ITS ---
Subjective Date Patient Seen: 05/21/19 Time Patient Seen: 10:49 Interval history: Feeling well this morning, 1 episode of lightheadedness when 1st got up today now resolved Seated in chair feels quite comfortable, no pain whatsoever Last bowel movement was this morning has gone from significant blood with clots to some moderate coffee ground Hematocrit yesterday was 34-34-31 Exam Vital Signs (past 8 hours): - 05/21/19 05:00 05/21/19 07:48 05/21/19 08:00 Temperature 97.7 F 98.0 F Pulse Rate 95 H 96 H 87 Respiratory Rate 16 18 16 Blood Pressure 139/44 L 159/53 H Pulse Oximetry 95 98 98 Fraction of Inspired Oxygen 21 Oxygen Delivery Method Room Air Oxygen Flow Rate 0 Narrative Exam Narrative: Looks quite well, thinking clearly Breathing comfortably on room Irregular heart rate Abdomen soft nontender nondistended Cade still in place -will remove Periphery warm well perfused Objective Labs Result Diagrams: 05/20/19 19:57 05/20/19 09:34 Labs: Laboratory Results - last 24 hr 05/20/19 05/20/19 09:34 19:57 WBC 11.1 H RBC 4.28 Hgb 11.2 L 9.9 L Hct 34.8 L 31.0 L MCV 81.1 MCH 26.2 MCHC 32.3 RDW 21.8 H Plt Count 403 H Neut % (Auto) 64.4 Lymph % (Auto) 26.7 [place] % (Auto) 7.0 Eos % (Auto) 1.6 L Baso % (Auto) 0.3 Neut # (Auto) 7200 H Lymph # (Auto) 3000 [place] # (Auto) 800 Eos # (Auto) 200 Baso # (Auto) 0 RBC Morphology Not Reportable Polychromasia 1+ H Hypochromasia 1+ H Anisocytosis 1+ H Assessment & Plan Assessment & Plan narrative: 83-year-old female hospital day 2, postoperative day 14 s/p lap R colectomy for large unresectable polyp. Hand-sewn anastomosis. Was restarted on rivaroxaban shortly after her surgery. She presented with what appears to be an anastomotic bleed in the setting of therapeutic anticoagulation for atrial fibrillation. With cessation of her anticoagulant her bleeding has slowed significantly. Expected to stop altogether as she gets further out from her last dose. Plan: Continue to hold anticoagulation Will follow up morning hematocrit Patient will be able to discharge once hematocrit stable and bowel movements no longer with blood in them This may be later today or tomorrow She continues on the remainder of her home medications for heart failure [place] removed Clear liquid diet until bleeding clearly resolved Okay to ambulate Quality VTE Deep Vein Thrombosis/Pulmonary Embolism Present on Admission: No
[2019-05-21 13:08] LABS: Hematocrit 31.6 % (36-46)
[2019-05-21] MEDS: SIMVASTATIN 20 MG TABLET PO (21:46)
[2019-05-22 06:39] VITALS: BP 129/74; PULSE 84; RESP 18; TEMP 36.1; O2SAT 98
--- NOTE | 2019-05-22 06:51 | PC.NURSE ---
Patient has been anuric this shift, and no bowel movements. She states she does not have to go at this time, but will soon.
[2019-05-22 09:00] VITALS: BP 143/54; PULSE 61; RESP 18; TEMP 36.3; O2SAT 99
[2019-05-22] MEDS: FLUTICASONE/SALMETEROL 250/50 14 PUFF DISKUS INH (09:43)
[2019-05-22] MEDS: POTASSIUM CHLORIDE 10 MEQ TAB PO (09:59)
[2019-05-22] MEDS: ATENOLOL 50 MG TABLET PO (09:59)
[2019-05-22] MEDS: LOSARTAN 25 MG TABLET PO (10:00)
[2019-05-22] MEDS: FUROSEMIDE 40 MG TABLET PO (10:00)
[2019-05-22 10:14] VITALS: PULSE 90; RESP 16
--- NOTE | 2019-05-22 11:10 | P.DS_ITS ---
History of Present Illness Date Patient Seen: 05/22/19 Time Patient Seen: 11:05 Chief complaint: hemorrhage Narrative: 83-year-old woman presented nearly 2 weeks status post right hemicolectomy for unresectable polyp with hand-sewn anastomosis with lower GI bleed -on therapeutic anticoagulation with rivaroxaban. She was hemodynamically normal. She was assumed to have an anastomotic bleed on anticoagulation. With cessation of her anticoagulant and bowel rest her bleeding spontaneously resolved. She did not undergo colonoscopy but had had a normal 1 previous -with the exception of her unresectable right colon polyp. At the time of discharge was feeling well, tolerating a diet, ambulating without difficulty. She was having normal brown stools without blood or coffee-ground material. Furthermore her hematocrit had been stable at 31. Plan to hold anticoagulation for additional week upon discharge and then resume Discharge Providers Date of admission: 05/20/19 11:16 Discharge Date: 05/22/19 Primary care physician: Lisbeth Machado DO Discharge provider: Carmelo Epstein Summary Discharge Diagnosis: 1) anastamotic bleed on anticoagulation 2) afib 3) heart failure Hospital Course: as above Status at Discharge Cognitive/behavioral status at discharge: oriented Functional status at discharge: independent ambulation Overall status at discharge: patient is back to baseline Time Spent with Patient Less than 30 minutes Exam Vital Signs (past 8 hours): - 05/22/19 06:39 05/22/19 09:00 05/22/19 10:14 Temperature 97.0 F L 97.4 F L Pulse Rate 84 61 90 Respiratory Rate 18 18 16 Blood Pressure 129/74 143/54 H Pulse Oximetry 98 99 Fraction of Inspired Oxygen 21 Oxygen Delivery Method Room Air Oxygen Flow Rate 0 Narrative Exam Narrative: Well-appearing woman in no acute distress Breathing comfortably on room Abdomen soft nontender nondistended wounds clean dry and intact healing well I personally inspected patient stool this morning -no blood, no coffee-ground ma terial, no clots Objective Labs Result Diagrams: 05/21/19 12:55 05/20/19 09:34 Labs: Laboratory Results - last 24 hr 05/21/19 12:55 Hct 31.6 L Discharge Plan Discharge Plan Patient Disposition: Home Discharge Med Rec/Prescriptions Prescriptions: Continued losartan 25 mg tablet 25 mg PO DAILY RF: 0 simvastatin 20 mg tablet 20 mg PO BEDTIME RF: 0 mupirocin 2 % ointment 1 applic Topical DIRECTED PRN (Reason: Outbreak) RF: 0 albuterol sulfate 90 mcg/actuation HFA aerosol inhaler 2 puff Inhalation Q4H PRN (Reason: Wheezing) RF: 0 atenolol 50 mg tablet 50 mg PO DAILY RF: 0 loratadine 10 mg tablet 1 tab PO DAILY PRN (Reason: Allergy Symptoms) RF: 0 albuterol sulfate 0.63 mg/3 mL Solution For Nebulization 0.63 mg INHALATION Q4H PRN (Reason: Shortness Of Breath Or Wheezing) RF: 0 fluticasone propion-salmeterol [Advair Diskus] 250-50 mcg/dose Blister With Device 1 inh INHALATION BID RF: 0 potassium chloride 10 mEq Tablet Extended Release 10 meq PO DAILY RF: 0 acetaminophen 325 mg Tablet 650 mg PO Q6HR PRN (Reason: Pain, Mild (1-3)) Qty: 35 RF: 0 oxycodone 5 mg Tablet 5 mg PO Q4HR PRN (Reason: Pain, Moderate (4-6)) Qty: 8 RF: 0 furosemide 40 mg tablet 40 mg PO DAILY RF: 0 ferrous sulfate 324 mg (65 mg iron) tablet,delayed release (DR/EC) 324 mg PO Q OTHER DAY RF: 0 Discontinued Xarelto 20 mg Tablet 20 mg PO QPM RF: 0 Follow up/Referrals: Lisbeth Machado DO [Primary Care Provider] - Provider Discharge Instructions Activity: No lifting over 15lbs until 6 weeks after your surgery, everything else is OK Other treatments: Restart your blood thinner on 05/29/19, not before then Skin/Wound/Dressing Care Report to your healthcare provider any signs of infection, such as:: chills, fever and increased pain Visit Report/Discharge Packet Instructions: Atrial Fibrillation, DI for Atrial Fibrillation, Gastrointestinal Bleeding Discharge Data Primary Care Provider: Lisbeth Machado Attending Provider: Jaron Vila Admit Date/Time: 05/20/19 11:16 Quality VTE Deep Vein Thrombosis/Pulmonary Embolism Present on Admission: No
--- NOTE | 2019-05-22 11:29 | CM.DPC ---
DCP Discharge Home Per Surgeon, pt medically stable to d/c home with spouse today and no identified barriers to discharge. Per RN, pt agreeable and glad to be discharging home today and feeling better with no further bleeding. Plan: Patient to d/c home via spouse POV today and no SW needs at this time. DAISY Arita
--- NOTE | 2019-05-22 11:59 | PC.NURSE ---
Day shift: Pt left unit via WC with JOSE Baires to private car driven by spouse. Paperwork signed and all questions answered. No new MD meds. Pt has all personal belongings. LEft unit at approx 1215.
--- NOTE | 2019-05-29 09:22 | PC.NURSE ---
late entry: Sodium chloride 0.9% stopped 05/22 800
== END 2019-05-22 12:18 | disposition home or self-care (01) ==
LOC: ED 11:02 → AC 11:17
PROVIDERS: Surgery; Admitting Provider Surgery; Emergency Provider Emergency Medicine; PCP Family Medicine; Visit Provider Surgery
DX: K92.2 Gastrointestinal hemorrhage, unspecified (principal); Z79.01 Long term (current) use of anticoagulants; I48.91 Unspecified atrial fibrillation; I50.9 Heart failure, unspecified
CPT/HCPCS: 36415; 36591; 80053; 83605; 85014; 85018; 85025; 85610; 85730; 86850; 86900; 86901; 94640; 94760; 96360; 96361; 99283; G0378

== ENCOUNTER 2019-12-12 12:03 | Emergency (ER) | payer MEDICARE, OTHER, SELFPAY ==
[2019-12-12 13:51] VITALS: BP 133/80; PULSE 80; RESP 13; TEMP 36.1; O2SAT 98
--- NOTE | 2019-12-12 13:59 | DI.RAD.S_ITS ---
PROCEDURE: XR CERVICAL SPINE 2V OR 3V INDICATIONS: neck pain , no trauma TECHNIQUE: 3 view(s) of the cervical spine were acquired. COMPARISON: None. FINDINGS: Bones: On the lateral view, the cervicothoracic junction is adequately visualized and the alignment through this region is within normal limits. The vertebral body heights and prevertebral soft tissues are within normal limits throughout the cervical spine without evidence to suggest acute compression fracture. The bone mineralization is within normal limits. Moderate multilevel degenerative changes of the cervical spine are present there is a disc height loss, endplate sclerosis, and facet arthrosis. These findings are within normal limits for the patient's age. Degenerative changes of the imaged upper thoracic spine demonstrate anterior flowing disc osteophyte complexes, which may represent diffuse idiopathic skeletal hyperostosis, in the appropriate clinical setting. Soft tissues: No prevertebral soft tissue swelling. There appear to be carotid artery atherosclerotic calcifications. The imaged overlying soft tissues of the neck are within normal limits. IMPRESSION: Moderate degenerative changes of the cervical spine without an acute fracture evident. Dictated by: Khanh Beauchamp M.D. on 12/12/2019 at 13:28 Approved by: Khanh Beauchamp M.D. on 12/12/2019 at 13:30
[2019-12-12] MEDS: CYCLOBENZAPRINE 10 MG TABLET PO (14:13)
[2019-12-12] MEDS: LIDOCAINE PATCH 1 EACH ADH..PATCH TOP (14:13)
[2019-12-12 15:52] VITALS: BP 149/70; PULSE 80; RESP 18; O2SAT 96
--- NOTE | 2019-12-12 17:28 | ED.NECK ---
HPI - Neck Pain/Injury <Karey Stack, FOOD SAFETY SCIENTIST-BC - Last Filed: 12/12/19 20:14> General Chief Complaint: Neck Pain/Injury Stated Complaint: head/ neck pain cant move head Time Seen by Provider: 12/12/19 13:51 Source: patient and family Mode of arrival: Wheelchair Limitations: no limitations History of Present Illness HPI Narrative: The patient is an 84-year-old female nonsmoker with history of GI did later presents with a chief complaint neck pain. She states she had a stiff neck when she woke up this morning as she thinks she slept wrong. Her neck became progressively worse throughout the day. She denies any falls trauma or injury. She has not taken anything at home to feel better. She denies any incontinence of bowel, incontinence of bladder saddle anesthesia. She states that her pain is on both sides of her neck along her muscles were hooks into her head. Related Data Home Medications Medication Instructions Recorded Confirmed albuterol sulfate 2 puff INHALATION Q4H PRN 04/16/18 06/23/19 atenolol 50 mg PO DAILY 04/16/18 06/23/19 loratadine 1 tab PO DAILY PRN 04/16/18 06/23/19 mupirocin 1 applic TOPICAL DIRECTED PRN 04/16/18 06/23/19 simvastatin 20 mg PO BEDTIME 04/16/18 06/23/19 albuterol sulfate 0.63 mg INHALATION Q4H PRN 12/28/18 06/23/19 fluticasone propion-salmeterol 1 inh INHALATION BID 12/28/18 06/23/19 [Advair Diskus] potassium chloride 10 meq PO DAILY 12/28/18 06/23/19 ferrous sulfate 324 mg PO Q OTHER DAY 05/19/19 06/23/19 furosemide 40 mg PO DAILY 05/19/19 06/23/19 losartan 25 mg PO DAILY 05/20/19 06/23/19 Previous Rx's Medication Instructions Recorded acetaminophen 650 mg PO Q6HR PRN #35 tab 05/10/19 oxycodone 5 mg PO Q4HR PRN #8 tab 05/10/19 cyclobenzaprine 10 mg PO TID PRN #20 tab 12/12/19 diclofenac sodium [Voltaren] 2 gram TOP QID PRN 10 Days #100 12/12/19 gram lidocaine 1 patch TOP DAILY #15 each 12/12/19 Allergies Allergy/AdvReac Type Severity Reaction Status Date / Time No Known Drug Allergies Allergy Verified 06/23/19 13:46 Review of Systems <LEORA Seth - Last Filed: 12/12/19 20:14> Review of Systems Narrative: GENERAL: Denies chills, fatigue, malaise, fever, sweats. HEENT: Denies sinus pain, ear pain, sore throat, difficulty swallowing, dizziness. RESPIRATORY: Denies dyspnea, cough, wheezing, hemoptysis, sputum. CARDIOVASCULAR: Denies chest pain, palpitations, orthopnea, edema, GASTROINTESTINAL: Denies nausea, vomiting, abdominal pain, diarrhea, constipation, melena. : Denies dysuria, frequency, incontinence, hematuria, urinary retention. MUSCULOSKELETAL: See HPI SKIN: Denies rash, skin lesions, or other NEUROLOGIC: Denies weakness, headache, numbness, change in speech, confusion, seizures, incoordination. PSYCHIATRIC: No concerning psychosocial issues. 12 point review of systems is negative except for those stated above Patient History <LEORA Seth - Last Filed: 12/12/19 20:14> Medical History Arthritis (Acute) Asthma (Acute) Atrial fibrillation (Acute) Back pain (Acute) Diabetes (Acute) Edema (Acute) Hearing impaired (Acute) Hyperlipidemia (Acute) Hypertension (Acute) Leg fracture, left (Acute) RLS (restless legs syndrome) (Acute) Skin cancer (Acute) Sleep apnea with use of continuous positive airway pressure (CPAP) (Acute) TIA (transient ischemic attack) (Acute ~2017) Surgical History H/O: hysterectomy (Acute) History of surgery (Acute) History of tonsillectomy and adenoidectomy (Acute ~193) Hx of bilateral cataract extraction (Acute) Hx of hemorrhoidectomy (Acute ~1968) Family History Mother Diabetes mellitus Myocardial infarction Father Diabetes mellitus Social History household members: spouse Smoking Status: Never smoker alcohol intake: current Smoking Status: Never smoker alcohol intake frequency: holidays/special occasions only Substance Use Type: does not use Exam <LEORA Seth - Last Filed: 12/12/19 20:14> Narrative Exam Narrative: GENERAL: This is a well-nourished, well-developed patient, in no acute distress HEAD: Atraumatic. Normocephalic. No temporal or scalp tenderness. EYES: Pupils equal round and reactive. Extraocular motions intact. No scleral icterus. No injection or drainage. ENT: Nose without bleeding, purulent drainage or septal hematoma. Throat without erythema, tonsillar hypertrophy or exudate. Uvula midline. Airway patent. NECK: Trachea midline. No JVD or lymphadenopathy. Supple, nontender, no meningeal signs. No pain to palpation of midline C-spine. Pain to palpation bilateral sternocleidomastoid. Decreased neck range of motion all peña. CARDIOVASCULAR: Regular rate and rhythm RESPIRATORY: Clear to auscultation. Breath sounds equal bilaterally. No wheezes, rales, or rhonchi. No cough. No increased respiratory effort. No accessory muscle use. GASTROINTESTINAL: Abdomen soft, non-tender, nondistended. No hepato-splenomegaly, or palpable masses. No guarding. EXTREMITIES: No clubbing, cyanosis, or edema. No joint tenderness, effusion, or edema noted. BACK: Nontender without deformity or crepitance. No flank tenderness. NEURO: AOx3. SKIN: No rash or erythema on visible skin Initial Vital Signs Initial Vital Signs: Vital Signs Temperature 97 F L 12/12/19 13:51 Pulse Rate 80 12/12/19 13:51 Respiratory Rate 13 12/12/19 13:51 Blood Pressure 133/80 12/12/19 13:51 Pulse Oximetry 98 12/12/19 13:51 <Kirsty Lucas DO - Last Filed: 12/13/19 07:57> Initial Vital Signs Initial Vital Signs: Vital Signs Temperature 97 F L 12/12/19 13:51 Pulse Rate 80 12/12/19 13:51 Respiratory Rate 13 12/12/19 13:51 Blood Pressure 133/80 12/12/19 13:51 Pulse Oximetry 98 12/12/19 13:51 Course <LEORA Seth - Last Filed: 12/12/19 20:14> Orders Ordered: Discontinued Medications Cyclobenzaprine HCl (Flexeril) 10 mg PO NOW ONE Stop: 12/12/19 14:00 Last Admin: 12/12/19 14:13 Dose: 10 mg Documented by: FAWNLE Lidocaine (Lidoderm) 1 each TOP NOW ONE Stop: 12/12/19 14:01 Last Admin: 12/12/19 14:13 Dose: 1 each Documented by: MARIA LUISA Vital Signs Vital signs: Vital Signs - 8 hr 12/12/19 13:51 12/12/19 15:52 Temperature 97 F L Pulse Rate 80 80 Respiratory Rate 13 18 Blood Pressure 133/80 149/70 H Pulse Oximetry 98 96 <Kirsty Lucas DO - Last Filed: 12/13/19 07:57> Orders Ordered: Discontinued Medications Cyclobenzaprine HCl (Flexeril) 10 mg PO NOW ONE Stop: 12/12/19 14:00 Last Admin: 12/12/19 14:13 Dose: 10 mg Documented by: MARIA LUISA Lidocaine (Lidoderm) 1 each TOP NOW ONE Stop: 12/12/19 14:01 Last Admin: 12/12/19 14:13 Dose: 1 each Documented by: MARIA LUISA Vital Signs Vital signs: Vital Signs - 8 hr 12/12/19 13:51 12/12/19 15:52 Temperature 97 F L Pulse Rate 80 80 Respiratory Rate 13 18 Blood Pressure 133/80 149/70 H Pulse Oximetry 98 96 MDM - Neck Pain/Injury <LEORA Seth - Last Filed: 12/12/19 20:14> Imaging Data C-spine x-ray: Radiologist's Impression: [facility] [address] [place] [id number] XRay Report Signed Patient: Lizy Gutierrez JMR#: [id number] : 6Acct:[id number] Age/Sex: 84 / FDate of Service: 12/12/19 Loc: ED Accession Number: [id number] Procedure: XR cervical spine 2V or 3V Ordering Provider: Karey Stack PROCEDURE: XR CERVICAL SPINE 2V OR 3V INDICATIONS: neck pain , no trauma TECHNIQUE: 3 view(s) of the cervical spine were acquired. COMPARISON: None. FINDINGS: Bones: On the lateral view, the cervicothoracic junction is adequately visualized and the alignment through this region is within normal limits. The vertebral body heights and prevertebral soft tissues are within normal limits throughout the cervical spine without evidence to suggest acute compression fracture. The bone mineralization is within normal limits. Moderate multilevel degenerative changes of the cervical spine are present there is a disc height loss, endplate sclerosis, and facet arthrosis. These findings are within normal limits for the patient's age. Degenerative changes of the imaged upper thoracic spine demonstrate anterior flowing disc osteophyte complexes, which may represent diffuse idiopathic skeletal hyperostosis, in the appropriate clinical setting. Soft tissues: No prevertebral soft tissue swelling. There appear to be carotid artery atherosclerotic calcifications. The imaged overlying soft tissues of the neck are within normal limits. IMPRESSION: Moderate degenerative changes of the cervical spine without an acute fracture evident. Dictated by: Khanh Beauchamp M.D. on 12/12/2019 at 13:28 Approved by: Khanh Beauchamp M.D. on 12/12/2019 at 13:[address] [facility] Narrative Medical decision making narrative: The patient is an 84 year old female who presents with a chief complaint of neck pain that started after she slept wrong. Exam is consistent with muscle spasm. X-ray shows no acute findings. The patient denies any trauma. Feels better after the above-stated therapies. I a sent in prescriptions for her. She declined narcotics. Encouraged follow-up with her primary care provider. Patient has no questions or concerns upon discharge and states understanding of return precautions of any acute concerns as well as follow-up care Discharge Plan Departure Patient Disposition: Home Clinical Impression: Neck pain, Muscle spasm Discharge Date/Time: 12/12/19 15:52 Instructions: Neck Sprain, DI for Neck Sprain, DI for Neck Pain, DI for Muscle Spasm Activity Restrictions/Additional Instructions: Thank you for trusting us with your care today Your x-ray show no acute abnormalities. Please follow-up with primary care provider in the next few days Please continue use conservative measures Please come back to emergency department for any acute concerns such as heart attack stroke etcetera Be aware that the muscle relaxer can be sedating Prescriptions: New cyclobenzaprine 10 mg tablet 10 mg PO TID PRN (Reason: muscle spasm) Qty: 20 RF: 0 diclofenac sodium [Voltaren] 1 % gel 2 gram TOP QID PRN (Reason: pain) 10 Days Qty: 100 RF: 0 lidocaine 5 % adhesive patch,medicated 1 patch TOP DAILY Qty: 15 RF: 0 No Action losartan 25 mg tablet 25 mg PO DAILY RF: 0 simvastatin 20 mg tablet 20 mg PO BEDTIME RF: 0 mupirocin 2 % ointment 1 applic Topical DIRECTED PRN (Reason: Outbreak) RF: 0 albuterol sulfate 90 mcg/actuation HFA aerosol inhaler 2 puff Inhalation Q4H PRN (Reason: Wheezing) RF: 0 atenolol 50 mg tablet 50 mg PO DAILY RF: 0 loratadine 10 mg tablet 1 tab PO DAILY PRN (Reason: Allergy Symptoms) RF: 0 albuterol sulfate 0.63 mg/3 mL Solution For Nebulization 0.63 mg INHALATION Q4H PRN (Reason: Shortness Of Breath Or Wheezing) RF: 0 fluticasone propion-salmeterol [Advair Diskus] 250-50 mcg/dose Blister With Device 1 inh INHALATION BID RF: 0 potassium chloride 10 mEq Tablet Extended Release 10 meq PO DAILY RF: 0 acetaminophen 325 mg Tablet 650 mg PO Q6HR PRN (Reason: Pain, Mild (1-3)) Qty: 35 RF: 0 oxycodone 5 mg Tablet 5 mg PO Q4HR PRN (Reason: Pain, Moderate (4-6)) Qty: 8 RF: 0 furosemide 40 mg tablet 40 mg PO DAILY RF: 0 ferrous sulfate 324 mg (65 mg iron) tablet,delayed release (DR/EC) 324 mg PO Q OTHER DAY RF: 0 Referrals: [employer] [facility] [Provider Group]
== END 2019-12-12 15:52 | disposition home or self-care (01) ==
PROVIDERS: Emergency Provider Nurse Practitioner Family
DX: M54.2 Cervicalgia (principal); M62.838 Other muscle spasm
CPT/HCPCS: 72040; 99283

== ENCOUNTER 2024-01-26 12:50 | Emergency (ER) | payer MEDICARE, OTHER, SELFPAY ==
[2024-01-26 13:17] VITALS: BP 147/65; PULSE 61; RESP 16; TEMP 36.3; O2SAT 97; BMI 28.5
--- NOTE | 2024-01-26 15:06 | ED_ITS ---
HPI - Skin/Abscess/Foreign Bdy General Chief complaint: Skin/Abscess/Foreign Body Stated complaint: Constipation/Bleeding Hemorroids Time Seen by Provider: 01/26/24 14:53 Source: patient Mode of arrival: EMS History of Present Illness HPI narrative: Patient is an 88-year-old female. Not on anticoagulation. Here for evaluation of constipation, rectal bleeding and hemorrhoids. States that for the past several days/week she has been had issues with constipation. She initially stated that she has been taking Metamucil at home however it appears that maybe it could be MiraLax. She has had history of external hemorrhoids. She feels hemorrhoids. She has had to have them banded in the past. No vomiting. No urinary symptoms. No abdominal pain. Related Data Home Medications Medication Instructions Recorded Confirmed albuterol sulfate 90 mcg/actuation 2 puff inhalation Q4H PRN Wheezing 04/16/18 06/23/19 aerosol inhaler atenolol 50 mg tablet 50 mg PO DAILY 04/16/18 06/23/19 loratadine 10 mg tablet 1 tab PO DAILY PRN Allergy Symptoms 04/16/18 06/23/19 mupirocin 2 % topical ointment 1 applic topical DIRECTED PRN 04/16/18 06/23/19 Outbreak simvastatin 20 mg tablet 20 mg PO BEDTIME 04/16/18 06/23/19 albuterol sulfate 0.63 mg/3 mL 0.63 mg inhalation Q4H PRN 12/28/18 06/23/19 solution for nebulization Shortness Of Breath Or Wheezing fluticasone 250 mcg-salmeterol 50 1 inh inhalation BID 12/28/18 06/23/19 mcg/dose blistr powdr for inhalation (Advair Diskus) potassium chloride 10 mEq 10 meq PO DAILY 12/28/18 06/23/19 tablet,extended release ferrous sulfate 324 mg (65 mg 324 mg PO Q OTHER DAY 05/19/19 06/23/19 iron) tablet,delayed release furosemide 40 mg tablet 40 mg PO DAILY 05/19/19 06/23/19 losartan 25 mg tablet 25 mg PO DAILY 05/20/19 06/23/19 Previous Rx's Medication Instructions Recorded acetaminophen 325 mg tablet 650 mg (2 x 325 mg) PO Q6HR PRN 05/10/19 Pain, Mild (1-3) #35 tabs oxycodone 5 mg tablet 5 mg PO Q4HR PRN Pain, Moderate 05/10/19 (4-6) #8 tabs cyclobenzaprine 10 mg tablet 10 mg PO TID PRN muscle spasm #20 12/12/19 tabs lidocaine 5 % topical patch 1 patch topical DAILY #15 ea 12/12/19 Allergies Allergy/AdvReac Type Severity Reaction Status Date / Time No Known Drug Allergies Allergy Verified 06/23/19 13:46 Review of Systems Constitutional Constitutional: Reports system reviewed and no additional complaints, except as documented Gastrointestinal Gastrointestinal: Reports system reviewed and no additional complaints, except as documented Genitourinary Genitourinary: Reports system reviewed and no additional complaints, except as documented Integumentary/Breasts Skin/Breast: Reports system reviewed and no additional complaints, except as documented Hematologic/Lymphatic On Anticoagulants: No Patient History Medical History Asthma Back pain Arthritis Skin cancer Leg fracture, left Edema Sleep apnea with use of continuous positive airway pressure (CPAP) Hearing impaired RLS (restless legs syndrome) TIA (transient ischemic attack) (~2018) Atrial fibrillation Hyperlipidemia Hypertension Diabetes Surgical History Hx of hemorrhoidectomy (~1968) History of surgery History of tonsillectomy and adenoidectomy (~1939) H/O: hysterectomy Hx of bilateral cataract extraction Family History Mother Diabetes mellitus Myocardial infarction Father Diabetes mellitus Social History household members: spouse Smoking Status: Never smoker alcohol intake: current Smoking Status: Never smoker alcohol intake frequency: holidays/special occasions only Substance Use Type: does not use Exam Initial Vital Signs Initial Vital Signs: Vital Signs Temperature 97.4 F L 01/26/24 13:17 Pulse Rate 61 01/26/24 13:17 Respiratory Rate 16 01/26/24 13:17 Blood Pressure 147/65 H 01/26/24 13:17 Pulse Oximetry 97 01/26/24 13:17 Oxygen Delivery Method Room Air 01/26/24 13:17 Const General: cooperative, comfortable and No ill appearing HENMT Head: normal to inspection and normocephalic Resp Effort & Inspection: normal respiratory effort Cardio Rate: regular rate GI Inspection: normal to inspection and non-distended Palpation: soft Rectal Exam: hemorrhoids (Nonthrombosed external) Skin General: no rashes or lesions noted Neuro General: patient alert, patient awake and moves all extremities Course Orders Ordered: ED Orders 01/26/24 17:05 Basic Metabolic Panel Stat Complete Blood Count AUTO DIFF Stat Discontinued Medications Sodium Biphosphate/Sodium Phosphate (Fleets Enema) 1 each GA NOW ONE Stop: 01/26/24 15:08 Last Admin: 01/26/24 15:42 Dose: 1 each Documented By: DINAH Vital Signs Vital signs: Vital Signs - 8 hr 01/26/24 13:17 Temperature 97.4 F L Pulse Rate 61 Respiratory Rate 16 Blood Pressure 147/65 H Pulse Oximetry 97 Oxygen Delivery Method Room Air MDM - Skin/Abscess/Foreign Bdy Lab Data Attestation: I reviewed the patient's lab results. 01/26/24 17:05 01/26/24 17:05 Labs: Lab Results 01/26/24 Range/Units 17:05 WBC 9.3 (4.5-11.0) X10^3/uL RBC 4.57 (4.0-5.2) X10^6/uL Hgb 12.4 (12.0-16.0) g/dL Hct 37.8 (36-46) % MCV 82.6 (80-100) fL MCH 27.1 (26-34) PG MCHC 32.8 (30-36) % RDW 15.2 H (11.6-14.8) % Plt Count 278 (150-400) X10^3/uL Neut % (Auto) 69.5 (50-75) % Lymph % (Auto) 22.3 L (25-40) % [place] % (Auto) 7.7 (3-14) % Eos % (Auto) 0.2 L (2-4) % Baso % (Auto) 0.3 (0-2) % Neut # (Auto) 6500 (0198-1868) /uL Lymph # (Auto) 2100 (1194-8622) /uL [place] # (Auto) 700 (0-900) /uL Eos # (Auto) 0 (0-450) /uL Baso # (Auto) 0 (0-100) /uL Sodium 141 (137-145) mmol/L Potassium 4.3 (3.4-5.1) mmol/L Chloride 109 H (98-107) mmol/L Carbon Dioxide 26 (22-32) mmol/L BUN 25 H (7-17) mg/dL Creatinine 0.95 (0.52-1.04) mg/dL Estimated GFR 58 L (>60) mL/min BUN/Creatinine Ratio 26.3 H (6-22) Glucose 122 H (80-110) mg/dL Calcium 9.6 (8.4-10.2) mg/dL MDM Narrative Medical decision making narrative: Labs are unremarkable. Vital signs unremarkable. She received a enema here in the ER and did have a large bowel movement. States she feels much better. No active bleeding. She is nonthrombosed external hemorrhoids. Not anemic. No indication for blood transfusion. No indication for admission to the hospital. No indication for advanced radiologic studies. Will discharge patient home with instructions on a good bowel regimen. She was given return precautions and follow-up instructions. She expressed understanding and agreement. Discharge Plan Departure Patient Disposition: Home Clinical Impression: Constipation, External hemorrhoids Instructions: DI for Hemorrhoids, DI for Constipation Activity Restrictions/Additional Instructions: Be sure that you were taking all of your medications as directed. You are going to need to do some experimentation is to finding what bowel regimen works well for you. This can include things like fiber and stool softeners and laxatives. Contact your primary care doctor for follow-up. Return to the emergency department for new or worsening symptoms. Prescriptions: No Action losartan 25 mg tablet 25 mg PO DAILY simvastatin 20 mg tablet 20 mg PO BEDTIME mupirocin 2 % ointment 1 applic Topical DIRECTED PRN (Reason: Outbreak) albuterol sulfate 90 mcg/actuation HFA aerosol inhaler 2 puff Inhalation Q4H PRN (Reason: Wheezing) atenolol 50 mg tablet 50 mg PO DAILY loratadine 10 mg tablet 1 tab PO DAILY PRN (Reason: Allergy Symptoms) albuterol sulfate 0.63 mg/3 mL Solution For Nebulization 0.63 mg INHALATION Q4H PRN (Reason: Shortness Of Breath Or Wheezing) fluticasone propion-salmeterol [Advair Diskus] 250-50 mcg/dose Blister With Device 1 inh INHALATION BID potassium chloride 10 mEq Tablet Extended Release 10 meq PO DAILY acetaminophen 325 mg Tablet 650 mg PO Q6HR PRN (Reason: Pain, Mild (1-3)) Qty: 35 0RF oxycodone 5 mg Tablet 5 mg PO Q4HR PRN (Reason: Pain, Moderate (4-6)) Qty: 8 0RF furosemide 40 mg tablet 40 mg PO DAILY ferrous sulfate 324 mg (65 mg iron) tablet,delayed release (DR/EC) 324 mg PO Q OTHER DAY cyclobenzaprine 10 mg tablet 10 mg PO TID PRN (Reason: muscle spasm) Qty: 20 0RF lidocaine 5 % adhesive patch,medicated 1 patch TOP DAILY Qty: 15 0RF Rx Instructions: leave on most painful area for up to 12 hrs Stand Alone Forms: Patient Portal/API
[2024-01-26] MEDS: FLEETS ENEMA 1 EACH PR (15:42)
[2024-01-26 17:14] LABS: Add Manual Diff / Slide Review NO; Basophils Absolute Auto 0 /uL (0-100); Basophils Percent Auto 0.3 % (0-2); Eosinophils Absolute Auto 0 /uL (0-450); Eosinophils Percent Auto 0.2 % (2-4); Hematocrit 37.8 % (36-46); Hemoglobin 12.4 g/dL (12.0-16.0); Lymphocytes Absolute Auto 2100 /uL (1100-4500); Lymphocytes Percent Auto 22.3 % (25-40); Mean Corpuscular HGB Conc 32.8 % (30-36); Mean Corpuscular Hemoglobin 27.1 PG (26-34); Mean Corpuscular Volume 82.6 fL (80-100); Monocytes Absolute Auto 700 /uL (0-900); Monocytes Percent Auto 7.7 % (3-14); Neutrophils Absolute Auto 6500 /uL (1500-7000); Neutrophils Percent Auto 69.5 % (50-75); Platelet Count 278 X10^3/uL (150-400); Red Blood Cell Count 4.57 X10^6/uL (4.0-5.2); Red Cell Distribution Width 15.2 % (11.6-14.8); White Blood Cell Count 9.3 X10^3/uL (4.5-11.0)
[2024-01-26 17:25] LABS: BUN Creatinine Ratio 26.3 (6-22); Blood Urea Nitrogen 25 mg/dL (7-17); Calcium 9.6 mg/dL (8.4-10.2); Carbon Dioxide 26 mmol/L (22-32); Chloride 109 mmol/L (98-107); Estimated Glomerular Filt Rate 58 mL/min (>60); Glucose 122 mg/dL (80-110); HEMOLYSIS < 15 (0-50); Potassium 4.3 mmol/L (3.4-5.1); Sodium 141 mmol/L (137-145)
[2024-01-26 17:53] VITALS: BP 139/64; PULSE 60; RESP 16; O2SAT 98
== END 2024-01-26 17:47 | disposition home or self-care (01) ==
PROVIDERS: Emergency Provider Emergency Medicine
DX: K59.00 Constipation, unspecified (principal); K64.4 Residual hemorrhoidal skin tags
CPT/HCPCS: 80048; 85025; 99283; 99284

== ENCOUNTER → 2024-07-27 11:51 | Outpatient (CLI) | payer MEDICARE, OTHER, SELFPAY ==
--- NOTE | 2024-07-27 11:58 | EKG_ITS ---
[address] [address] Test Date: 2024-07-27 Pat Name: Lizy Gutierrez Department: [facility] Room: Gender: Female Identifier Horse: ELAINE : [id number] Requested By: Order Number: [id number] Reading MD: Sekou Ford Measurements Intervals Lindsay Rate: 52 P: RI: QRS: 49 QRSD: 80 T: 50 QT: 464 QTc: 431 Interpretive Statements Junctional rhythm with frequent premature ventricular complexes Septal infarct , age undetermined Electronically Signed On 07-27-2024 13:44:51 PDT by Sekou Ford
[2024-07-27 13:36] LABS: Add Manual Diff / Slide Review NO; Basophils Absolute Auto 0 /uL (0-100); Basophils Percent Auto 0.5 % (0-2); Eosinophils Absolute Auto 300 /uL (0-450); Eosinophils Percent Auto 3.9 % (2-4); Hematocrit 38.7 % (36-46); Hemoglobin 12.7 g/dL (12.0-16.0); Lymphocytes Absolute Auto 2000 /uL (1100-4500); Lymphocytes Percent Auto 28.1 % (25-40); Mean Corpuscular HGB Conc 32.8 % (30-36); Mean Corpuscular Hemoglobin 28.3 PG (26-34); Mean Corpuscular Volume 86.3 fL (80-100); Monocytes Absolute Auto 600 /uL (0-900); Monocytes Percent Auto 8.5 % (3-14); Neutrophils Absolute Auto 4300 /uL (1500-7000); Platelet Count 252 X10^3/uL (150-400); Red Blood Cell Count 4.48 X10^6/uL (4.0-5.2); Red Cell Distribution Width 14.7 % (11.6-14.8); White Blood Cell Count 7.2 X10^3/uL (4.5-11.0)
[2024-07-27 13:43] LABS: INR 1.4 (0.9-1.3); Prothrombin Time 15.9 SECONDS (9.4-12.5)
[2024-07-27 13:45] LABS: PTT Partial Thromboplastin Tim 44 SECONDS (25.1-36.5)
[2024-07-27 13:59] LABS: BUN Creatinine Ratio 42.7 (6-22); Blood Urea Nitrogen 50 mg/dL (7-17); Calcium 10.3 mg/dL (8.4-10.2); Carbon Dioxide 26 mmol/L (22-32); Chloride 105 mmol/L (98-107); Estimated Glomerular Filt Rate 45 mL/min (>60); Glucose 123 mg/dL (80-110); HEMOLYSIS < 15 (0-50); Potassium 4.6 mmol/L (3.4-5.1); Sodium 141 mmol/L (137-145)
== END ==
PROVIDERS: Referring Provider Orthopaedic Surgery; Visit Provider Orthopaedic Surgery
DX: Z01.818 Encounter for other preprocedural examination (principal); Z51.81 Encounter for therapeutic drug level monitoring; Z01.812 Encounter for preprocedural laboratory examination
CPT/HCPCS: 36415; 80048; 85025; 85610; 85730; 93005

== ENCOUNTER → 2024-08-09 11:42 | Outpatient (CLI) | payer MEDICARE, OTHER, SELFPAY ==
--- NOTE | 2024-08-09 11:46 | DI.CT.S_ITS ---
PROCEDURE: CT HIP RIGHT WITHOUT CON INDICATIONS: INTRAPELVIC PROTRUSION OF RT ACETABULUM/EVAL R HIP TECHNIQUE: Noncontrast 3 mm axial sections acquired through the bony pelvis. Additional 3 mm axial sections acquired through the symptomatic hip joint, with coronal and sagittal reformats. COMPARISON: [facility], CR, XR PELVIS WITH LATERAL HIP RIGHT, 07/22/2024, 14:01. FINDINGS: Image quality: Excellent. Bones: Pelvic ring is intact. No definite displaced fracture or dislocation . 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 Significant thinning of superior medial acetabular wall is seen with questionable focal area of full-thickness disruption series 6 image 26 and series 603, image 77. Extensive subchondral sclerosis and prominent marginal osteophyte formation is also noted. Moderate left hip joint osteoarthritic changes also seen. No evidence of avascular necrosis of femoral head. No ankylosis or erosion is seen in bilateral sacroiliac joints. Degenerate disc disease in visualized lower lumbar spine is also seen. No suspicious bony lesions. Soft tissues: There is no pelvic free fluid or free air. No abnormal bowel wall thickening. Bladder wall thickness is normal. No pelvic lymphadenopathy by size criteria. There is no pelvic or hip soft tissue mass or drainable fluid collection. No abnormal soft tissue calcifications. No significant hip joint effusion or calcified intra-articular loose bodies. IMPRESSION: 1. 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 Focal area of cortical disruption is suspected and as described above. 2. No displaced pelvic or hip fracture. Moderate left hip joint osteoarthritis. No evidence of avascular necrosis of femoral heads. 3. No significant joint effusion or calcified intra-articular loose bodies. No soft tissue mass or drainable fluid collection. Dictated by: Rufus Singleton M.D. on 08/09/2024 at 23:24 Approved by: Rufus Singleton M.D. on 08/09/2024 at 23:34
== END ==
LOC: CT 11:44
PROVIDERS: Referring Provider Orthopaedic Surgery; Visit Provider Orthopaedic Surgery
DX: M24.7 Protrusio acetabuli (principal); M16.0 Bilateral primary osteoarthritis of hip
CPT/HCPCS: 73700

== ENCOUNTER 2024-10-06 06:13 | Day surgery (SDC) | payer MEDICARE, OTHER, SELFPAY ==
[2024-09-28 12:24] VITALS: BMI 26.9
[2024-10-06] VITALS (10 sets, daily range): BP systolic 104–157; BP diastolic 44–69; PULSE 60–92; RESP 14–18; TEMP 36.1–36.5; O2SAT 93–100; BMI 27.3
--- NOTE | 2024-10-06 | DI.RAD.S_ITS ---
PROCEDURE: XR PELVIS 1-2V INDICATIONS: Left Total Hip Athroplasty TECHNIQUE: Intra-operative view of the pelvis and hip acquired. COMPARISON: None. FINDINGS: Bones: Intraoperative devices prior to placement of arthroplasty prostheses are in expected positions. No fractures or suspicious bony lesions. Soft tissues: Overlying surgical retractors are present, along with other intraoperative changes. IMPRESSION: Intraoperative images for a right hip arthroplasty. Dictated by: Jesus Kearney M.D. on 10/06/2024 at 10:11 Approved by: Jesus Kearney M.D. on 10/06/2024 at 10:12
--- NOTE | 2024-10-06 06:00 | DI.RAD.S_ITS ---
PROCEDURE: XR HIP W PEL IF DONE RT 2V INDICATIONS: JOVAN TECHNIQUE: AP pelvis and lateral view of the hip acquired. COMPARISON: None. FINDINGS: Bones: Patient is status post right hip arthroplasty, with hardware components in expected positions. The hip joint appears congruent. The visualized bony structures appear intact. Soft tissues: Overlying postoperative changes are noted. No suspicious soft tissue densities. IMPRESSION: Expected post-operative appearance of a hip arthroplasty. Dictated by: Jesus Kearney M.D. on 10/06/2024 at 11:18 Approved by: Jesus Kearney M.D. on 10/06/2024 at 11:18
[2024-10-06] MEDS: ACETAMINOPHEN 325 MG TABLET 650 MG PO ×2 (07:22→12:53)
[2024-10-06] MEDS: VANCOMYCIN 1,000 MG/200 ML PIGGYBACK 200 MG IV (07:23)
--- NOTE | 2024-10-06 07:35 | PM.PREOP ---
Pre-operative Note Interval Note History & Physical reviewed/Exam performed by Physician: Yes Changes to H&P: No
--- NOTE | 2024-10-06 07:36 | PM.OP.1 ---
Operative Date/Time/Diagnoses Date of procedure: 10/06/24 Time of procedure: 08:00 Pre-op diagnosis: right hip protrusio, right hip OA Post-op diagnosis: same Procedure & Clinicians Procedure: Right total hip arthroplasty posterior approach Same procedure as scheduled: Yes Indications: The patient has had progressively worsening right hip pain with radiographic changes consistent with arthritis. Non-operative management has failed and the patient has requested total hip replacement. The risks, benefits and alternatives to surgery were discussed with the patient prior to proceeding. Risks discussed included, but were not limited to, failure to relieve pain, leg length discrepancy, dislocation, stiffness, infection, nerve damage, deep venous thrombosis, pulmonary embolism, stroke, coma, heart attack, permanent paralysis and , as well as the potential need for eventual revision of the prosthetic. Surgeon: Estefany Shen Literacy Education Professor: Henry Sesay Anesthesia Type: Spinal Operative Notes Findings: Soft bone, severe protrusio, adequate stability Closure Type: primary Specimen(s): none sent Prosthetic devices, grafts, tissues, transplants, or devices: Shen and nephew Redapt 48mm, neutral poly liner, 6.5 mm screws two, cemented Synergy size 10 high offset, 32 by -3 cobalt chrome Estimated Blood Loss (mL): 250 Blood products transfused: none Procedure in detail: The patient was seen in the pre-operative area, where the patient identified the right hip as the operative site and this was marked with my initials. The patient received pre-operative antibiotics and was taken to the operating room and placed on the operative table in the left lateral decubitus position after satisfactory anesthesia. A multimedia author out was performed. The right leg was prepared from the ankle to the iliac crest with ChloroPrep in the usual fashion and draped through sterile drapes. A PA was used during the procedure and was essential for intraoperative retraction and safe implantation of the components. The hip was approached through an approximately 20 cm incision centered over the greater trochanter and curving gently posteriorly as it went proximally. This was carried sharply to the fascia joshua, which was divided and retracted with a self retaining retractor. The trochanteric bursa was excised with care being taken to avoid the sciatic nerve, which was identified and protected throughout the case. The short external rotators were incised and the capsulomuscular flap was raised and tagged for later repair. The hip was dislocated, and a femoral neck osteotomy performed approximately 15 mm above the lesser trochanter. Retractors were placed around the femur. The canal was opened with a box cutting osteotome, followed by a T handled reamer and a lateralizing reamer. The stem was then reamed and the smallest broach was then used, followed by sequential broaching until there was good stability of the broach in the femur. Retractors were placed to expose the acetabulum. The labrum and central soft tissues were removed. Reaming was performed initially going up in 2 mm increments, then 1 mm increments until good bite was obtained with an odd sized reamer. The cup 1 mm larger than the last reamer was then inserted using the appropriate anteversion guides. The cup was further fixed with 2 screws. One screw was placed in standard mode in the 2nd screw was placed in a locking mode. A trial neutral liner was placed. The broach was placed in the canal. A trial head and neck were then placed and the hip relocated and checked for leg length and stability. An intraoperative film confirmed the component position and no evidence of fracture. It looked like there was less than optimum offset and we also did a trial reduction with a high offset stem. The patient was stable in the position of sleep, of squatting, and could be put through a range of motion with 45 degrees internal rotation without dislocation. At 90 degrees flexion, internal rotation to 80? was possible before dislocation. This was felt to be satisfactory and the appropriate components were opened, and the trials were removed. The acetabular liner was impacted into position. The final stem was then carefully cemented into the prepared femoral canal. The canal was meticulously prepared with a distal cement restrictor pulse lavage and packing with hemostatic agent as well as using a whistle tip suction in order to optimize cement mantle. A brief Betadine soak was performed while trialing with head options. The hip was meticulously irrigated with normal saline. Finally the femoral head was impacted onto the stem. The acetabulum was cleared of all material and the hip relocated one final time. The capsulomuscular flap was then repaired to the greater trochanter though an awl hole using the tag sutures. The short external rotators were repaired with a nonabsorbable suture. The fascia joshua was closed with Vicryl. The subcutaneous layer was closed with barbed sutures and SteriStrips. An Aquacel Ag dressing was applied and the patient was taken to recovery having tolerated the procedure well. Complications: none Post-operative Condition: stable Disposition: Acute Care Plan for aftercare: The patient will be maintained on a standard total hip replacement protocol with weight bearing as tolerated and posterior hip precautions. The patient will receive Aspirin and sequential compression devices for DVT prophylaxis. The patient will be discharged home when safe for the home environment.
[2024-10-06] MEDS: CEFAZOLIN 2 GM/100 ML PREMIX 100 ML IV ×2 (08:07→17:23)
[2024-10-06] MEDS: TRANEXAMIC ACID 1,000 MG VIAL 2000 MG INJ ×2 (08:08→10:28)
--- NOTE | 2024-10-06 08:56 | SUR.OPER ---
Lateral on padded OR bed. Gel axillary roll. Arms secured on padded armboard with pillow supporting top arm. Padded hip positioner braces x4 - anterior and posterior chest and pelvis. Additional gel pad used anterior pelvis. Gel pad under bottom leg from knee to foot and secured with tape over sheet.
[2024-10-06] MEDS: BUPIVACAINE 0.25% (PF) 60 ML, EPINEPHrine 0.3 MG INJ (09:07)
[2024-10-06] MEDS: BUPIVACAINE LIPOSOME 266 MG/20 ML VIAL INJ (09:09)
[2024-10-06] MEDS: HYDROMORPHONE 1 MG INJ IV (11:15)
[2024-10-06] MEDS: OXYCODONE IR 5 MG TABLET PO (11:17)
[2024-10-06] MEDS: hydrOXYzine 50 MG/ML INJ 25 MG IM (11:18)
[2024-10-06] MEDS: ONDANSETRON 4 MG/2 ML INJ IV (11:18)
[2024-10-06] MEDS: LACTATED RINGERS 1,000 ML 100 ML IV (12:28)
--- NOTE | 2024-10-06 14:30 | PT.IIE ---
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) Surgery Performed Operation Date: 10/06/24 07:45 Actual Procedures p Total Hip Arthroplasty(Right) - Estefany Shen MD Surgical History (Last Reviewed 12/12/19 @ 20:11 by Karey Stack [facility]) H/O: hysterectomy History of surgery History of tonsillectomy and adenoidectomy (~1939) Hx of bilateral cataract extraction Hx of hemorrhoidectomy (~1968) Medical History (Last Reviewed 01/26/24 @ 17:37 by Charlie Munoz DO) Arthritis Asthma Atrial fibrillation Back pain Diabetes Edema Hearing impaired Hyperlipidemia Hypertension Leg fracture, left RLS (restless legs syndrome) Skin cancer Sleep apnea with use of continuous positive airway pressure (CPAP) TIA (transient ischemic attack) (~2017) Physical Therapy Inpatient Evaluation/Re-Eval M1 PT/OT-IP Prior Functional Status Start: 10/06/24 15:26 Freq: NEEDED Status: Active Protocol: Document 10/06/24 14:30 AB (Rec: 10/06/24 15:49 AB [id number]) Medical Review Prior Functional Status Medical History Reviewed Yes Communication able to make needs known Mobility and Gait pt stated that she was modified independent with all mobilities and ambulation using a 4WW Social History Household Members none Living Arrangements House Number of Floors (Floors) One Floor Number of Stairs To Enter/Railing? ramp to enter Home Environment High Toilet,Walk in Shower Home Equipment Front Wheel Walker,Four Wheel Walker,Shower Seat with Backrest,Hand Held Shower,Lift Recliner,Grab Bars Near Toilet,Grab Bars In Shower Additional Social History Comment pt's daughter and grand daughter lives in the same property as the pt. pt stated that her daughter will be able to stay with her if needed to assist her pt has R sided bed rail but can also sleep on her lift recliner M2 PT-IP Current Condition Start: 10/06/24 15:26 Freq: NEEDED Status: Active Protocol: Document 10/06/24 14:30 AB (Rec: 10/06/24 15:49 AB [id number]) Physical Therapy Current Condition Current Condition Evaluation Date 10/06/24 Treatment Diagnosis s/p RTHA poseterior; difficulty in walking Onset Date 10/06/24 M3 PT-IP Subjective Start: 10/06/24 15:26 Freq: NEEDED Status: Active Protocol: Document 10/06/24 14:30 AB (Rec: 10/06/24 15:49 AB [id number]) Subjective Physical Therapy Visit Type Type Initial Evaluation Visit Start Time 14:30 Visit Stop Time 15:30 Number of REFINING STILL OPERATOR Visits 0 Physical Therapy Visit Comments Patient Comments agreeable tod o PT Therapy Pain Assessment Pain When Pain Assessed At Rest Location Right Hip Intensity 4 Scale Used Numeric (0 - 10) Pain Behaviors Guarding Pain Management Techniques Apply Cold,Distraction, Modification of Treatment,Re- positioning,Timing of Activity with Medications M4 PT-IP Mobility and Gait Start: 10/06/24 15:26 Freq: NEEDED Status: Active Protocol: Document 10/06/24 14:30 AB (Rec: 10/06/24 15:49 [id number]) PT-Bed Mobility Assessment Supine to Sit Supine to Sit Maximum Assistance,1 Person Assistance Scooting Scooting to Edge of Bed Maximum Assistance PT-Transfer Assessment Sit to and From Stand Sit to and from Stand Maximum Assistance,1 Person Assistance,2 Person Assistance ,Use of Upper Extremities Equipment Transfer Assistive Device Gait Belt,Front Wheeled Walker Orthotic/Prosthetic Devices or Brace: No Comments Mobility Comments pt supine in bed and pt's friend in room. obtained PLOF and home setup. post-op folder provided and reviewed contents. pt's daughter arrived. educated pt and daughter regarding pt's R hip posterior precautions. BP in supine: 116/83. completed heel slides prior to getting up. pt completed bed mobility supine to sit max A and max cues. pt used bed rail to assist. pt sat on EOB CGA. required max A for scooting to EOB. BP checked: 157/69. completed sit to stand max A x 1-2 and max cues. max A for initial standing with (+) R knee buckling. cued for quads activation. able to stand min A afterwards. pt refused to ambulate but agreed to take side steps towards HOB and completed ~ 2 ft using FWW side stepping min A and cues. pt completed sit to supine mod A with LE elevation. positioned pt in bed. call light and table placed within reach. ice pack provided. BP: 104/59 caregiver training set up at 1030 am tomorrow. Gait Assessment Gait Gait Assistance Required: Minimum Assistance Distance (Feet) 2 Able to Maintain Weight Bearing Status Yes During Gait Assistive Devices Assistive Device Gait Belt,Front Wheeled Walker Orthotic/Prosthetic Devices or Brace: No Gait Deviations General Gait Pattern Antalgic,Decreased Stride Length,Decreased Feet Clearance,Step-to Gait Factors Limiting Gait Function Factors Limiting Gait Function Decreased Activity Tolerance, Decreased Strength,Difficulty Following Directions,Limited Range of Motion,Pain,Poor Balance,Poor Safety Awareness Comments Gait Comments able to take side steps using FWW to position towards HOB PT-Balance Assessment Sitting Balance and Reactions Static Sitting Balance Ability Good Dynamic Sitting Balance Ability Fair Standing Balance and Reactions Static Standing Balance Ability Poor Dynamic Standing Balance Ability Poor Device Used FWW M5 PT-IP Objective Assessments Start: 10/06/24 15:26 Freq: NEEDED Status: Active Protocol: Document 10/06/24 14:30 AB (Rec: 10/06/24 15:49 AB [id number]) Orientation Orientation/Cognition Level of Alertness Alert Orientation Name,Place,Situation Language Function Ability Hard of Hearing Safety Awareness Decreased Safety Awareness Memory Description Short Term Impaired Gross Range of Motion Lower Extremity ROM Assessment Within Functional Limits Strength Lower Extremity Strength Assessment Bilaterally Impaired Hip 4-/5 Knee LLE: 4-/5 RLE: 3+/5 Sensation Assessment Sensation Gross Sensation WNL Muscle Tone Muscle Tone WNL Yes M6 PT-IP Treatment Start: 10/06/24 15:26 Freq: NEEDED Status: Active Protocol: Document 10/06/24 14:30 AB (Rec: 10/06/24 15:49 AB [id number]) Physical Therapy Treatment Exercises Exercises Heel Slides Education Education Provided Precautions,Weight Bearing Status,Post-Op Packet,Safety M7 PT-IP Assessment and Plan Start: 10/06/24 15:26 Freq: NEEDED Status: Active Protocol: Document 10/06/24 14:30 AB (Rec: 10/06/24 15:49 AB [id number]) PT Summary Assessment and Plan Potential Rehabilitation Potential Fair Status of Condition at Evaluation Evolving Summary Impairments Pain,ROM,Strength,Balance, Coordination,Sensation,Tone, Cognition,Bed Mobility, Transfers,Gait,Activity Tolerance Assessment Summary pt is an 88 y/o F s/p R JOVAN posterior approach POD 0. pt with R hip posterior precautions and is WBAT. pt requiring max A with bed mobility, max A x 1-2 for sit to stand. pt able to take side steps using FWW min A ~ 2 ft. pt lives alone but will have her daughter to assist up at home. caregiver training set up tomorrow at 1030 am. will continue to assess progress. Goals Bed Mobility Goal Standby Assistance Transfer Goal Standby Assistance,Front Wheeled Walker Gait Goal Standby Assistance,Front Wheel Walker Gait Distance 150 Other Goals improve bed mobility, transfers, ambulation using FWW ~ 250 ft mod I Days to Meet Goals 5 Frequency of Treatment Frequency Of Treatment Twice a Day Treatment Plan Physical Therapy Treatment Plan Bed Mobility Training,Transfer Training,Gait Training, Therapeutic Exercise,Balance Retraining,Post Op Education, Discharge Planning,Hot or Cold Pack,Neuromuscular Re-ed, Coordination Retraining,Manual Therapy Other Recommendations and Next Treatment caregiver trainin/20@ [facility] 1030am Precautions Posterior Hip Precautions No Hip Flexion > 90 degrees,No Hip Internal Rotation,No Hip Adduction Weight Bearing Status Weight Bearing Status Weight Bear as Tolerated Allowed Weight Bearing Amount (enter % RLE WBAT or #) (%) Recommendations To Nursing Amount of Assist Needed 2 Person Assist Discharge Recommendations PT Discharge Recommendations Home with 10/06 Assist Available,Home Health, Outpatient PT Transportation Needs at Discharge Private Vehicle,Wheelchair/ Cabulance
--- NOTE | 2024-10-06 15:31 | OT.IPNOTE ---
Pt just finishing seeing PT and able to talk to pt and family regrading equipment needs. To see pt tomorrow for OT eval.
--- NOTE | 2024-10-06 19:21 | PC.NURSE ---
Patients reading glasses were left in preop.
[2024-10-06] MEDS: DOCUSATE 100 MG CAPSULE PO (20:33)
[2024-10-06] MEDS: ATORVASTATIN 20 MG TABLET 10 MG PO (20:33)
[2024-10-07] VITALS: BP 136/88; PULSE 74; RESP 18; TEMP 37; O2SAT 96
[2024-10-07] MEDS: CEFAZOLIN 2 GM/100 ML PREMIX 100 ML IV (00:26)
[2024-10-07 06:02] LABS: Hematocrit 28.7 % (36-46); Hemoglobin 9.4 g/dL (12.0-16.0)
--- NOTE | 2024-10-07 07:50 | P.DS_ITS ---
History of Present Illness History of Present Illness Chief complaint: Right JOVAN *OPB* Narrative: Lizy is a pleasant 88 year old female who is POD#1 s/p R posterior JOVAN by Dr. Shen. History of Rickets's as a child. This morning patient reports she is doing well, denies any pain. She reports she is hoping to d/c to home today w/ her Daughter and granddaughter. They are coming at 10:30 am to meet PT. She has a walker and bedside commode at home already. She has postop pain medications at home already. She is urinating on her own without issue. Has post-op PT scheduled already. Denies any history of blood clots is chronically anticoagulated on Xarelto for A-fib. Denies fever, chills, chest pain, SOB, nausea, vomiting. Discharge Providers Provider Discharge Date: 10/07/24 Primary care physician: Pasha CHRISTIANSON Provider Consults: 10/06/24 06:00 Consult to Anesthesiology Routine Comment: Consulting Provider: Anesthesiologist Reason for consultation: Regional block for post operative pain control Has provider been notified: No 10/06/24 12:12 Consult to Discharge Planning Routine Comment: Consult to Occupational Therapy Evaluate & Treat Comment: Physician Instructions: Evaluate and treat Consult to Physical Therapy Evaluate & Treat Comment: Physician Instructions: post op JOVAN protocol Discharge provider: Karly Jasso PA-C Summary Hospital Course Discharge Diagnosis: Stable status post right total hip arthroplasty Hospital Course: Uncomplicated hospital course Exam Vital Signs (past 8 hours): - 10/07/24 00:00 Temperature 98.6 F Pulse Rate 74 Respiratory Rate 18 Blood Pressure 136/88 Pulse Oximetry 96 Oxygen Flow Rate 0 Oxygen Delivery Method Room Air Oxygen Flow Rate 0 Narrative Exam Narrative: Patient lying comfortably in bed during our interview today. No acute distress. AOx3. Grossly normal alignment of the right lower extremity. 5/5 strength with DF, PF, EHL bilaterally. Gross sensation intact throughout bilateral lower extremities. Calves soft and non-tender bilaterally. Brisk capillary refill, pulses intact. Post-surgical Aquacel dressing clean, dry and intact over the right posterior hip without drainage. Objective Labs 10/07/24 05:50 Labs: Laboratory Results - last 24 hr 10/07/24 05:50 Hgb 9.4 L Hct 28.7 L PFSH Medical History (Updated 02/10/24 @ 00:00 by ) Asthma Back pain Arthritis Skin cancer Leg fracture, left Edema Sleep apnea with use of continuous positive airway pressure (CPAP) Hearing impaired RLS (restless legs syndrome) TIA (transient ischemic attack) (~2018) Atrial fibrillation Hyperlipidemia Hypertension Diabetes Surgical History Hx of hemorrhoidectomy (~1968) History of surgery History of tonsillectomy and adenoidectomy (~1939) H/O: hysterectomy Hx of bilateral cataract extraction Family History Mother Diabetes mellitus Myocardial infarction Father Diabetes mellitus Social History household members: none Smoking Status: Never smoker alcohol intake: current Discharge Assessment & Plan Assessment and Plan Assessment: Stable s/p R posterior JOVAN Plan of Treatment: 1) Plan to discharge to home today with daughter pending PT evaluation. 2) Continue multimodal pain management with ice to the hip for additional pain control. Has postop pain medication at home already. 3) Plan to resume Xarelto for DVT prophylaxis on the AM of POD#2. 4) Start outpatient physical therapy to work on range of motion and mobility. WBAT, maintain posterior hip precautions. 5) Keep dressing intact, clean, dry until 2 week postop appointment. No soaking the incision site in pools or tubs. No topical ointments or creams to the incision site. 6) Follow up at [facility] orthopedics in 2 weeks for a postop appointment and wound check. All patient's questions were answered, she demonstrates understanding and is in agreement with the plan. Call our office if any questions or concerns arise. Discharge Plan Discharge Plan Patient Disposition: Home Discharge orders & Medications Discharge Orders: Discharge (Order); Ordered 10/07/24 Ordered By: Karly Jasso Prescriptions: New oxycodone 5 mg Tablet 5 mg PO Q4-6H PRN (Reason: Pain, Moderate (4-6)) Qty: 30 0RF docusate sodium 100 mg Capsule 100 mg PO BID PRN (Reason: Constipation) Qty: 30 0RF ondansetron 4 mg Tablet,Disintegrating 4 mg PO Q4-8H PRN (Reason: Nausea) Qty: 10 0RF Continued simvastatin 20 mg tablet 20 mg PO QAM albuterol sulfate 90 mcg/actuation HFA aerosol inhaler 2 puff Inhalation Q4H PRN (Reason: Wheezing) atenolol 50 mg tablet 50 mg PO QAM loratadine 10 mg tablet 1 tab PO QAM albuterol sulfate 0.63 mg/3 mL Solution For Nebulization 0.63 mg INHALATION Q4H PRN (Reason: Shortness Of Breath Or Wheezing) fluticasone propion-salmeterol [Advair Diskus] 250-50 mcg/dose Blister With Device 1 inh INHALATION BID acetaminophen 325 mg Tablet 650 mg PO Q6HR PRN (Reason: Pain, Mild (1-3)) Qty: 35 0RF furosemide 40 mg tablet 40 mg PO QAM cyclobenzaprine 10 mg tablet 10 mg PO TID PRN (Reason: muscle spasm) Qty: 20 0RF lisinopril 40 mg tablet 40 mg PO QAM ferrous sulfate 324 mg (65 mg iron) tablet,delayed release (DR/EC) 324 mg PO QAM Xarelto 20 mg tablet 20 mg PO DAILY lidocaine 5 % adhesive patch,medicated 1 patch TOP DAILY PRN (Reason: hip pain) Rx Instructions: leave on most painful area for up to 12 hrs Follow up/Referrals: Karly Jasso PA-C [Advanced Genetic Supervisor] - 10/19/24 1:30 pm (appt:10/19 @ 1:30 with Bunny RÍOS @ [facility] please arrive 15 min prior to your scheduled appointment time ) ProviderPasha [Primary Care Provider] - Diet/Activity/Treatments Diet: Diet as Tolerated Activity: Weightbearing as tolerated. Posterior hip precautions. Work w/ outpatient PT to improve mobility. Cold/Heat Therapy: Ice to hip as needed for pain. Skin/Wound/Dressing Care Report to your healthcare provider any signs of infection, such as:: chills, fever, night sweats, unusual drainage and unusual redness Dressing: May shower. Leave dressing in place until follow up in office. No bathing or otherwise soaking incision. Call the office if the dressing becomes saturated inside. Visit Report/Discharge Packet Instructions: DI for Hip Replacement, DI for Prescription Opioid Use Stand Alone Forms: Patient Portal/API Discharge Data Primary Care Provider: Pasha Salgado Attending Provider: Estefany Shen VTE Deep Vein Thrombosis/Pulmonary Embolism Present on Admission: No
[2024-10-07 08:00] VITALS: BP 142/68; PULSE 87; RESP 15; TEMP 36.6; O2SAT 98
[2024-10-07 08:46] VITALS: BP 142/68; PULSE 87
[2024-10-07] MEDS: lisinopriL 20 MG TABLET 40 MG PO (08:46)
[2024-10-07] MEDS: FERROUS SULFATE 325 MG TABLET PO (08:47)
[2024-10-07] MEDS: DOCUSATE 100 MG CAPSULE PO (08:47)
[2024-10-07] MEDS: atenoloL 50 MG TABLET PO (08:47)
[2024-10-07] MEDS: FUROSEMIDE 40 MG TABLET PO (08:47)
[2024-10-07] MEDS: ACETAMINOPHEN 325 MG TABLET 650 MG PO (08:47)
[2024-10-07] MEDS: LORATADINE 10 MG TABLET PO (08:47)
--- NOTE | 2024-10-07 10:30 | PT.IPTN ---
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) Surgery Performed Operation Date: 10/06/24 07:45 Actual Procedures p Total Hip Arthroplasty(Right) - Estefany Shen MD Physical Therapy Treatment Note M2 PT-IP Current Condition Start: 10/06/24 15:26 Freq: NEEDED Status: Active Protocol: Document 10/06/24 14:30 AB (Rec: 10/06/24 15:49 AB [id number]) Physical Therapy Current Condition Current Condition Evaluation Date 10/06/24 Treatment Diagnosis s/p RTHA poseterior; difficulty in walking Onset Date 10/06/24 M3 PT-IP Subjective Start: 10/06/24 15:26 Freq: NEEDED Status: Active Protocol: Document 10/07/24 11:10 TS (Rec: 10/07/24 11:27 TS [id number]) Subjective Physical Therapy Visit Type Type Treatment Note Visit Start Time 10:30 Visit Stop Time 11:08 Notes Family present Number of MANAGER BUSINESS OPERATIONS Visits 1 Physical Therapy Visit Comments Patient Comments Pt found resting in bed, she is agreeable to PT. Therapy Pain Assessment Pain When Pain Assessed At Rest Pain Present Pain Present Pain Reported M4 PT-IP Mobility and Gait Start: 10/06/24 15:26 Freq: NEEDED Status: Active Protocol: Document 10/07/24 11:10 TS (Rec: 10/07/24 11:27 TS [id number]) PT-Bed Mobility Assessment Supine to Sit Supine to Sit Maximum Assistance,1 Person Assistance Sit to Supine Sit to Supine Maximum Assistance,2 Person Assistance Scooting Scooting to Edge of Bed Maximum Assistance PT-Transfer Assessment Sit to and From Stand Sit to and from Stand Moderate Assistance,1 Person Assistance Equipment Transfer Assistive Device Gait Belt,Front Wheeled Walker Orthotic/Prosthetic Devices or Brace: No Comments Mobility Comments Pt recalls 2/3 hip precautions , does not recall no int rotation. Pt performs supine to sit MaxA x1 for uprighting trunk and RLE assist. STS with FWW ModA x1, caregiver dons gait belt and assists pt into standing. She ambulates ~15' with FWW in the room CGA from caregiver. Sit to supine into bed MaxA x2. Pt was left in bed, all needs met. Gait Assessment Gait Gait Assistance Required: Contact Guard Assist Distance (Feet) 15 Able to Maintain Weight Bearing Status Yes During Gait Assistive Devices Assistive Device Gait Belt,Front Wheeled Walker Orthotic/Prosthetic Devices or Brace: No Gait Deviations General Gait Pattern Antalgic,Decreased Stride Length,Decreased Feet Clearance,Step-to Gait Factors Limiting Gait Function Factors Limiting Gait Function Decreased Activity Tolerance, Decreased Strength,Difficulty Following Directions,Limited Range of Motion,Pain,Poor Balance,Poor Safety Awareness PT-Balance Assessment Sitting Balance and Reactions Static Sitting Balance Ability Good Dynamic Sitting Balance Ability Fair Standing Balance and Reactions Static Standing Balance Ability Fair Dynamic Standing Balance Ability Fair Device Used FWW M5 PT-IP Objective Assessments Start: 10/06/24 15:26 Freq: NEEDED Status: Active Protocol: Document 10/06/24 14:30 AB (Rec: 10/06/24 15:49 AB [id number]) Orientation Orientation/Cognition Level of Alertness Alert Orientation Name,Place,Situation Language Function Ability Hard of Hearing Safety Awareness Decreased Safety Awareness Memory Description Short Term Impaired Gross Range of Motion Lower Extremity ROM Assessment Within Functional Limits Strength Lower Extremity Strength Assessment Bilaterally Impaired Hip 4-/5 Knee LLE: 4-/5 RLE: 3+/5 Sensation Assessment Sensation Gross Sensation WNL Muscle Tone Muscle Tone WNL Yes M6 PT-IP Treatment Start: 10/06/24 15:26 Freq: NEEDED Status: Active Protocol: Document 10/07/24 11:10 TS (Rec: 10/07/24 11:27 TS [id number]) Physical Therapy Treatment Exercises Exercises Ankle Pumps,Gluteal Sets,Quad Sets,Heel Slides Education Education Provided Precautions,Weight Bearing Status,Post-Op Packet,Safety M7 PT-IP Assessment and Plan Start: 10/06/24 15:26 Freq: NEEDED Status: Active Protocol: Document 10/07/24 11:10 TS (Rec: 10/07/24 11:27 TS [id number]) PT Summary Assessment and Plan Potential Rehabilitation Potential Fair Summary Impairments Pain,ROM,Strength,Balance, Coordination,Sensation,Tone, Cognition,Bed Mobility, Transfers,Gait,Activity Tolerance Progress Towards Goals Progressing Toward Goals,Slow Progress - Other Assessment Summary Lizy is making some progress with her mobility but is limited weakness and pain. She requires MaxA for bed mobility. She performed STS with FWW ModA. She progressed her gait to ~15'CGA with FWW. Family was instructed in and performed donning of gait belt , bed mobility, STS and gait training. She has some difficulty recalling precautions, education was provided. Recommended she sleep in lift recliner if bed mobility is too difficult. PT is recommending home with 24/7 assist. Goals Bed Mobility Goal Standby Assistance Transfer Goal Standby Assistance,Front Wheeled Walker Gait Goal Standby Assistance,Front Wheel Walker Gait Distance 150 Other Goals improve bed mobility, transfers, ambulation using FWW ~ 250 ft mod I Days to Meet Goals 5 Frequency of Treatment Frequency Of Treatment Twice a Day Treatment Plan Physical Therapy Treatment Plan Bed Mobility Training,Transfer Training,Gait Training, Therapeutic Exercise,Balance Retraining,Post Op Education, Discharge Planning,Hot or Cold Pack,Neuromuscular Re-ed, Coordination Retraining,Manual Therapy Precautions Posterior Hip Precautions No Hip Flexion > 90 degrees,No Hip Internal Rotation,No Hip Adduction Weight Bearing Status Weight Bearing Status Weight Bear as Tolerated Allowed Weight Bearing Amount (enter % RLE WBAT or #) (%) Recommendations To Nursing Amount of Assist Needed 2 Person Assist Discharge Recommendations PT Discharge Recommendations Home with 24/7 Assist Available,Home Health, Outpatient PT Transportation Needs at Discharge Private Vehicle
--- NOTE | 2024-10-07 11:30 | OT.IP.EVAL ---
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) Surgery Performed Operation Date: 10/06/24 07:45 Actual Procedures p Total Hip Arthroplasty(Right) - Estefany Shen MD Past Medical History (Last Reviewed 01/26/24 @ 17:37 by Charlie Munoz DO) Arthritis Asthma Atrial fibrillation Back pain Diabetes Edema Hearing impaired Hyperlipidemia Hypertension Leg fracture, left RLS (restless legs syndrome) Skin cancer Sleep apnea with use of continuous positive airway pressure (CPAP) TIA (transient ischemic attack) (~2018) Surgical History (Last Reviewed 12/12/19 @ 20:11 by Karey Stack, [facility]) H/O: hysterectomy History of surgery History of tonsillectomy and adenoidectomy (~193) Hx of bilateral cataract extraction Hx of hemorrhoidectomy (~1968) Occupational Therapy Inpatient Evaluation/Re-Eval M1 PT/OT-IP Prior Functional Status Start: 10/06/24 15:26 Freq: NEEDED Status: Active Protocol: Document 10/07/24 12:11 [facility] (Rec: 10/07/24 12:21 [facility] [id number]) Medical Review Prior Functional Status Medical History Reviewed Yes Communication able to make needs known Mobility and Gait pt stated that she was modified independent with all mobilities and ambulation using a 4WW Activities of Daily Living and IADL's Pt's family assisting with LB dressing and IADL needs. Social History Household Members none Living Arrangements House Number of Floors (Floors) One Floor Number of Stairs To Enter/Railing? ramp to enter Home Environment High Toilet,Walk in Shower Home Equipment Front Wheel Walker,Four Wheel Walker,Shower Seat with Backrest,Hand Held Shower,Lift Recliner,Grab Bars Near Toilet,Grab Bars In Shower Additional Social History Comment pt's daughter and grand daughter lives in the same property as the pt. pt stated that her daughter will be able to stay with her if needed to assist her pt has R sided bed rail but can also sleep on her lift recliner M2 OT-IP Current Condition Start: 10/07/24 12:11 Freq: Status: Active Protocol: Document 10/07/24 12:11 [facility] (Rec: 10/07/24 12:21 [facility] [id number]) Occupational Therapy Current Condition Current Condition Evaluation Date 10/07/24 Treatment Diagnosis S/P R JOVAN Diagnosis Onset Date 10/06/24 M3 OT- IP Subjective and Pain Start: 10/07/24 12:11 Freq: Status: Active Protocol: Document 10/07/24 12:11 [facility] (Rec: 10/07/24 12:21 [facility] [id number]) OT- Subjective Occupational Therapy Visit Type Type Initial Evaluation Visit Start Time 11:10 Visit Stop Time 11:30 Occupational Therapy Visit Comments Patient Comments Pt too tired to get up as just completing PT. Patient/Caregiver Goals TO go home. OT Pain Assessment Pain When Pain Assessed At Rest Pain Present Pain Present Denied Pain M4 OT- IP ADL's Start: 10/07/24 12:11 Freq: Status: Active Protocol: Document 10/07/24 12:11 [facility] (Rec: 10/07/24 12:21 [facility] [id number]) OT [id number] General Evaluation Self-Feeding Ability Standby Assistance Comments OT Self-Feeding Comments Set-up. OT ADL-Grooming General Evaluation Grooming Ability Standby Assistance OT ADL-Oral Care Comments Oral Care Comments NOt performed. OT ADL-Dressing Comments OT Dressing Comments Pt states to get dressed later wit her family. Educated to dress the RLE first and take out last. OT ADL-Toileting Comments OT Toileting Comments Suggested to get a BSC, use of pads/brief. Pt will need assist for hygiene at this time. OT ADL-Bathing Comments OT Bathing Comments Educated care for dressing needs. M5 OT- IP IADL's Start: 10/07/24 12:11 Freq: Status: Active Protocol: Document 10/07/24 12:11 [facility] (Rec: 10/07/24 12:21 [facility] [id number]) OT-Instrumental Activities of Daily Living Home Safety Awareness Awareness of Need for Assistance at Home Good Awareness Home Safety Comments Pt has supportive family to be able to assist with all her needs. Medication Management Medication Management Caregiver Administers Money Management Money Management Caregiver Provides Assistance Meal Preparation Meal Preparation Caregiver Provides Assist Didactic Instructor Didactic Instructor Caregiver Provides Assist M6 OT- IP Functional Cognition Start: 10/07/24 12:11 Freq: Status: Active Protocol: Document 10/07/24 12:11 [facility] (Rec: 10/07/24 12:21 [facility] [id number]) Cognitive Factors Limiting Selfcare Function Cognitive Ability Level of Alertness Alert Patient Orientation Name,Age,Birthday,Month,Year, Place,Situation Attention Span Ability Capable of Focused Attention, Capable of Sustained Attention Ability to Follow Commands Able to Follow One Step Commands Safety Awareness Decreased Recall of Precautions Cognitive Comments Cognitive Assessment Comments Pt needing cue to recall her hip precautions. Pt's family able to states good understanding of how to incorporate her hip precautions for ADL and mobility needs. OT- Vision and Hearing OT- Hearing Assessment OT- Hearing Assessment Hearing Impaired,Use of Hearing Aids OT- Vision Assessment Visual Acuity Glasses For Reading Visual Attentiveness WFL Occular Pursuits WFL M7 OT- IP Mobility and Balance Start: 10/07/24 12:11 Freq: Status: Active Protocol: Document 10/07/24 12:11 [facility] (Rec: 10/07/24 12:21 [facility] [id number]) OT- Balance Assessment Comments Other Balance Tests/Deviations/Treatment Pt not wanting to get up at : this time. PT has cleared pt to go home and see PT noted for mobility needs. M8 OT- IP Objective Assessments Start: 10/07/24 12:11 Freq: Status: Active Protocol: Document 10/07/24 12:11 [facility] (Rec: 10/07/24 12:21 [facility] [id number]) OT Gross Range of Motion Upper Extremity Range of Motion Assessment Bilaterally Impaired OT Strength Upper Extremity Strength Assessment Bilaterally Impaired M9 OT- IP Assessment and Plan Start: 10/07/24 12:11 Freq: Status: Active Protocol: Document 10/07/24 12:11 [facility] (Rec: 10/07/24 12:21 [facility] [id number]) OT Summary Assessment and Plan Potential Rehabilitation Potential Good Analytic Complexity at Evaluation Low Summary OT Impairments Pain,Range of Motion,Strength, Balance,Functional Mobility, Dressing,Toileting,Bathing, Toilet Transfers,Shower Transfers Progress Towards Goals Progressing Toward Goals,Slow Progress due to Pain Assessment Summary Pt low complexity and man barriers are pain and decreased activity tolerance. Pt to go home with supportive family after education has good understanding how to assist pt for all needs for ADL's. Pt will benefit from getting a BSC. Pt to go home with 10/06 assist. Goals Self-Feeding Goal Standby Assistance Grooming Goal Standby Assistance Dressing Goal Moderate Assistance Toileting Goal Minimal Assistance Bathing Goal Moderate Assistance Toilet Transfer Goal Standby Assistance Shower Transfer Goal Minimal Assistance Days to Meet Goals 15 Frequency of Treatment Other frequency 5x/week Treatment Plan OT Treatment Plan ADL Training,Functional Mobility,Patient/Family Education,Discharge Planning Discharge Recommendations OT Discharge Recommendations Home with 10/06 Assist Available,Home Health, Outpatient PT Home Equipment Needs [facility] Transportation Needs at Discharge Private Vehicle
--- NOTE | 2024-10-07 12:53 | PC.NURSE ---
Pt discharged home with family care at 1153, escorted off floor in wheelchair accompanied by family and hospital staff. IV removed, discharge teaching completed including new medications, wound care and follow up appointments. Patient left the floor with all belongings.
--- NOTE | 2024-10-07 12:58 | CM.DANOTE ---
Initial DCP Assessment Visit Note Reviewed EMR and team rounds for status updates. Met with pt at bedside to introduce self and role, pt was found to be alert/oriented, pain well controlled, and expressing feeling anxious to d/c home later today. Pt lives modified independently with the use of a walker, her dtr resides in another home on the same property, and will be providing caregiving/assistance for pt's home recovery needs. Dtr will also be transporting her home after working with PT later this morning. Pt denies any CM assistance/resource needs at this time. Payor: [employer] OCN Attending: Dr. Estefany Shen Pt is a 88 year-old F post-op day 1 from a R-total hip arthroplasty surgery. She has a hx of worsening R-hip pain that radiates down both of her legs, and conservative efforts have not provided lasting relief. She shared that she has all of the necessary DME at home, and has already scheduled her OP PT. Ortho will see her again in 2-weeks for her post-op wound check appointment. Discharge Planning/Care Management Advanced directive, confirm from FAMILY Start: 10/06/24 12:11 Freq: Q24H Status: Active Protocol: Document 10/06/24 12:11 LW (Rec: 10/06/24 15:20 LW [id number]) Advance Directive, confirm on record Time 12:11 Person contacted patient Copy received No CM Discharge Assessment Start: 10/07/24 12:53 Freq: Status: Active Protocol: Document 10/07/24 12:53 [facility] (Rec: 10/07/24 12:58 [facility] [id number]) Discharge Planning Assessment Assigned Staffing Associate DAISY Hameed Advance Directives? Yes Advance Directives on File No History Provided By Patient,Medical Record Expected Length of Stay 1 Has Patient been admitted in last 30 No days? Prior Living Arrangements House Household Members none Type of transporation used prior to Relies on Others admit Comment Daughter Independent with ADL's No: modified independent with a walker Needs Assistance With Home Chores / Shopping Caregiver for Another No Comment N/A DME Already Rented / Owned Elevated Toilet Seat,FWW / Walker Comment 4WW Patient/Family Preference Home with Home Health Barriers to Discharge No Discharge Plan Home Transportation Arrangement Daughter Referrals Initiated None needed Whiteboard Updated in Patient Room with Yes name and ext. # of Staffing Associate Review Status In Process Please Provide Date Initial DC 10/07/24 Assessment Was Performed Pre-Anesthesia Assessment Start: 09/28/24 09:27 Freq: Status: Active Protocol: Document 09/28/24 12:24 LB (Rec: 09/28/24 13:31 [facility] [id number]) Pre-Anesthesia Assessment PAC Comment 09/28/24 Phone assessment. Preferred Name Tiana Patient Information Reviewed Via Phone Assessment Assessment Completed With Patient Diagnostic Results BMP/CMP,CBC,EKG,PT/INR Comment 07/27/24 at . BUN 50, Cr 1.17 Junctional rhythm with PVC's Primary Care Provider Ezekiel Machado Seen Specialist in Last 12 Months Yes Specialist Seen Emergency,Orthopedist Primary Language Mauritian Preferred Language Mauritian Stringing Machine Tender Required No Height 157.48 cm Weight 66.678 kg Body Mass Index (BMI) 26.9 Hearing Ability Use of Hearing Aid Visual Assist Glasses Dentition Type Teeth, Natural Present Barriers to Learning None Other Aids No Comment For reading. Right hearing aid. Hx Anesthesia Reactions No Hx Family Anesthesia Reaction No Hx Malignant Hyperthermia No Hx Blood Transfusions Yes: 1969 r/t hemorrhoid surgery Hx Blood Transfusion Reaction No Anesthesia Review Requested No Biomed Tech No alcohol intake current alcohol intake frequency holidays/special occasions only Smoking Status Never smoker Substance Use Type does not use Pain Present Denied Pain Comment Right hip. Musculoskeletal Symptoms Back Pain,Difficulty Walking, Joint Pain History of Falling (Recent or History of No ) Patient is completely paralyzed or No completely immobile Prosthesis or Orthotic Device Front Wheel Walker Mental Status Oriented to own ability Comment Will bring walker. Is patient on oxygen? No Does patient have SELBY/SOB Yes Hx Sleep Apnea Yes CPAP/BIPAP use prescribed and used routinely Will Bring CPAP/BIPAP DOS Yes Currently Taking a Beta Ce Yes: Atenolol 50mg daily. Can You Climb a Flight of Stairs Without No SOB Hx Chest Pain No Hx SOB Yes Hx Syncope or Dizziness Yes: Prior dizziness. Not in a long time. Anti-Coagulant Therapy Yes: Xarelto 20mg daily - instructed to hold 72h prior to procedure by surgeon. Has a [employer] Intermediary Yes Cardiac Testing Yes: Nuc stress 04/09/19, Echo @ [facility] 03/20/19, Heart cath Hx Pacemaker/ICD No Dysphagia No Gastrointestinal Symptoms Constipation Bladder Pattern Nocturia Urinary Catheter Present No Hx Urinary Self Catheterization No Diabetes No Patient No Lactating No Hx Drug Resistant Organism No Presence of External or Internal Medical Yes: CPAP Devices Have you had any close contact with No someone diagnosed with COVID-19? Are you experiencing any of these No symptoms symptoms? Comment denies covid last 2 months. Lives With children Current Living Arrangements House Number of Floors (Floors) One Floor Number of Stairs To Enter/Railing? Has a ramp to enter. Support System Child/Children Does the Patient Have Assistance After Yes Surgery Patient Discharge Plan Description Return Home Additional comment Unsure of plan. Feels Safe in Current Environment Yes Do you have a plan to hurt yourself or No Plan others? Do You Have Any Spiritual Beliefs That No May Affect Your HC Choices? Do You Have Any Cultural Practices That No May Affect Your HC Choices? Emergency Contact Name Diane Cottrell - daughter Emergency Contact Advance Directives? Yes Advance Directives on File No PAC Instructions Assistance for 24 hours post- op,Bring CPAP/BIPAP,Durable medical equipment,Medications to take/avoid,Nasal antibiotic ,No ETOH/petroleum product on skin DOS,NPO,Post-op transportation,Pre-surgical wash,Sensory aids,Sturdy shoes /comfortable clothes,Do not bring valuables and remove jewelry
== END 2024-10-07 12:00 | disposition home or self-care (01) ==
LOC: OR 06:14 → AC 06:18
PROVIDERS: Referring Provider Orthopaedic Surgery; Visit Provider Orthopaedic Surgery
PROC: 0SR90JZ Replacement of Right Hip Joint with Synthetic Substitute, Open Approach (ICD-10-PCS; CPT 27130; principal; 2024-10-06 07:45)
DX: M16.11 Unilateral primary osteoarthritis, right hip (principal); M24.7 Protrusio acetabuli; G47.33 Obstructive sleep apnea (adult) (pediatric); I48.91 Unspecified atrial fibrillation
CPT/HCPCS: 27130; 36415; 72170; 73502; 82962; 85014; 85018; 97116; 97162; 97165; 97530; C1776; C9290; J0171; J0690; J1100; J1171; J2405; J2704; J3010; J3410

== ENCOUNTER 2025-06-17 14:18 | Inpatient (IN) | payer MEDICARE, OTHER, SELFPAY ==
[2024-10-06 06:32] VITALS: BMI 27.3
[2025-06-17 14:37] VITALS: BP 190/79; PULSE 50; RESP 16; TEMP 36.4; O2SAT 98; BMI 28.9
--- NOTE | 2025-06-17 14:45 | DI.RAD.S_ITS ---
PROCEDURE: XR CHEST 1V INDICATIONS: Chest Pain TECHNIQUE: One view of the chest was acquired. COMPARISON: [facility], CR, XR CHEST 1V, 12/28/2018, 18:46. [facility], CR, XR CHEST 1V, 04/16/2018, 17:10. FINDINGS: Surgical changes and devices: None. Lungs and pleura: Diffuse interstitial opacities and peribronchial cuffing. Streaky left perihilar opacity. Mediastinum: Mediastinal contours appear normal. Heart size is enlarged. Bones and chest wall: No suspicious bony lesions. Overlying soft tissues appear unremarkable. IMPRESSION: Gwhs-jb-dmdvikic pulmonary edema. Streaky left perihilar opacity could represent atelectasis or aspiration. Dictated by: Jesus Kearney M.D. on 06/17/2025 at 15:02 Approved by: Jesus Kearney M.D. on 06/17/2025 at 15:03
[2025-06-17] MEDS: ASPIRIN 81 MG CHEW TAB 324 MG PO (15:03)
--- NOTE | 2025-06-17 15:03 | EKG_ITS ---
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
[2025-06-17 15:22] LABS: Add Manual Diff / Slide Review NO; Hematocrit 32.5 % (36-46); Hemoglobin 10.6 g/dL (12.0-16.0); Lymphocytes Absolute Auto 1300 /uL (1100-4500); Mean Corpuscular HGB Conc 32.7 % (30-36); Mean Corpuscular Hemoglobin 26.7 PG (26-34); Mean Corpuscular Volume 81.7 fL (80-100); Platelet Count 358 X10^3/uL (150-400)
[2025-06-17] MEDS: SODIUM CHLORIDE 0.9% 1,000 ML 1000 ML IV (16:21)
[2025-06-17 16:28] LABS: INR 1.7 (0.9-1.3); Prothrombin Time 18.9 SECONDS (9.4-12.5)
[2025-06-17 16:31] LABS: PTT Partial Thromboplastin Tim 45 SECONDS (25.1-36.5)
[2025-06-17 16:35] LABS: Alanine Aminotransferase 37 IU/L (<35); Albumin 3.9 g/dL (3.5-5.0); Albumin Globulin Ratio 1.1 (1.0-2.8); Alkaline Phosphatase 145 U/L (38-126); Blood Urea Nitrogen 44 mg/dL (7-17); Calcium 9.1 mg/dL (8.4-10.2); Carbon Dioxide 21 mmol/L (22-32); Chloride 87 mmol/L (98-107); Creatine Kinase 59 U/L (30-135); Estimated Glomerular Filt Rate > 60 mL/min (>60); Globulin 3.4 g/dL (1.7-4.1); Glucose 112 mg/dL (70-99); HEMOLYSIS < 15 (0-50); Lipase 538 U/L (23-300); Magnesium 1.9 mg/dL (1.6-2.3); Potassium 5.4 mmol/L (3.4-5.1); Total Protein 7.3 g/dL (6.3-8.2)
[2025-06-17 16:37] LABS: Sodium 118 mmol/L (137-145)
[2025-06-17 16:46] LABS: NT-proBNP (BNP-Adult 18+) 6610 pg/mL (<450); Troponin I < 0.012 ng/mL (0.01-0.034)
--- NOTE | 2025-06-17 17:24 | ED.GENADULT ---
HPI - General Adult General Chief complaint: Shortness of Breath/Dyspnea Stated complaint: Low Sodium and possible pneumonia Time Seen by Provider: 06/17/25 16:45 Mode of arrival: Ambulatory History of Present Illness HPI narrative: Patient has been recently treated for pneumonia with Augmentin. Still not feeling better feeling short of breath. Also has low sodium levels. Patient has history atrial fibrillation on Xarelto. Does have history of CHF as well. Patient is awake alert oriented x4. In no respiratory distress. No seizures. Denies abdominal pain. No chest pain. [facility] [place] [facility] [place]. Related Data Home Medications ?Medication ?Instructions ?Recorded ?Confirmed albuterol sulfate 90 mcg/actuation 2 puff inhalation Q4H PRN Wheezing 04/16/18 09/28/24 aerosol inhaler atenolol 50 mg tablet 50 mg PO QAM 04/16/18 10/06/24 loratadine 10 mg tablet 1 tab PO QAM 04/16/18 09/28/24 simvastatin 20 mg tablet 20 mg PO QAM 04/16/18 10/06/24 albuterol sulfate 0.63 mg/3 mL 0.63 mg inhalation Q4H PRN 12/28/18 09/28/24 solution for nebulization Shortness Of Breath Or Wheezing fluticasone 250 mcg-salmeterol 50 1 inh inhalation BID 12/28/18 09/28/24 mcg/dose blistr powdr for inhalation (Advair Diskus) furosemide 40 mg tablet 40 mg PO QAM 05/19/19 10/06/24 ferrous sulfate 324 mg (65 mg 324 mg PO QAM 09/28/24 09/28/24 iron) tablet,delayed release lidocaine 5 % topical patch 1 patch topical DAILY PRN hip pain 09/28/24 09/28/24 lisinopril 40 mg tablet 40 mg PO QAM 09/28/24 10/06/24 rivaroxaban 20 mg tablet (Xarelto) 20 mg PO DAILY 09/28/24 10/06/24 Previous Rx's ?Medication ?Instructions ?Recorded acetaminophen 325 mg tablet 650 mg (2 x 325 mg) PO Q6HR PRN 05/10/19 Pain, Mild (1-3) #35 tabs cyclobenzaprine 10 mg tablet 10 mg PO TID PRN muscle spasm #20 12/12/19 tabs docusate sodium 100 mg capsule 100 mg PO BID PRN Constipation #30 10/07/24 caps ondansetron 4 mg disintegrating 4 mg PO Q4-8H PRN Nausea #10 tabs 10/07/24 tablet oxycodone 5 mg tablet 5 mg PO Q4-6H PRN Pain, Moderate 10/07/24 (4-6) #30 tabs Allergies Allergy/AdvReac Type Severity Reaction Status Date / Time No Known Drug Allergies Allergy Verified 06/17/25 14:37 Review of Systems Review of Systems Narrative: GENERAL: Negative chills, fatigue, malaise, fever, sweats. HEENT: Negative sinus pain, ear pain, sore throat RESPIRATORY: Positive dyspnea, cough CARDIOVASCULAR: Negative chest pain, palpitations GASTROINTESTINAL: Negative vomiting, nausea, abdominal pain : Negative dysuria, frequency, hematuria MUSCULOSKELETAL: Negative muscle or bony pain SKIN: Negative rash, skin lesions NEUROLOGIC: Negative weakness, numbness ROS Unobtainable: All systems reviewed & are unremarkable except as noted in HPI and below Patient History Medical History (Updated 06/17/25 @ 17:42 by Carlos Cedillo MD) Asthma Back pain Arthritis Skin cancer Leg fracture, left Edema Sleep apnea with use of continuous positive airway pressure (CPAP) Hearing impaired RLS (restless legs syndrome) TIA (transient ischemic attack) (~2018) Atrial fibrillation Hyperlipidemia Hypertension Diabetes Surgical History Hx of hemorrhoidectomy (~1969) History of surgery History of tonsillectomy and adenoidectomy (~1939) H/O: hysterectomy Hx of bilateral cataract extraction Family History Mother Diabetes mellitus Myocardial infarction Father Diabetes mellitus Social History household members: children Smoking Status: Never smoker alcohol intake: current Smoking Status: Never smoker alcohol intake frequency: other Exam Narrative Exam Narrative: GENERAL: in no distress, not toxic not dyspneic HEAD: Normocephalic. EYES: Pupils equal round ENT: Mucous membranes moist. NECK: Trachea midline. CARDIOVASCULAR: Irregular irregular rate and rhythm RESPIRATORY: Clear to auscultation. Breath sounds equal bilaterally. No wheezes, rales, or rhonchi. Speaking full sentences no respiratory distress. GASTROINTESTINAL: Abdomen soft, non-tender EXTREMITIES: No gross deformities. No ankle pedal edema. Calf is nontender. BACK: No flank tenderness. NEURO: AOx4. Clear speech SKIN: Warm and dry PSYCH: Not anxious, is cooperative Initial Vital Signs Initial Vital Signs: Vital Signs Temperature 97.6 F 06/17/25 14:37 Pulse Rate 50 L 06/17/25 14:37 Respiratory Rate 16 06/17/25 14:37 Blood Pressure 190/79 H 06/17/25 14:37 Pulse Oximetry 98 06/17/25 14:37 Oxygen Delivery Method Room Air 06/17/25 14:37 Course Orders Ordered: ED Orders 06/17/25 14:45 XR chest 1V Stat EKG-12 Lead Stat 06/17/25 15:10 Complete Blood Count AUTO DIFF Stat 06/17/25 16:14 Comprehensive Metabolic Panel Stat Lipase Stat Magnesium Stat NT-proBNP (BNP-Adult 18+) Stat PTT Partial Thromboplastin Julien Stat Prothrombin Time INR Stat Troponin & CK Cardiac Panel Stat 06/17/25 17:24 Troponin I Stat 06/17/25 19:11 Blood Culture Stat CMP [Comprehensive Metabolic Panel] Stat Lactate (Lactic Acid) Stat Procalcitonin Stat Acetaminophen (Acetaminophen 325 Mg Tablet) 650 mg PO Q6H PRN PRN Reason: Fever/Mild Pain (1-3) Hydrocodone Bitart/Acetaminophen (Hydrocodone/Acet 5/325 Tablet) 1 tab PO Q4H PRN PRN Reason: Pain, Moderate (4-6) Amlodipine Besylate (Amlodipine 5 Mg Tablet) 5 mg PO BID ANGELES Sodium Chloride (Normal Saline 0.9%) 1,000 mls @ 100 mls/hr IV CONT ANGELES Ceftriaxone Sodium 1,000 mg/ (Sodium Chloride) 100 mls @ 200 mls/hr IV Q24H ANGELES Doxycycline Hyclate 100 mg/ (Sodium Chloride) 100 mls @ 100 mls/hr IV Q12H ANGELES Naloxone HCl (Naloxone 0.4 Mg/Ml Vial) 0.2 mg IV Q2MIN PRN PRN Reason: Opiate Reversal Discontinued Medications Aspirin (Aspirin 81 Mg Chew Tab) 324 mg PO NOW ONE Stop: 06/17/25 14:46 Last Admin: 06/17/25 15:03 Dose: 324 mg Documented By: KAIDEN Sodium Chloride (Normal Saline 0.9%) 1,000 mls @ 1,000 mls/hr IV BOLUS ONE Stop: 06/17/25 17:18 Last Infusion: 06/17/25 17:54 Dose: Infused Documented By: Admin: 06/17/25 16:21 Dose: 1,000 mls/hr Documented By: JESISCA Ceftriaxone Sodium 2,000 mg/ (Sodium Chloride) 100 mls @ 200 mls/hr IV NOW ONE Stop: 06/17/25 17:34 Last Admin: 06/17/25 17:53 Dose: 200 mls/hr Documented By: ANDI Vital Signs Vital signs: Vital Signs - 8 hr 06/17/25 14:37 Temperature 97.6 F Pulse Rate 50 L Respiratory Rate 16 Blood Pressure 190/79 H Pulse Oximetry 98 Oxygen Delivery Method Room Air Medical Decision Making Lab Data 06/17/25 15:10 06/17/25 19:11 Labs: Lab Results 06/17/25 06/17/25 06/17/25 Range/Units 15:10 16:14 16:14 WBC 14.3 H (4.5-11.0) X10^3/uL RBC 3.97 L (4.0-5.2) X10^6/uL Hgb 10.6 L (12.0-16.0) g/dL Hct 32.5 L (36-46) % MCV 81.7 (80-100) fL MCH 26.7 (26-34) PG MCHC 32.7 (30-36) % RDW 15.0 H (11.6-14.8) % Plt Count 358 (150-400) X10^3/uL Neut % (Auto) 83.8 H (50-75) % Lymph % (Auto) 8.8 L (25-40) % [place] % (Auto) 6.4 (3-14) % Eos % (Auto) 0.7 L (2-4) % Baso % (Auto) 0.3 (0-2) % Neut # (Auto) 06347 H (3407-4809) /uL Lymph # (Auto) 1300 (7966-5102) /uL [place] # (Auto) 900 (0-900) /uL Eos # (Auto) 100 (0-450) /uL Baso # (Auto) 0 (0-100) /uL PT 18.9 H (9.4-12.5) SECONDS INR 1.7 H (0.9-1.3) APTT 45 H (25.1-36.5) SECONDS Sodium 118 L* (137-145) mmol/L Potassium 5.4 H (3.4-5.1) mmol/L Chloride 87 L (98-107) mmol/L Carbon Dioxide 21 L (22-32) mmol/L BUN 44 H (7-17) mg/dL Creatinine 0.88 (0.52-1.04) mg/dL Estimated GFR > 60 (>60) mL/min BUN/Creatinine Ratio 50.0 H (6-22) Glucose 112 H (70-99) mg/dL Calcium 9.1 (8.4-10.2) mg/dL Magnesium 1.9 Cancelled (1.6-2.3) mg/dL Total Bilirubin 0.4 (0.2-1.3) mg/dL AST 39 H (14-36) IU/L ALT 37 H (<35) IU/L Alkaline Phosphatase 145 H (38-126) U/L Total Creatine Kinase 59 (30-135) U/L Troponin I < 0.012 (0.01-0.034) ng/mL NT-Pro-B Natriuret Pep 6610 H (<450) pg/mL Total Protein 7.3 (6.3-8.2) g/dL Albumin 3.9 (3.5-5.0) g/dL Globulin 3.4 (1.7-4.1) g/dL Albumin/Globulin Ratio 1.1 (1.0-2.8) Lipase 538 H (23-300) U/L 06/17/25 Range/Units 17:24 WBC (4.5-11.0) X10^3/uL RBC (4.0-5.2) X10^6/uL Hgb (12.0-16.0) g/dL Hct (36-46) % MCV (80-100) fL MCH (26-34) PG MCHC (30-36) % RDW (11.6-14.8) % Plt Count (150-400) X10^3/uL Neut % (Auto) (50-75) % Lymph % (Auto) (25-40) % [place] % (Auto) (3-14) % Eos % (Auto) (2-4) % Baso % (Auto) (0-2) % Neut # (Auto) (3563-9210) /uL Lymph # (Auto) (8019-6723) /uL [place] # (Auto) (0-900) /uL Eos # (Auto) (0-450) /uL Baso # (Auto) (0-100) /uL PT (9.4-12.5) SECONDS INR (0.9-1.3) APTT (25.1-36.5) SECONDS Sodium (137-145) mmol/L Potassium (3.4-5.1) mmol/L Chloride (98-107) mmol/L Carbon Dioxide (22-32) mmol/L BUN (7-17) mg/dL Creatinine (0.52-1.04) mg/dL Estimated GFR (>60) mL/min BUN/Creatinine Ratio (6-22) Glucose (70-99) mg/dL Calcium (8.4-10.2) mg/dL Magnesium (1.6-2.3) mg/dL Total Bilirubin (0.2-1.3) mg/dL AST (14-36) IU/L ALT (<35) IU/L Alkaline Phosphatase (38-126) U/L Total Creatine Kinase (30-135) U/L Troponin I < 0.012 (0.01-0.034) ng/mL NT-Pro-B Natriuret Pep (<450) pg/mL Total Protein (6.3-8.2) g/dL Albumin (3.5-5.0) g/dL Globulin (1.7-4.1) g/dL Albumin/Globulin Ratio (1.0-2.8) Lipase (23-300) U/L Imaging Data Chest x-ray: Radiologist's Impression: [address] [address] XRay Report Signed Patient: Lizy Gutierrez MR#: [id number] : 1935 Acct:[id number] Age/Sex: 89 / F Date of Service: 06/17/25 Loc: ED Accession Number: [id number] Procedure: XR chest 1V Ordering Provider: Carlos Cedillo MD PROCEDURE: XR CHEST 1V INDICATIONS: Chest Pain TECHNIQUE: One view of the chest was acquired. COMPARISON: [facility], CR, XR CHEST 1V, 12/28/2018, 18:46. [facility], CR, XR CHEST 1V, 04/16/2018, 17:10. FINDINGS: Surgical changes and devices: None. Lungs and pleura: Diffuse interstitial opacities and peribronchial cuffing. Streaky left perihilar opacity. Mediastinum: Mediastinal contours appear normal. Heart size is enlarged. Bones and chest wall: No suspicious bony lesions. Overlying soft tissues appear unremarkable. IMPRESSION: [id number] pulmonary edema. Streaky left perihilar opacity could represent atelectasis or aspiration. Dictated by: Jesus Kearney M.D. on 06/17/2025 at 15:02 Approved by: Jesus Kearney M.D. on 06/17/2025 at 15:03 [facility] Narrative Medical decision making narrative: Patient has been recently treated for pneumonia with Augmentin. Still not feeling better feeling short of breath. Also has low sodium levels. Patient has history atrial fibrillation on Xarelto. Does have history of CHF as well. Patient is awake alert oriented x4. In no respiratory distress. No seizures. Denies abdominal pain. No chest pain. Primary care is on the [address] [facility]. MDM After history and exam, CBC CMP procalcitonin lactic acid blood culture Rocephin doxycycline chest x-ray BNP troponin EKG Differential considered: Includes but not limited to pneumonia bronchitis renal failure fluid overload CHF Medical records reviewed: No recent visit for this complaint Lab Test results independently reviewed as above. Pertinent findings: WBC 14.3 hemoglobin 10.6 sodium 118 potassium 5.4 bicarb 21 BUN 44 creatinine 0.88 GFR greater than 60 INR 1.7 BNP 6610 troponin less than 0.012 Independently reviewed EKG atrial fibrillation rate 50 Imaging studies independently reviewed: Chest x-ray pneumonia versus CHF Consultations: 5:40 p.m.. Spoke with hospitalist, dr cullen, will admit Re-evaluations: 5:30 p.m.. Updated patient results. Agrees for admission for hyponatremia pneumonia. Discussion: Appropriate for admission. Exam is reassuring. Clinically patient not in congestive heart failure. Lung sounds are clear no pedal edema. Antibiotics have been started. Hospitalist will admit for hyponatremia. No seizures during course of stay. Diagnosis: Hyponatremia/pneumonia Discharge Plan Departure Patient Disposition: Admitted as Observation Clinical Impression: Acute hyponatremia Dyspnea Qualifiers: Dyspnea type: unspecified Qualified Code(s): R06.00 - Dyspnea, unspecified Admit Date/Time: 06/17/25 17:42 Admit Provider: Ron Cullen
[2025-06-17] MEDS: cefTRIAXone 2,000 MG in SODIUM CHLORIDE 0.9% 100 ML 200 MG IV (17:53)
[2025-06-17 18:00] VITALS: BP 202/79; PULSE 55; RESP 16; O2SAT 97
[2025-06-17 18:13] LABS: Troponin I < 0.012 ng/mL (0.01-0.034)
--- NOTE | 2025-06-17 18:37 | PM.HP.1 ---
History of Present Illness History of Present Illness Date Patient Seen: 06/17/25 Chief complaint: Low Sodium and possible pneumonia Narrative: Chief complaint: Recurrent pneumonia with chronic cough malaise fatigue lethargy and hyponatremia 118 History of present illness 06/17: 89-year-old female with productive cough treated outpatient with Augmentin orally but still feeling short of breath and lethargy had a follow up appointment with laboratory testing on an outpatient basis side to be hyponatremic and recommended to become evaluated in the emergency department. 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 Suspect BNP of 6000 is due to atrial dilation from endotoxin and not from fluid overload IV normal saline to repletion of sodium Monitor serum sodium q.6 hours goal of repeating to sodium of 126 in 12 hours Stop lisinopril Norvasc 5 mg q.12 hours for hypertension Rocephin and azithromycin Sputum cultures Blood culture Echocardiogram Chronic atrial fibrillation: Continue rate control with atenolol and CVA prophylaxis with Xarelto DVT prophylaxis: Covered with Xarelto Code status: Full code blue 55 minutes for required evaluation of this patient included [id number] evaluation discussion with patient and daughter discussion with ER physician review of records objective laboratory and imaging findings including direct review of imaging myself [facility] Medical History (Updated 06/17/25 @ 17:42 by Carlos Cedillo MD) Asthma Back pain Arthritis Skin cancer Leg fracture, left Edema Sleep apnea with use of continuous positive airway pressure (CPAP) Hearing impaired RLS (restless legs syndrome) TIA (transient ischemic attack) (~2017) Atrial fibrillation Hyperlipidemia Hypertension Diabetes Surgical History Hx of hemorrhoidectomy (~1968) History of surgery History of tonsillectomy and adenoidectomy (~1939) H/O: hysterectomy Hx of bilateral cataract extraction Family History Mother Diabetes mellitus Myocardial infarction Father Diabetes mellitus Social History household members: none Smoking Status: Never smoker alcohol intake: current Meds Home Medications and Allergies Home Medications ?Medication ?Instructions ?Recorded ?Confirmed ?Type albuterol sulfate 90 mcg/actuation 2 puff inhalation Q4H PRN Wheezing 04/16/18 09/28/24 History aerosol inhaler atenolol 50 mg tablet 50 mg PO QAM 04/16/18 10/06/24 History loratadine 10 mg tablet 1 tab PO QAM 04/16/18 09/28/24 History simvastatin 20 mg tablet 20 mg PO QAM 04/16/18 10/06/24 History albuterol sulfate 0.63 mg/3 mL 0.63 mg inhalation Q4H PRN 12/28/18 09/28/24 History solution for nebulization Shortness Of Breath Or Wheezing fluticasone 250 mcg-salmeterol 50 1 inh inhalation BID 12/28/18 09/28/24 History mcg/dose blistr powdr for inhalation (Advair Diskus) acetaminophen 325 mg tablet 650 mg (2 x 325 mg) PO Q6HR PRN 05/10/19 09/28/24 Rx Pain, Mild (1-3) #35 tabs furosemide 40 mg tablet 40 mg PO QAM 05/19/19 10/06/24 History cyclobenzaprine 10 mg tablet 10 mg PO TID PRN muscle spasm #20 12/12/19 09/28/24 Rx tabs ferrous sulfate 324 mg (65 mg 324 mg PO QAM 09/28/24 09/28/24 History iron) tablet,delayed release lidocaine 5 % topical patch 1 patch topical DAILY PRN hip pain 09/28/24 09/28/24 History lisinopril 40 mg tablet 40 mg PO QAM 09/28/24 10/06/24 History rivaroxaban 20 mg tablet (Xarelto) 20 mg PO DAILY 09/28/24 10/06/24 History docusate sodium 100 mg capsule 100 mg PO BID PRN Constipation #30 10/07/24 Rx caps ondansetron 4 mg disintegrating 4 mg PO Q4-8H PRN Nausea #10 tabs 10/07/24 Rx tablet oxycodone 5 mg tablet 5 mg PO Q4-6H PRN Pain, Moderate 10/07/24 Rx (4-6) #30 tabs Allergies Allergy/AdvReac Type Severity Reaction Status Date / Time No Known Drug Allergies Allergy Verified 06/17/25 14:37 Exam Vital Signs (past 8 hours): - 06/17/25 14:37 Temperature 97.6 F Pulse Rate 50 L Respiratory Rate 16 Blood Pressure 190/79 H Pulse Oximetry 98 Oxygen Delivery Method Room Air Oxygen Delivery Method Room Air Objective Labs 06/17/25 15:10 06/17/25 16:14 Labs: Laboratory Results - last 24 hr 06/17/25 06/17/25 06/17/25 15:10 16:14 16:14 WBC 14.3 H RBC 3.97 L Hgb 10.6 L Hct 32.5 L MCV 81.7 MCH 26.7 MCHC 32.7 RDW 15.0 H Plt Count 358 Neut % (Auto) 83.8 H Lymph % (Auto) 8.8 L [place] % (Auto) 6.4 Eos % (Auto) 0.7 L Baso % (Auto) 0.3 Neut # (Auto) 91609 H Lymph # (Auto) 1300 [place] # (Auto) 900 Eos # (Auto) 100 Baso # (Auto) 0 PT 18.9 H INR 1.7 H APTT 45 H Sodium 118 L* Potassium 5.4 H Chloride 87 L Carbon Dioxide 21 L BUN 44 H Creatinine 0.88 Estimated GFR > 60 BUN/Creatinine Ratio 50.0 H Glucose 112 H Calcium 9.1 Magnesium 1.9 Cancelled Total Bilirubin 0.4 AST 39 H ALT 37 H Alkaline Phosphatase 145 H Total Creatine Kinase 59 Troponin I < 0.012 NT-Pro-B Natriuret Pep 6610 H Total Protein 7.3 Albumin 3.9 Globulin 3.4 Albumin/Globulin Ratio 1.1 Lipase 538 H 06/17/25 17:24 WBC RBC Hgb Hct MCV MCH MCHC RDW Plt Count Neut % (Auto) Lymph % (Auto) [place] % (Auto) Eos % (Auto) Baso % (Auto) Neut # (Auto) Lymph # (Auto) [place] # (Auto) Eos # (Auto) Baso # (Auto) PT INR APTT Sodium Potassium Chloride Carbon Dioxide BUN Creatinine Estimated GFR BUN/Creatinine Ratio Glucose Calcium Magnesium Total Bilirubin AST ALT Alkaline Phosphatase Total Creatine Kinase Troponin I < 0.012 NT-Pro-B Natriuret Pep Total Protein Albumin Globulin Albumin/Globulin Ratio Lipase Assessment & Plan Time-Based Coding :: [TOTAL MINUTES] spent with patient and on the chart (including review of chart, obtaining history, exam, reviewing outside data, placing orders, documenting exam and treatment plan, and counseling patient) on [DATE].
[2025-06-17 19:00] VITALS: BP 212/91; PULSE 59; RESP 16; O2SAT 93; O2SAT 97
--- NOTE | 2025-06-17 19:10 | CM.DANOTE ---
ED RESPIRATORY THERAPY INSTRUCTOR DCP Assessment Note: Pt is a 89yo female, resident of [place], is admitted for pneumonia and hyponatremia. Pt lives in a house alone but her family (daughter and granddaughter) lives on the same property. Pt's Primary Care Provider is Dr. Lisbeth Machado DO ([facility]) and insurance is [employer] Medicare. Reviewed chart and discussed with multidisciplinary team pt's medical status and initial discharge needs. ED RESPIRATORY THERAPY INSTRUCTOR met w/patient at bedside; introduced self and role. Patient was found in bed, alert and oriented, cooperative with assessment. Pt confirmed living situation and good support in daughter and granddaughter. Granddaughter, To, is at bedside. Pt expressed preference in discharging home when medically cleared; states she is moderately independent with ADLs with support from her daughter and granddaughter. Pt has no hx of home health or SNF Rehab. Plan: Acute care admission, anticipating IV abx and corrective intervention for hyponatremia before dc home with family. CM team will follow closely for coordination of discharge plans. Sylvie Capone [facility] Discharge Planning/Care Management CM Discharge Assessment Start: 06/17/25 18:00 Freq: Status: Active Protocol: Document 06/17/25 19:08 MW (Rec: 06/17/25 19:10 MW [id number]) Discharge Planning Assessment Assigned Discharge DAISY Mercer Poll Watcher DPOA/Assigned Daniel Contreras Designee Name Contact Information [phone] Advance Directives? Yes Advance Directives No on File History Provided By Patient,Medical Record Has Patient been No admitted in last 30 days? Prior Living House Arrangements Household Members children Type of Relies on Others transporation used prior to admit Independent with ADL No 's Is patient alert and Yes oriented? Needs Assistance Bathing,Grooming,Meal Prep,Managing Medications,Home With Chores / Shopping Caregiver for No Another DME Already Rented / Elevated Toilet Seat,FWW / Walker,Nebulizer Owned Patient/Family Home with Home Health Preference Discharge Plan Home Transportation Daughter Arrangement Referrals Initiated None needed Review Status In Process Please Provide Date 06/17/25 Initial DC Assessment Was Performed Next Review Type Continued Stay Review
[2025-06-17 19:32] LABS: Lactate (Lactic Acid) 0.7 mmol/L (0.7-2.1)
[2025-06-17 19:33] LABS: Alanine Aminotransferase 77 IU/L (<35); Albumin 3.8 g/dL (3.5-5.0); Albumin Globulin Ratio 1.1 (1.0-2.8); Alkaline Phosphatase 199 U/L (38-126); Blood Urea Nitrogen 42 mg/dL (7-17); Calcium 8.8 mg/dL (8.4-10.2); Carbon Dioxide 23 mmol/L (22-32); Chloride 90 mmol/L (98-107); Estimated Glomerular Filt Rate > 60 mL/min (>60); Globulin 3.5 g/dL (1.7-4.1); Glucose 114 mg/dL (70-99); HEMOLYSIS < 15 (0-50); Potassium 5.2 mmol/L (3.4-5.1); Sodium 121 mmol/L (137-145); Total Protein 7.3 g/dL (6.3-8.2)
[2025-06-17 19:49] LABS: Procalcitonin 0.117 ng/mL (<0.5)
[2025-06-17 19:55] VITALS: BP 185/79; PULSE 59; RESP 17; O2SAT 97
[2025-06-17 20:30] VITALS: BP 198/62; PULSE 52; RESP 21; TEMP 36.1; O2SAT 96
[2025-06-17] MEDS: DOXYCYCLINE 100 MG in SODIUM CHLORIDE 0.9% 100 ML IV (21:14)
[2025-06-17 21:15] VITALS: BMI 27.5
[2025-06-17 22:16] LABS: Blood Urea Nitrogen 40 mg/dL (7-17); Calcium 8.8 mg/dL (8.4-10.2); Carbon Dioxide 22 mmol/L (22-32); Chloride 90 mmol/L (98-107); Estimated Glomerular Filt Rate > 60 mL/min (>60); Glucose 116 mg/dL (70-99); HEMOLYSIS < 15 (0-50); Potassium 4.8 mmol/L (3.4-5.1); Sodium 121 mmol/L (137-145)
[2025-06-17] MEDS: AMLODIPINE 5 MG TABLET PO (23:05)
[2025-06-18] VITALS (40 sets, daily range): BP systolic 137–178; BP diastolic 30–72; PULSE 34–68; RESP 14–37; TEMP 36.1–36.6; O2SAT 95–98
--- NOTE | 2025-06-18 00:17 | EKG_ITS ---
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
--- NOTE | 2025-06-18 02:41 | PC.NURSE ---
Addendum entered by Ann Marie Mcdermott R.N. 06/18/25 02:48: 2355: Heart rate dropping into the high 30's, asymptomatic. BP 135/70. Dr. Carrillo notified, ordered EKG. After reviewing EKG, he ordered to transfer to the ICU. 00:45: Transferred to ICU. Original Note: Admitted to ACU at 19:40. Alert and oriented x 4, denies pain. Oriented to room and call light. Call light within reach.
[2025-06-18] MEDS: ATROPINE 0.4 MG/ML VIAL 0.25 MG IV (03:14)
[2025-06-18 06:12] LABS: Add Manual Diff / Slide Review NO; Hematocrit 28.8 % (36-46); Hemoglobin 9.7 g/dL (12.0-16.0); Lymphocytes Absolute Auto 1300 /uL (1100-4500); Mean Corpuscular HGB Conc 33.6 % (30-36); Mean Corpuscular Hemoglobin 27.2 PG (26-34); Mean Corpuscular Volume 80.9 fL (80-100); Platelet Count 336 X10^3/uL (150-400)
[2025-06-18 06:23] LABS: Blood Urea Nitrogen 36 mg/dL (7-17); Calcium 8.5 mg/dL (8.4-10.2); Carbon Dioxide 21 mmol/L (22-32); Chloride 92 mmol/L (98-107); Estimated Glomerular Filt Rate > 60 mL/min (>60); Glucose 86 mg/dL (70-99); HEMOLYSIS < 15 (0-50); Potassium 4.7 mmol/L (3.4-5.1)
[2025-06-18 06:25] LABS: Sodium 119 mmol/L (137-145)
[2025-06-18] MEDS: ALBUTEROL 2.5 MG/3 ML NEB (ADULT) INH ×4 (07:49→19:36)
[2025-06-18] MEDS: BUDESONIDE 0.5 MG/2 ML NEB INH ×2 (07:49→19:36)
[2025-06-18] MEDS: FUROSEMIDE 40 MG/4 ML VIAL IV ×2 (08:06→20:12)
[2025-06-18] MEDS: AMLODIPINE 5 MG TABLET PO ×2 (08:13→20:53)
[2025-06-18] MEDS: RIVAROXABAN 10 MG TABLET 20 MG PO (08:13)
[2025-06-18] MEDS: FERROUS SULFATE 325 MG TABLET PO (08:13)
[2025-06-18] MEDS: ATORVASTATIN 20 MG TABLET 10 MG PO (08:13)
[2025-06-18] MEDS: DOXYCYCLINE 100 MG in SODIUM CHLORIDE 0.9% 100 ML IV ×2 (08:22→20:14)
[2025-06-18] MEDS: BENZONATATE 100 MG CAPSULE PO (10:02)
[2025-06-18] MEDS: SODIUM CHLORIDE 0.9% 1,000 ML 75 ML IV (10:52)
--- NOTE | 2025-06-18 14:21 | PM.PN.IH.1 ---
Subjective Subjective Date Patient Seen: 06/18/25 Time Patient Seen: 09:10 Interval history: HPI: 89-year-old female with productive cough treated outpatient with Augmentin orally but still feeling short of breath and lethargy had a follow up appointment with laboratory testing on an outpatient basis side to be hyponatremic and recommended to become evaluated in the emergency department. In the emergency room following fine and pertinent findings White count [id number], sodium of 118, bilateral streaky infiltrates on lower lobes on chest x-ray pro BNP of 6000 systolic blood pressure of 200 Hospital course: 06/18: The patient reports feeling better with improved but persistent cough, and improved breathing with persistent mild shortness breath and lethargy. Sodium 119 this morning. Exam Vital Signs (past 8 hours): - 06/18/25 07:00 06/18/25 07:00 06/18/25 07:49 Temperature Pulse Rate 56 L Respiratory Rate 20 Blood Pressure Pulse Oximetry 98 97 Oxygen Delivery Method Room Air CPAP Room Air Oxygen Flow Rate 06/18/25 08:00 06/18/25 11:00 06/18/25 11:39 Temperature 97 F L Pulse Rate 50 L Respiratory Rate 22 Blood Pressure Pulse Oximetry 96 Oxygen Delivery Method CPAP Room Air Oxygen Flow Rate 06/18/25 12:00 06/18/25 12:00 06/18/25 12:41 Temperature 97.8 F 97.6 F Pulse Rate 54 L 51 L Respiratory Rate 16 23 Blood Pressure 160/65 H Pulse Oximetry 97 Oxygen Delivery Method Oxygen Flow Rate 0 06/18/25 13:00 06/18/25 13:01 06/18/25 13:01 Temperature Pulse Rate 51 L 51 L Respiratory Rate 17 20 Blood Pressure 162/63 H Pulse Oximetry 98 97 Oxygen Delivery Method Oxygen Flow Rate 06/18/25 13:30 Temperature Pulse Rate 48 L Respiratory Rate 23 Blood Pressure Pulse Oximetry 96 Oxygen Delivery Method Oxygen Flow Rate Oxygen Delivery Method Room Air Oxygen Flow Rate 0 Narrative Exam Narrative: Very pleasant female in no acute distress HEENT unremarkable Neck no carotid bruits Heart rate and rhythm irregular heart sounds distant Lungs clear upper 1/3 bibasilar rales notable Extremities no edema Abdomen benign Objective Imaging Chest x-ray 06/17/2025:: Radiologist's impression: [id number] pulmonary edema. Streaky left perihilar opacity could represent atelectasis or aspiration. Labs 06/18/25 05:00 06/18/25 05:00 Labs: Laboratory Results - last 24 hr 06/17/25 06/17/25 06/17/25 15:10 16:14 16:14 WBC 14.3 H RBC 3.97 L Hgb 10.6 L Hct 32.5 L MCV 81.7 MCH 26.7 MCHC 32.7 RDW 15.0 H Plt Count 358 Neut % (Auto) 83.8 H Lymph % (Auto) 8.8 L [place] % (Auto) 6.4 Eos % (Auto) 0.7 L Baso % (Auto) 0.3 Neut # (Auto) 38571 H Lymph # (Auto) 1300 [place] # (Auto) 900 Eos # (Auto) 100 Baso # (Auto) 0 PT 18.9 H INR 1.7 H APTT 45 H Sodium 118 L* Potassium 5.4 H Chloride 87 L Carbon Dioxide 21 L BUN 44 H Creatinine 0.88 Estimated GFR > 60 BUN/Creatinine Ratio 50.0 H Glucose 112 H Lactate Calcium 9.1 Magnesium 1.9 Cancelled Total Bilirubin 0.4 AST 39 H ALT 37 H Alkaline Phosphatase 145 H Total Creatine Kinase 59 Troponin I < 0.012 NT-Pro-B Natriuret Pep 6610 H Total Protein 7.3 Albumin 3.9 Globulin 3.4 Albumin/Globulin Ratio 1.1 Lipase 538 H Procalcitonin 06/17/25 06/17/25 06/17/25 17:24 19:11 21:50 WBC RBC Hgb Hct MCV MCH MCHC RDW Plt Count Neut % (Auto) Lymph % (Auto) [place] % (Auto) Eos % (Auto) Baso % (Auto) Neut # (Auto) Lymph # (Auto) [place] # (Auto) Eos # (Auto) Baso # (Auto) PT INR APTT Sodium 121 L 121 L Potassium 5.2 H 4.8 Chloride 90 L 90 L Carbon Dioxide 23 22 BUN 42 H 40 H Creatinine 0.85 0.75 Estimated GFR > 60 > 60 BUN/Creatinine Ratio 49.4 H 53.3 H Glucose 114 H 116 H Lactate 0.7 Calcium 8.8 8.8 Magnesium Total Bilirubin 0.3 AST 101 H ALT 77 H Alkaline Phosphatase 199 H Total Creatine Kinase Troponin I < 0.012 NT-Pro-B Natriuret Pep Total Protein 7.3 Albumin 3.8 Globulin 3.5 Albumin/Globulin Ratio 1.1 Lipase Procalcitonin 0.117 06/18/25 05:00 WBC 10.3 RBC 3.56 L Hgb 9.7 L Hct 28.8 L MCV 80.9 MCH 27.2 MCHC 33.6 RDW 14.8 Plt Count 336 Neut % (Auto) 77.6 H Lymph % (Auto) 12.9 L [place] % (Auto) 7.7 Eos % (Auto) 1.4 L Baso % (Auto) 0.4 Neut # (Auto) 8000 H Lymph # (Auto) 1300 [place] # (Auto) 800 Eos # (Auto) 100 Baso # (Auto) 0 PT INR APTT Sodium 119 L* Potassium 4.7 Chloride 92 L Carbon Dioxide 21 L BUN 36 H Creatinine 0.76 Estimated GFR > 60 BUN/Creatinine Ratio 47.4 H Glucose 86 Lactate Calcium 8.5 Magnesium Total Bilirubin AST ALT Alkaline Phosphatase Total Creatine Kinase Troponin I NT-Pro-B Natriuret Pep Total Protein Albumin Globulin Albumin/Globulin Ratio Lipase Procalcitonin PFSH Medical History Arthritis Asthma Atrial fibrillation Back pain Diabetes Edema Hearing impaired Hyperlipidemia Hypertension Leg fracture, left RLS (restless legs syndrome) Skin cancer Sleep apnea with use of continuous positive airway pressure (CPAP) TIA (transient ischemic attack) (~2018) Surgical History H/O: hysterectomy History of surgery History of tonsillectomy and adenoidectomy (~1939) Hx of bilateral cataract extraction Hx of hemorrhoidectomy (~1969) Family History Mother Diabetes mellitus Myocardial infarction Father Diabetes mellitus Social History household members: children and none Smoking Status: Never smoker alcohol intake: current Assessment & Plan Assessment & Plan narrative: Pneumonia in this patient with cellular loss hyponatremia combination of insensible loss together with dehydration and depletion. Suspect BNP of 6000 is due to atrial dilation from endotoxin and not from fluid overload IV normal saline furosemide 40mg IV Monitor serum sodium q.6 hours goal of repeating to sodium of 126 in 12 hours Stop lisinopril amlodipine 5 mg q.12 hours for hypertension Rocephin and azithromycin Sputum cultures Blood culture Echocardiogram Chronic atrial fibrillation: Continue rate control with atenolol and CVA prophylaxis with Xarelto DVT prophylaxis: Covered with Xarelto Code status: Full code Quality VTE Deep Vein Thrombosis/Pulmonary Embolism Present on Admission: No [facility]H PROFEE Sub Acute Care Nurse Document charge(s): No Charge Codes Subsequent inpatient/observation care: 70710
[2025-06-18 16:10] LABS: Blood Urea Nitrogen 35 mg/dL (7-17); Calcium 8.5 mg/dL (8.4-10.2); Carbon Dioxide 21 mmol/L (22-32); Chloride 91 mmol/L (98-107); Estimated Glomerular Filt Rate > 60 mL/min (>60); Glucose 116 mg/dL (70-99); HEMOLYSIS 17 (0-50); Potassium 4.9 mmol/L (3.4-5.1); Sodium 120 mmol/L (137-145)
[2025-06-18 23:10] LABS: Blood Urea Nitrogen 32 mg/dL (7-17); Calcium 8.4 mg/dL (8.4-10.2); Carbon Dioxide 21 mmol/L (22-32); Chloride 92 mmol/L (98-107); Estimated Glomerular Filt Rate > 60 mL/min (>60); Glucose 117 mg/dL (70-99); HEMOLYSIS < 15 (0-50); Potassium 4.4 mmol/L (3.4-5.1); Sodium 121 mmol/L (137-145)
[2025-06-19] VITALS (65 sets, daily range): BP systolic 120–187; BP diastolic 60–83; PULSE 45–78; RESP 14–70; TEMP 35.5; O2SAT 93–99
[2025-06-19] MEDS: SODIUM CHLORIDE 0.9% 1,000 ML 75 ML IV (00:18)
[2025-06-19] MEDS: DOXYCYCLINE 100 MG in SODIUM CHLORIDE 0.9% 100 ML IV ×2 (06:54→18:36)
--- NOTE | 2025-06-19 07:00 | PC.NURSE ---
Noted pt's left eye is blood shot, pt. is not c/o discomfort or pain, cold pack applied.
[2025-06-19 07:39] LABS: Add Manual Diff / Slide Review NO; Hematocrit 27.5 % (36-46); Hemoglobin 9.2 g/dL (12.0-16.0); Lymphocytes Absolute Auto 1700 /uL (1100-4500); Mean Corpuscular HGB Conc 33.5 % (30-36); Mean Corpuscular Hemoglobin 27.1 PG (26-34); Mean Corpuscular Volume 81.1 fL (80-100); Platelet Count 313 X10^3/uL (150-400)
[2025-06-19] MEDS: BUDESONIDE 0.5 MG/2 ML NEB INH ×2 (07:52→20:38)
[2025-06-19] MEDS: ALBUTEROL 2.5 MG/3 ML NEB (ADULT) INH ×3 (07:52→20:38)
[2025-06-19 08:06] LABS: Blood Urea Nitrogen 28 mg/dL (7-17); Calcium 8.4 mg/dL (8.4-10.2); Carbon Dioxide 20 mmol/L (22-32); Chloride 95 mmol/L (98-107); Estimated Glomerular Filt Rate > 60 mL/min (>60); Glucose 88 mg/dL (70-99); HEMOLYSIS < 15 (0-50); Potassium 4.4 mmol/L (3.4-5.1); Sodium 122 mmol/L (137-145)
[2025-06-19] MEDS: AMLODIPINE 5 MG TABLET PO ×2 (08:35→21:29)
[2025-06-19] MEDS: FERROUS SULFATE 325 MG TABLET PO (08:35)
[2025-06-19] MEDS: SODIUM CHLORIDE 0.9% FLUSH 10 ML IV (08:35)
[2025-06-19] MEDS: RIVAROXABAN 10 MG TABLET 20 MG PO (08:35)
[2025-06-19] MEDS: ATORVASTATIN 20 MG TABLET 10 MG PO (08:35)
[2025-06-19] MEDS: FUROSEMIDE 40 MG/4 ML VIAL IV (08:35)
[2025-06-19] MEDS: BENZONATATE 100 MG CAPSULE PO ×2 (08:40→18:36)
--- NOTE | 2025-06-19 11:28 | P.PN_ITS ---
Subjective Subjective Date Patient Seen: 06/19/25 Time Patient Seen: 07:56 Interval history: HPI: 89-year-old female with productive cough treated outpatient with Augmentin orally but still feeling short of breath and lethargy had a follow up appointment with laboratory testing on an outpatient basis side to be hyponatremic and recommended to become evaluated in the emergency department. In the emergency room following fine and pertinent findings White count 20654, sodium of 118, bilateral streaky infiltrates on lower lobes on chest x-ray pro BNP of 6000 systolic blood pressure of 200 Hospital course: 06/18: The patient reports feeling better with improved but persistent cough, and improved breathing with persistent mild shortness breath and lethargy. Sodium 119 this morning. 06/19: The patient has a left subconjunctival hemorrhage without vision changes. She thinks she is scratched her left eye. She reports persistent but improved cough and shortness of breath. Sodium 121 this morning. Exam Vital Signs (past 8 hours): - 06/19/25 03:30 06/19/25 04:00 06/19/25 04:00 Temperature Pulse Rate 54 L 52 L Respiratory Rate 43 H 27 H Blood Pressure Pulse Oximetry 96 96 Oxygen Delivery Method CPAP 06/19/25 04:28 06/19/25 04:28 06/19/25 04:30 Temperature Pulse Rate 59 L 54 L Respiratory Rate 21 29 H Blood Pressure 159/63 H Pulse Oximetry 96 96 Oxygen Delivery Method 06/19/25 05:00 06/19/25 05:04 06/19/25 05:04 Temperature Pulse Rate 48 L 53 L Respiratory Rate 28 H 25 H Blood Pressure 149/65 H Pulse Oximetry 95 96 Oxygen Delivery Method 06/19/25 05:30 06/19/25 06:00 06/19/25 06:04 Temperature Pulse Rate 50 L 57 L Respiratory Rate 29 H 25 H Blood Pressure 179/68 H Pulse Oximetry 94 94 Oxygen Delivery Method 06/19/25 06:04 06/19/25 06:30 06/19/25 06:53 Temperature 96 F L Pulse Rate 59 L 53 L Respiratory Rate 22 26 H Blood Pressure Pulse Oximetry 96 94 Oxygen Delivery Method 06/19/25 07:00 06/19/25 07:00 06/19/25 07:01 Temperature Pulse Rate 52 L Respiratory Rate 17 Blood Pressure 177/63 H Pulse Oximetry 96 96 Oxygen Delivery Method Room Air 06/19/25 07:01 06/19/25 07:30 06/19/25 07:53 Temperature Pulse Rate 50 L 60 68 Respiratory Rate 15 21 26 H Blood Pressure Pulse Oximetry 96 96 95 Oxygen Delivery Method Room Air 06/19/25 08:00 06/19/25 08:00 06/19/25 08:03 Temperature Pulse Rate 69 58 L Respiratory Rate 32 H 22 Blood Pressure Pulse Oximetry 95 96 Oxygen Delivery Method Room Air Room Air 06/19/25 08:30 06/19/25 09:00 06/19/25 09:01 Temperature Pulse Rate 58 L 76 71 Respiratory Rate 25 H 25 H 35 H Blood Pressure Pulse Oximetry 96 96 96 Oxygen Delivery Method 06/19/25 09:01 06/19/25 09:51 06/19/25 10:00 Temperature Pulse Rate 66 56 L Respiratory Rate 25 H 19 Blood Pressure 145/60 H Pulse Oximetry 96 97 Oxygen Delivery Method 06/19/25 10:01 06/19/25 10:01 Temperature Pulse Rate 58 L Respiratory Rate 18 Blood Pressure 144/65 H Pulse Oximetry 97 Oxygen Delivery Method Oxygen Delivery Method Room Air Oxygen Flow Rate 0 Narrative Exam Narrative: Very pleasant female in no acute distress HEENT prominent left subconjunctival hemorrhage, left periorbital ecchymosis. Visual acuity is intact in both eyes with full confrontational visual peña Neck no carotid bruits Heart rate and rhythm irregular heart sounds distant Lungs clear upper, 1/3 bibasilar rales notable Extremities no edema Abdomen benign Objective Imaging Chest x-ray 06/17/2025:: Radiologist's impression: [id number] pulmonary edema. Streaky left perihilar opacity could represent atelectasis or aspiration. Labs 06/19/25 07:15 06/19/25 07:15 Labs: Laboratory Results - last 24 hr 06/18/25 06/18/25 06/19/25 15:30 22:52 07:15 WBC 9.3 RBC 3.40 L Hgb 9.2 L Hct 27.5 L MCV 81.1 MCH 27.1 MCHC 33.5 RDW 15.2 H Plt Count 313 Neut % (Auto) 69.8 Lymph % (Auto) 17.8 L [place] % (Auto) 10.0 Eos % (Auto) 1.9 L Baso % (Auto) 0.5 Neut # (Auto) 6500 Lymph # (Auto) 1700 [place] # (Auto) 900 Eos # (Auto) 200 Baso # (Auto) 0 Sodium 120 L 121 L 122 L Potassium 4.9 4.4 4.4 Chloride 91 L 92 L 95 L Carbon Dioxide 21 L 21 L 20 L BUN 35 H 32 H 28 H Creatinine 0.76 0.81 0.79 Estimated GFR > 60 > 60 > 60 BUN/Creatinine Ratio 46.1 H 39.5 H 35.4 H Glucose 116 H 117 H 88 Calcium 8.5 8.4 8.4 PFSH Medical History Arthritis Asthma Atrial fibrillation Back pain Diabetes Edema Hearing impaired Hyperlipidemia Hypertension Leg fracture, left RLS (restless legs syndrome) Skin cancer Sleep apnea with use of continuous positive airway pressure (CPAP) TIA (transient ischemic attack) (~2017) Surgical History H/O: hysterectomy History of surgery History of tonsillectomy and adenoidectomy (~193) Hx of bilateral cataract extraction Hx of hemorrhoidectomy (~1968) Family History Mother Diabetes mellitus Myocardial infarction Father Diabetes mellitus Social History household members: children and none Smoking Status: Never smoker alcohol intake: current Assessment & Plan Assessment & Plan narrative: Pneumonia in this patient with cellular loss hyponatremia combination of insensible loss together with dehydration and depletion. Suspect BNP of 6000 is due to atrial dilation from endotoxin and not from fluid overload * IV normal saline increased from 75 mL to 100 mL/hour * furosemide 40mg IV * Monitor serum sodium daily at this point * Remain off lisinopril * amlodipine 5 mg q.12 hours for hypertension * Ceftriaxone and azithromycin * Sputum cultures negative today * Blood culture negative to date * Echocardiogram pending Chronic atrial fibrillation: * Continue rate control with atenolol and CVA prophylaxis with Xarelto DVT prophylaxis: * Covered with Xarelto Code status: * Full code Quality VTE Deep Vein Thrombosis/Pulmonary Embolism Present on Admission: No [facility] PROFEE [employer] Supervisor Document charge(s): No Charge Codes Subsequent inpatient/observation care: [id number]
--- NOTE | 2025-06-19 12:13 | DI.ECHO.S_ITS ---
[place] [facility] : : [address] : : [place] : : [id number] : : Phone: [phone] Echocardiogram Report + + :Name: JENNIFER DORANTES Study Date: 06/19/2025 Height: 60 in : :[facility] ReadingLocation: Weight: 141 lb : : Gender: Female BSA: 1.6 m2 : :: 1935 Age: 89 yrs BP: 173/64 mmHg: :Reason For Study: CHF : :Ordering Physician: FABIOLA, : :KORIN Performed By: Jazmyne Eason : :Referring: KORIN HICKS : + + Interpretation Summary The left ventricle is grossly normal size. The ejection fraction is estimated to be 65-70%. There is a significant dyssynchronous contraction pattern, consistent with a conduction abnormality. Diastolic function could not be accurately assessed due to atrial fibrillation. The right ventricular systolic function is normal. The right ventricular systolic pressure is estimated to be at least 71 mmHg based on an estimated right atrial pressure of 15 mm Hg. There is moderate mitral annular calcification. There is mild to moderate mitral regurgitation. There is mild to moderate tricuspid regurgitation. The aortic root is normal size. There is a small left-sided pleural effusion. Procedure: A two-dimensional transthoracic echocardiogram with color flow and Doppler was performed. The study was done portably. The study quality was technically adequate. Comparison is made with the echocardiogram of 12/29/2018. The patient was in atrial fibrillation with heart rates between 48-76 bpm during the exam. Left Ventricle: The left ventricle is grossly normal size. Left ventricular wall thickness is at the upper limits of normal. The ejection fraction is estimated to be 65-70%. There is a significant dyssynchronous contraction pattern, consistent with a conduction abnormality. Diastolic function could not be accurately assessed due to atrial fibrillation. Right Ventricle: RV base, minor and major measured 3.4 cm, 3.0 cm, and 5.2 cm respectively. This is decreased from 4.1 cm, 3.6 cm, and 5.3 cm recorded on prior exam. The right ventricular systolic function is normal. Atria: Both atria are moderately dilated. There is no Doppler evidence for an interatrial shunt. Mitral Valve: There is moderate mitral annular calcification. The mitral valve leaflets appear moderately thickened. There is mild to moderate mitral regurgitation. Aortic Valve: The aortic valve is trileaflet. The aortic valve opens well. The aortic valve is moderately calcified. There is no aortic valve stenosis. No aortic regurgitation is present. Tricuspid Valve: There is mild to moderate tricuspid regurgitation. The right ventricular systolic pressure is estimated to be at least 71 mmHg based on an estimated right atrial pressure of 15 mm Hg. Pulmonic Valve: The pulmonic valve is not well seen, but is grossly normal. Pulmonic valve acceleration time averaged 78 ms. There is a trace or physiologic amount of pulmonic regurgitation. Great Vessels: The aortic root is normal size. The ascending aorta is normal in size. The aortic arch is normal in size. The pulmonary artery is normal size. The IVC is dilated (diameter is greater than 2.1 cm) and it collapses less than 50% with a sniff. This suggests a high right atrial pressure of 15 mm Hg. Pericardium/ Pleura There is no pericardial effusion. There is a small leftsided pleural effusion. MMode/2D Measurements & Calculations LVIDd: 4.3 cm LVOT diam: 2.0 cm LVIDs: 3.0 cm Ao root diam: 3.1 cm FS: 29.3 % asc Aorta Diam: 2.7 cm EPSS: 0.75 cm Ao Arch Diam (Prox Trans): 2.2 cm IVSd: 0.99 cm LVPWd: 1.2 cm LV shaver. diameter/BSA (cm/m^2): 2.7 LV sys. diameter/BSA (cm/m^2): 1.9 LA A2 area: 23.8 cm2 RA long axis: 4.7 cm LA A4 area: 25.2 cm2 RA area: 19.6 cm2 LA length (vol): 6.4 cm RA vol: 69.1 ml LA vol: 79.5 ml RA : 42.9 ml/m2 LA vol index: 49.4 ml/m2 IVC diam: 2.4 cm TAPSE: 1.7 cm Doppler Measurements & Calculations Ao V2 max: 178.8 cm/sec LVOT Max Ko: 98.3 cm/sec Ao V2 mean: 123.7 cm/sec LV V1 max P.9 mmHg Ao max P.8 mmHg LV V1 VTI: 23.7 cm Ao mean P.7 mmHg NILA(I,D): 1.8 cm2 Ao V2 VTI: 43.6 cm NILA(V,D): 1.8 cm2 sev ratio: 0.54 NILA indexed to BSA (cm^2/m^2): 1.1 MR ERO: 0.09 cm2 TR max ko: 372.5 cm/sec TR max P.5 mmHg PA V2 max: 63.9 cm/sec PA V2 mean: 44.2 cm/sec PA mean P.89 mmHg PA pr(Accel): 43.9 mmHg MR VTI: 182.6 cm MR PISA: 1.2 cm2 MR flow rate: 45.7 cm3/sec MR PISA radius: 0.44 cm SV(LVOT): 77.3 ml Reading Physician:03:57 PM
[2025-06-19] MEDS: SODIUM CHLORIDE 0.9% 1,000 ML 100 ML IV ×2 (13:30→22:39)
[2025-06-19] MEDS: FUROSEMIDE 80 MG in SODIUM CHLORIDE 0.9% 50 ML 116 MG IV ×2 (13:30→19:56)
--- NOTE | 2025-06-19 14:00 | PT.IIE ---
Current Diagnoses Pneumonia, unspecified organism (06/17/25) Surgical History (Last Reviewed 06/18/25 @ 14:23 by Chico Clayton MD) H/O: hysterectomy History of surgery History of tonsillectomy and adenoidectomy (~1939) Hx of bilateral cataract extraction Hx of hemorrhoidectomy (~1968) Medical History (Last Reviewed 06/18/25 @ 14:23 by Chico Clayton MD) Arthritis Asthma Atrial fibrillation Back pain Diabetes Edema Hearing impaired Hyperlipidemia Hypertension Leg fracture, left RLS (restless legs syndrome) Skin cancer Sleep apnea with use of continuous positive airway pressure (CPAP) TIA (transient ischemic attack) (~2018) Physical Therapy Inpatient Evaluation/Re-Eval M1 PT/OT-IP Prior Functional Status Start: 06/19/25 15:26 Freq: NEEDED Status: Active Protocol: Document 06/19/25 14:00 AB (Rec: 06/19/25 15:45 AB Desktop) Medical Review Prior Functional Status Medical History Yes Reviewed Communication able to make needs known; TELLER Mobility and Gait pt stated that she was modified independent with all mobilities and ambulation using a 4WW but occasionally without AD when inside her house Social History Household Members none Living Arrangements House Number of Floors ( One Floor Floors) Number of Stairs To ramp to enter Enter/Railing? Home Environment High Toilet,Walk in Shower Home Equipment Front Wheel Walker,Four Wheel Walker,Shower Seat with Backrest,Hand Held Shower,Lift Recliner,Bed Rails Additional Social pt's daughter and grand daughter lives in the same History Comment property as the pt and pt stated that they can stay with her to assist her if needed. M2 PT-IP Current Condition Start: 06/19/25 15:26 Freq: NEEDED Status: Active Protocol: Document 06/19/25 14:00 AB (Rec: 06/19/25 15:45 AB Desktop) Physical Therapy Current Condition Current Condition Evaluation Date 06/19/25 Treatment Diagnosis PNA; hyponatremia; difficulty in walking Onset Date 06/17/25 M3 PT-IP Subjective Start: 06/19/25 15:26 Freq: NEEDED Status: Active Protocol: Document 06/19/25 14:00 AB (Rec: 06/19/25 15:46 AB Desktop) Subjective Physical Therapy Visit Type Type Initial Evaluation Visit Start Time 14:00 Visit Stop Time 14:45 Number of SILVICULTURIST Visits 0 Physical Therapy Visit Comments Patient Comments agreed to do PT M4 PT-IP Mobility and Gait Start: 06/19/25 15:26 Freq: NEEDED Status: Active Protocol: Document 06/19/25 14:00 AB (Rec: 06/19/25 15:45 AB Desktop) PT-Bed Mobility Assessment Supine to Sit Supine to Sit Maximum Assistance,1 Person Assistance,Head of Bed Elevated,Bedrails Sit to Supine Sit to Supine Standby Assistance PT-Transfer Assessment Sit to and From Stand Sit to and from Moderate Assistance,Maximum Assistance Stand Equipment Transfer Assistive Front Wheeled Walker,4 Wheeled Walker Device Orthotic/Prosthetic No Devices or Brace: Transfers Transfer Destination Bed,Chair Transfer Technique ambulated Transfer Ability Level of Assist Moderate Assistance,1 Person Assistance,Use of Upper Extremities Comments Mobility Comments pt sitting on the commode. NAC in room. PT assisted pt. completed sit to stand max A and step transfer to chair using FWW mod A and cues. pt can be impulsive. pt tends to plop during sitting. educated pt on safety . (+) SOB and O2 sat at RA: 96-97%. obtained PLOF and home set up. completed sit to stand from chair x 2 attempts max A and max cues. pt ambulated in room ~25 ft using 4WW mod A and cues. pt sat on EOB. (+) SOB. O2 sat: 91-92 %. cued for deep breathing. completed sit to supine SBA. supine to sit x 3 attempts. pt needed max A and max cues. sit to stand from EOB mod A and step transfer to chair using 4WW mod A. pt rested. educated on sit<>stand techniques. completed sit <>stand from chair max A and max cues. pt requested to go back to bed. step transfer back to bed using 4WW mod A. sit to supine SBA. positioned pt in bed. call light and table placed within reach. Gait Assessment Gait Gait Assistance Moderate Assistance Required: Distance (Feet) 25 Able to Maintain Yes Weight Bearing Status During Gait Assistive Devices Assistive Device Gait Belt,4 Wheeled Walker Orthotic/Prosthetic No Devices or Brace: Gait Deviations General Gait Pattern Decreased Stride Length,Decreased Feet Clearance Factors Limiting Gait Function Factors Limiting Decreased Activity Tolerance,Decreased Strength,Poor Gait Function Balance,Poor Safety Awareness,Respiratory Distress PT-Balance Assessment Sitting Balance and Reactions Static Sitting Good Balance Ability Dynamic Sitting Good Balance Ability Standing Balance and Reactions Static Standing Fair Balance Ability Dynamic Standing Poor Balance Ability Device Used 4WW M5 PT-IP Objective Assessments Start: 06/19/25 15:26 Freq: NEEDED Status: Active Protocol: Document 06/19/25 14:00 AB (Rec: 06/19/25 15:45 AB Desktop) Orientation Orientation/Cognition Level of Alertness Alert Orientation Name,Situation Language Function Hard of Hearing Ability Safety Awareness Decreased Safety Awareness Memory Description Short Term Impaired Gross Range of Motion Lower Extremity ROM Assessment Within Functional Limits Strength Lower Extremity Strength Assessment Within Functional Limits Muscle Tone Muscle Tone WNL Yes M6 PT-IP Treatment Start: 06/19/25 15:26 Freq: NEEDED Status: Active Protocol: Document 06/19/25 14:00 AB (Rec: 06/19/25 15:45 AB Desktop) Physical Therapy Treatment Education Education Provided Safety M7 PT-IP Assessment and Plan Start: 06/19/25 15:26 Freq: NEEDED Status: Active Protocol: Document 06/19/25 14:00 AB (Rec: 06/19/25 15:45 AB Desktop) PT Summary Assessment and Plan Potential Rehabilitation Fair Potential Status of Condition Evolving at Evaluation Summary Impairments Pain,ROM,Strength,Balance,Coordination,Sensation,Tone, Cognition,Bed Mobility,Transfers,Gait,Activity Tolerance Assessment Summary pt is an 89 y/o F who is admitted for PNA and hyponatremia. pt requiring mod to max A with mobility using 4WW and has decrease activity tolerance with (+) SOB with O2 sat decreasing to 90-91% after ambulation from a 96-97% resting requiring increase rest breaks in between activities. pt will need assistance at home. d/c plans depending on progress: SNF vs home with 24/7 assist and HHPT. Goals Bed Mobility Goal Standby Assistance Transfer Goal Standby Assistance,Four Wheeled Walker Gait Goal Standby Assistance,Four Wheel Walker Gait Distance 100 Other Goals improve bed mobility, transfers, ambulation using 4WW mod I ~ 150 ft Days to Meet Goals 10 Frequency of Treatment Frequency Of Once a Day Treatment Treatment Plan Physical Therapy Bed Mobility Training,Transfer Training,Gait Training, Treatment Plan Therapeutic Exercise,Balance Retraining,Discharge Planning,Hot or Cold Pack,Neuromuscular Re-ed, Coordination Retraining Precautions Other Precautions O2 sat Recommendations To Nursing Amount of Assist 1 Person Assist Needed Discharge Recommendations PT Discharge Home with 10/06 Assist Available,Home Health,SNF Rehab, Recommendations Home vs SNF Transportation Needs Private Vehicle,Wheelchair/Cabulance at Discharge - PT assist 1
[2025-06-20] VITALS (67 sets, daily range): BP systolic 117–197; BP diastolic 56–85; PULSE 42–86; RESP 14–51; TEMP 36.4–36.6; O2SAT 92–99
[2025-06-20] MEDS: BENZONATATE 100 MG CAPSULE PO ×3 (03:43→20:36)
[2025-06-20] MEDS: FUROSEMIDE 80 MG in SODIUM CHLORIDE 0.9% 50 ML 116 MG IV ×3 (03:44→20:31)
[2025-06-20 04:21] LABS: Add Manual Diff / Slide Review NO; Hematocrit 26.9 % (36-46); Hemoglobin 9.0 g/dL (12.0-16.0); Lymphocytes Absolute Auto 1200 /uL (1100-4500); Mean Corpuscular HGB Conc 33.5 % (30-36); Mean Corpuscular Hemoglobin 27.0 PG (26-34); Mean Corpuscular Volume 80.6 fL (80-100); Platelet Count 306 X10^3/uL (150-400)
[2025-06-20 04:29] LABS: Blood Urea Nitrogen 24 mg/dL (7-17); Calcium 8.4 mg/dL (8.4-10.2); Carbon Dioxide 22 mmol/L (22-32); Chloride 97 mmol/L (98-107); Estimated Glomerular Filt Rate > 60 mL/min (>60); Glucose 90 mg/dL (70-99); HEMOLYSIS < 15 (0-50); Potassium 3.8 mmol/L (3.4-5.1); Sodium 127 mmol/L (137-145)
[2025-06-20] MEDS: DOXYCYCLINE 100 MG in SODIUM CHLORIDE 0.9% 100 ML IV (06:36)
[2025-06-20] MEDS: BUDESONIDE 0.5 MG/2 ML NEB INH ×2 (08:32→20:46)
[2025-06-20] MEDS: ALBUTEROL 2.5 MG/3 ML NEB (ADULT) INH ×3 (08:32→20:46)
--- NOTE | 2025-06-20 08:56 | CM.DPNOTE ---
Addendum entered by DAISY Shultz 06/20/25 15:13: per PT, definitely more appropriate for SNF at this time. pt working with other staff when this REMOTE SENSING TECHNICIAN attempted to meet for SNF recs/DCP. unable to return to room today due to triaging needs. P: SNF recs tomorrow for referrals/starting auth. CM team will continue to follow closely for DCP coordination SL Original Note: DCP note REMOTE SENSING TECHNICIAN reviewed EMR per chart review, pt sodium is 127. per previous PN, want another day of IV abx before dc home. per previous CM notes, no identified CM needs. Per RN, no new identified CM needs at this time. Pending improvement with pneumonia/hyponatremia. anticipate home later today vs tomorrow with family support and OP f/u. CM team will continue to follow closely in case any DCP needs should arise DAISY Shultz
[2025-06-20] MEDS: RIVAROXABAN 10 MG TABLET 20 MG PO (09:25)
[2025-06-20] MEDS: ATORVASTATIN 20 MG TABLET 10 MG PO (09:25)
[2025-06-20] MEDS: FERROUS SULFATE 325 MG TABLET PO (09:25)
[2025-06-20] MEDS: SODIUM CHLORIDE 0.9% FLUSH 10 ML IV ×2 (09:25→20:28)
[2025-06-20] MEDS: AMLODIPINE 5 MG TABLET PO ×2 (09:25→20:28)
--- NOTE | 2025-06-20 12:49 | PT.IPTN ---
Current Diagnoses Pneumonia, unspecified organism (06/17/25) Physical Therapy Treatment Note M2 PT-IP Current Condition Start: 06/19/25 15:26 Freq: NEEDED Status: Active Protocol: Document 06/19/25 14:00 AB (Rec: 06/19/25 15:45 AB Desktop) Physical Therapy Current Condition Current Condition Evaluation Date 06/19/25 Treatment Diagnosis PNA; hyponatremia; difficulty in walking Onset Date 06/17/25 M3 PT-IP Subjective Start: 06/19/25 15:26 Freq: NEEDED Status: Active Protocol: Document 06/20/25 11:59 MB (Rec: 06/20/25 12:49 MB Desktop) Subjective Physical Therapy Visit Type Type Treatment Note Visit Start Time 11:59 Visit Stop Time 12:14 Number of VFX ARTIST Visits 0 Physical Therapy Visit Comments Patient Comments Pt is agreeable to PT. Therapy Pain Assessment Pain When Pain Assessed At Rest Pain Present Pain Present Denied Pain M4 PT-IP Mobility and Gait Start: 06/19/25 15:26 Freq: NEEDED Status: Active Protocol: Document 06/20/25 11:59 MB (Rec: 06/20/25 12:49 MB Desktop) PT-Bed Mobility Assessment Supine to Sit Supine to Sit Contact Guard Assistance,1 Person Assistance,Head of Bed Elevated,Bedrails Sit to Supine Sit to Supine Contact Guard Assistance,1 Person Assistance,Head of Bed Elevated,Bedrails Scooting Scooting to Edge of Contact Guard Assistance Bed Scooting Up and Down Contact Guard Assistance in Bed PT-Transfer Assessment Comments Mobility Comments Pt is tachycardic and has run of V-tach per monitor during bed mobility. Nsg arrives. BP in LUE is 148/85 in hook lying and 197/77 sitting EOB. Pt has SELBY. Static sitting with right hand on bottom of bed rail and left UE assist on mattress. Sat EOB to work on breathing. Once supine, bed in Trendelenburg and pt scoots self up to HOB. Left bed in cardiac chair position. PT-Balance Assessment Sitting Balance and Reactions Static Sitting Good Balance Ability Dynamic Sitting Good Balance Ability M5 PT-IP Objective Assessments Start: 06/19/25 15:26 Freq: NEEDED Status: Active Protocol: Document 06/19/25 14:00 AB (Rec: 08/02/25 15:45 AB Desktop) Orientation Orientation/Cognition Level of Alertness Alert Orientation Name,Situation Language Function Hard of Hearing Ability Safety Awareness Decreased Safety Awareness Memory Description Short Term Impaired Gross Range of Motion Lower Extremity ROM Assessment Within Functional Limits Strength Lower Extremity Strength Assessment Within Functional Limits Muscle Tone Muscle Tone WNL Yes M6 PT-IP Treatment Start: 06/19/25 15:26 Freq: NEEDED Status: Active Protocol: Document 06/19/25 14:00 AB (Rec: 06/19/25 15:45 AB Desktop) Physical Therapy Treatment Education Education Provided Safety M7 PT-IP Assessment and Plan Start: 06/19/25 15:26 Freq: NEEDED Status: Active Protocol: Document 06/20/25 11:59 MB (Rec: 06/20/25 12:49 MB Desktop) PT Summary Assessment and Plan Potential Rehabilitation Fair Potential Status of Condition Evolving at Evaluation Summary Impairments Balance,Coordination,Cognition,Bed Mobility,Transfers, Gait,Activity Tolerance Progress Towards Progressing Toward Goals Goals Assessment Summary Pt is EKLUTNA and presents with left eye changes. She has SELBY and run of v-tach with bed mobility today and so rested sitting EOB and then returned to supine and pt scooted herself up to HOB. Recommend SNF at d/c. Goals Bed Mobility Goal Standby Assistance Transfer Goal Standby Assistance,Four Wheeled Walker Gait Goal Standby Assistance,Four Wheel Walker Gait Distance 100 Days to Meet Goals 10 Frequency of Treatment Frequency Of Once a Day Treatment Treatment Plan Physical Therapy Bed Mobility Training,Transfer Training,Gait Training, Treatment Plan Therapeutic Exercise,Balance Retraining,Discharge Planning,Hot or Cold Pack,Neuromuscular Re-ed, Coordination Retraining Recommendations To Nursing Amount of Assist 1 Person Assist Needed Discharge Recommendations PT Discharge SNF Rehab Recommendations Transportation Needs Private Vehicle,Wheelchair/Cabulance at Discharge - PT assist x1
--- NOTE | 2025-06-20 14:34 | P.PN_ITS ---
Subjective Subjective Date Patient Seen: 06/20/25 Time Patient Seen: 08:00 Interval history: HPI: 89-year-old female with productive cough treated outpatient with Augmentin orally but still feeling short of breath and lethargy had a follow up appointment with laboratory testing on an outpatient basis side to be hyponatremic and recommended to become evaluated in the emergency department. In the emergency room following fine and pertinent findings White count [id number], sodium of 118, bilateral streaky infiltrates on lower lobes on chest x-ray pro BNP of 6000 systolic blood pressure of 200 Hospital course: 06/18: The patient reports feeling better with improved but persistent cough, and improved breathing with persistent mild shortness breath and lethargy. Sodium 119 this morning. 06/19: The patient has a left subconjunctival hemorrhage without vision changes. She thinks she is scratched her left eye. She reports persistent but improved cough and shortness of breath. Sodium 121 this morning. 06/20: The patient is feeling better. Sodium level is up to 127. She started to work with physical therapy. Exam Vital Signs (past 8 hours): - 06/20/25 07:00 06/20/25 07:00 06/20/25 07:30 Temperature Pulse Rate 47 L 49 L Respiratory Rate 21 19 Blood Pressure Pulse Oximetry 98 95 96 Oxygen Delivery Method Room Air 06/20/25 08:00 06/20/25 08:00 06/20/25 08:14 Temperature Pulse Rate 78 69 Respiratory Rate 22 26 H Blood Pressure Pulse Oximetry 95 Oxygen Delivery Method Room Air 06/20/25 08:14 06/20/25 08:30 06/20/25 08:33 Temperature Pulse Rate 67 73 Respiratory Rate 24 24 Blood Pressure 154/63 H Pulse Oximetry 96 96 Oxygen Delivery Method Room Air 06/20/25 09:00 06/20/25 09:00 06/20/25 09:30 Temperature 97.8 F Pulse Rate 63 69 Respiratory Rate 23 20 Blood Pressure Pulse Oximetry 96 98 Oxygen Delivery Method 06/20/25 10:00 06/20/25 10:01 06/20/25 10:01 Temperature Pulse Rate 68 63 Respiratory Rate 29 H 26 H Blood Pressure 153/63 H Pulse Oximetry 98 97 Oxygen Delivery Method 06/20/25 10:30 06/20/25 11:00 06/20/25 11:30 Temperature Pulse Rate 57 L 57 L 48 L Respiratory Rate 16 19 22 Blood Pressure Pulse Oximetry 98 99 97 Oxygen Delivery Method 06/20/25 12:00 06/20/25 12:00 06/20/25 12:00 Temperature Pulse Rate 61 Respiratory Rate 18 Blood Pressure 148/85 H Pulse Oximetry 96 Oxygen Delivery Method Room Air 06/20/25 12:08 06/20/25 12:08 06/20/25 12:30 Temperature Pulse Rate 78 67 Respiratory Rate 26 H 25 H Blood Pressure 197/77 H Pulse Oximetry Oxygen Delivery Method Oxygen Delivery Method Room Air Oxygen Flow Rate 0 Narrative Exam Narrative: Very pleasant female in no acute distress HEENT prominent left subconjunctival hemorrhage, left periorbital ecchymosis. Visual acuity is intact in both eyes with full confrontational visual peña Neck no carotid bruits Heart rate and rhythm irregular heart sounds distant Lungs clear upper, 1/3 bibasilar rales notable Extremities no edema Abdomen benign Objective Imaging Chest x-ray 06/17/2025:: Radiologist's impression: [id number] pulmonary edema. Streaky left perihilar opacity could represent atelectasis or aspiration. Labs 06/20/25 03:40 06/20/25 03:40 Labs: Laboratory Results - last 24 hr 06/20/25 03:40 WBC 8.9 RBC 3.34 L Hgb 9.0 L Hct 26.9 L MCV 80.6 MCH 27.0 MCHC 33.5 RDW 15.1 H Plt Count 306 Neut % (Auto) 73.7 Lymph % (Auto) 13.8 L [place] % (Auto) 10.0 Eos % (Auto) 2.0 Baso % (Auto) 0.5 Neut # (Auto) 6600 Lymph # (Auto) 1200 [place] # (Auto) 900 Eos # (Auto) 200 Baso # (Auto) 0 Sodium 127 L Potassium 3.8 Chloride 97 L Carbon Dioxide 22 BUN 24 H Creatinine 0.80 Estimated GFR > 60 BUN/Creatinine Ratio 30.0 H Glucose 90 Calcium 8.4 PFSH Medical History Arthritis Asthma Atrial fibrillation Back pain Diabetes Edema Hearing impaired Hyperlipidemia Hypertension Leg fracture, left RLS (restless legs syndrome) Skin cancer Sleep apnea with use of continuous positive airway pressure (CPAP) TIA (transient ischemic attack) (~2018) Surgical History H/O: hysterectomy History of surgery History of tonsillectomy and adenoidectomy (~1939) Hx of bilateral cataract extraction Hx of hemorrhoidectomy (~1968) Family History Mother Diabetes mellitus Myocardial infarction Father Diabetes mellitus Social History household members: none Smoking Status: Never smoker alcohol intake: current Assessment & Plan Assessment & Plan narrative: Pneumonia in this patient with cellular loss hyponatremia combination of insensible loss together with dehydration and depletion. Suspect BNP of 6000 is due to atrial dilation from endotoxin and not from fluid overload * Stop IVF * Monitor serum sodium daily at this point * Remain off lisinopril * amlodipine 5 mg q.12 hours for hypertension * Ceftriaxone and azithromycin * Sputum cultures negative to date. * Blood culture negative to date Elevated BNP, rule out CHF * Echocardiogram pending * furosemide 40mg IV q8hr Hyponatremia * Likely due to volume overload * Stop IV NS at this point * Continue diuresis * Monitor closely * Chronic atrial fibrillation: * Continue rate control with atenolol and CVA prophylaxis with Xarelto DVT prophylaxis: * Covered with Xarelto Code status: * Full code She remains weak and is improving with PT. She will require longterm facility placement and physical therapy at discharge. Quality VTE Deep Vein Thrombosis/Pulmonary Embolism Present on Admission: No [facility] PROFEE Branch Office Administrator Document charge(s): No Charge Codes Subsequent inpatient/observation care: [id number]
[2025-06-20] MEDS: DOXYCYCLINE HYCLATE 100 MG TABLET PO (20:28)
[2025-06-20] MEDS: CYCLOBENZAPRINE 10 MG TABLET PO (20:36)
[2025-06-20] MEDS: DOCUSATE 100 MG CAPSULE PO (20:38)
[2025-06-21] VITALS (34 sets, daily range): BP systolic 107–148; BP diastolic 46–85; PULSE 52–96; RESP 15–44; TEMP 36.6; O2SAT 92–100
[2025-06-21] MEDS: HYDROCODONE/ACET 5/325 TABLET 1 TAB PO ×3 (00:17→20:37)
[2025-06-21] MEDS: FUROSEMIDE 80 MG in SODIUM CHLORIDE 0.9% 50 ML 116 MG IV ×2 (04:36→13:09)
[2025-06-21 05:32] LABS: Add Manual Diff / Slide Review NO; Hematocrit 23.6 % (36-46); Hemoglobin 7.8 g/dL (12.0-16.0); Lymphocytes Absolute Auto 1900 /uL (1100-4500); Mean Corpuscular HGB Conc 33.0 % (30-36); Mean Corpuscular Hemoglobin 26.7 PG (26-34); Mean Corpuscular Volume 80.9 fL (80-100); Platelet Count 325 X10^3/uL (150-400)
[2025-06-21 05:42] LABS: Blood Urea Nitrogen 22 mg/dL (7-17); Calcium 8.3 mg/dL (8.4-10.2); Carbon Dioxide 26 mmol/L (22-32); Chloride 92 mmol/L (98-107); Estimated Glomerular Filt Rate > 60 mL/min (>60); Glucose 82 mg/dL (70-99); HEMOLYSIS < 15 (0-50); Potassium 3.9 mmol/L (3.4-5.1); Sodium 121 mmol/L (137-145)
[2025-06-21] MEDS: ALBUTEROL 2.5 MG/3 ML NEB (ADULT) INH ×5 (07:45→22:05)
[2025-06-21] MEDS: BUDESONIDE 0.5 MG/2 ML NEB INH ×2 (07:46→19:13)
--- NOTE | 2025-06-21 08:21 | DI.RAD.S_ITS ---
PROCEDURE: XR CHEST 1V INDICATIONS: chf TECHNIQUE: One view of the chest was acquired. COMPARISON: [facility], CR, XR CHEST 1V, 06/17/2025, 14:46. [facility], CR, XR CHEST 1V, 12/28/2018, 18:46. FINDINGS: Surgical changes and devices: None. Lungs and pleura: Peribronchial cuffing. Small pleural effusions. Left perihilar opacity. Mediastinum: Mediastinal contours appear normal. Heart size is enlarged. Bones and chest wall: No suspicious bony lesions. Overlying soft tissues appear unremarkable. IMPRESSION: Peribronchial cuffing, either mild pulmonary edema or bronchitis. Small pleural effusions. Left perihilar opacity, either atelectasis, infection or aspiration. Dictated by: Jesus Kearney M.D. on 06/21/2025 at 8:48 Approved by: Jesus Kearney M.D. on 06/21/2025 at 8:48
[2025-06-21] MEDS: DOXYCYCLINE HYCLATE 100 MG TABLET PO ×2 (09:07→20:37)
[2025-06-21] MEDS: FERROUS SULFATE 325 MG TABLET PO (09:07)
[2025-06-21] MEDS: ATORVASTATIN 20 MG TABLET 10 MG PO (09:07)
[2025-06-21] MEDS: RIVAROXABAN 10 MG TABLET 20 MG PO (09:07)
[2025-06-21] MEDS: DOCUSATE 100 MG CAPSULE PO (09:07)
[2025-06-21] MEDS: AMLODIPINE 5 MG TABLET PO ×2 (09:07→20:37)
[2025-06-21] MEDS: SODIUM CHLORIDE 0.9% FLUSH 10 ML IV ×2 (09:09→20:39)
[2025-06-21] MEDS: BENZONATATE 100 MG CAPSULE PO ×2 (09:09→20:37)
--- NOTE | 2025-06-21 14:49 | PT-IP ANOTE ---
Pt checks in on pt who has been sitting up in chair all day. She does not wish to get back to bed. Pt c/o left groin pain. PT speaks with nsg and this appears to be a consistent complaint for pt. Pt initiates scooting in chair and she c/o increased pain. Nsg to communicate with provider about possible diagnostic. Will hold PT this p.m.
--- NOTE | 2025-06-21 15:38 | CM.DPNOTE ---
DCP note DUMPMAN reviewed EMR per chart, still rec SNF. DUMPMAN met with pt in room. preference for SNF at - spouse had been there before. DUMPMAN answered questions to best of ability per Lupe at , can accept and submitted for auth PASRR needed P: anticipate dc to when medically stable/auth obtained. CM team will continue to follow closely for DCP Coordination DAISY Shultz
--- NOTE | 2025-06-21 15:52 | P.PN_ITS ---
Subjective Subjective Date Patient Seen: 06/21/25 Interval history: Chief complaint: Lethargy productive cough failure of Augmentin to resolve with hyponatremia sodium 118 History of present illness: 06/17: 89-year-old female with productive cough treated outpatient with Augmentin orally but still feeling short of breath and lethargy had a follow up appointment with laboratory testing on an outpatient basis side to be hyponatremic and recommended to become evaluated in the emergency department. In the emergency room following fine and pertinent findings White count 57769, sodium of 118, bilateral streaky infiltrates on lower lobes on chest x-ray pro BNP of 6000 systolic blood pressure of 200 Hospital course: 06/18: The patient reports feeling better with improved but persistent cough, and improved breathing with persistent mild shortness breath and lethargy. Sodium 119 this morning. 06/19: The patient has a left subconjunctival hemorrhage without vision changes. She thinks she is scratched her left eye. She reports persistent but improved cough and shortness of breath. Sodium 121 this morning. 06/20: The patient is feeling better. Sodium level is up to 127. She started to work with physical therapy. 06/21: Patient reports dyspnea with walking across the room with some chest pressure echocardiogram demonstrates: Ejection fraction 65-70% Dyssynchronous contraction pattern Atrial fibrillation with Diastolic dysfunction could not be extra assessed Right ventricular systolic pressure estimated to at least 71 mmHg Right atrial pressure 15 mm Valves unremarkable Assessment and plan: Pneumonia in this patient with cellular loss hyponatremia combination of insensible loss together with dehydration and depletion. Suspect BNP of 6000 is due to atrial dilation from endotoxin and not from fluid overload * Monitor serum sodium daily at this point * Remain off lisinopril * amlodipine 5 mg q.12 hours for hypertension * Ceftriaxone and azithromycin for 1 more day * Sputum cultures negative to date. * Blood culture negative to date Suspected acute on chronic cor pulmonale with left-sided diastolic congestive heart failure * Echocardiogram as above * furosemide discontinued for now * Review potential for sildenafil Hyponatremia * Likely due to volume overload, solute depletion and possible SIADH * Fluid restriction * Monitor closely Chronic atrial fibrillation: * Continue rate control with atenolol and CVA prophylaxis with Xarelto DVT prophylaxis: * Covered with Xarelto Code status: * Full code Disposition: * She remains weak and is improving with PT. She will require care home facility placement and physical therapy at discharge. * Continuing to adjust medications for hyponatremia * Forecast 24-48 hours for fitness for discharge to care home. 75% chance for Saturday 06/23 50% chance for Friday 06/22 35 minutes were involved in the management of this patient including [id number]-[id number] evaluation direct physical examination discussion with relatives review of laboratory objective findings it trends echocardiogram Exam Vital Signs (past 8 hours): - 06/21/25 08:00 06/21/25 10:00 06/21/25 11:51 Pulse Rate 79 Respiratory Rate 16 Pulse Oximetry 98 96 Oxygen Delivery Method Room Air Room Air Room Air Oxygen Flow Rate 0 0 Fraction of Inspired Oxygen 21 06/21/25 12:51 Pulse Rate Respiratory Rate Pulse Oximetry Oxygen Delivery Method Room Air Oxygen Flow Rate Fraction of Inspired Oxygen Fraction of Inspired Oxygen 21 SaO2/FiO2 Ratio 457 Oxygen Delivery Method Room Air Oxygen Flow Rate 0 Objective Labs 06/21/25 04:30 06/21/25 04:30 Labs: Laboratory Results - last 24 hr 06/21/25 04:30 WBC 11.7 H RBC 2.92 L Hgb 7.8 L Hct 23.6 L MCV 80.9 MCH 26.7 MCHC 33.0 RDW 15.6 H Plt Count 325 Neut % (Auto) 70.6 Lymph % (Auto) 15.8 L [place] % (Auto) 10.6 Eos % (Auto) 2.6 Baso % (Auto) 0.4 Neut # (Auto) 8300 H Lymph # (Auto) 1900 [place] # (Auto) 1200 H Eos # (Auto) 300 Baso # (Auto) 0 Sodium 121 L Potassium 3.9 Chloride 92 L Carbon Dioxide 26 BUN 22 H Creatinine 0.79 Estimated GFR > 60 BUN/Creatinine Ratio 27.8 H Glucose 82 Calcium 8.3 L [facility] Medical History Asthma Back pain Arthritis Skin cancer Leg fracture, left Edema Sleep apnea with use of continuous positive airway pressure (CPAP) Hearing impaired RLS (restless legs syndrome) TIA (transient ischemic attack) (~2018) Atrial fibrillation Hyperlipidemia Hypertension Diabetes Surgical History Hx of hemorrhoidectomy (~1968) History of surgery History of tonsillectomy and adenoidectomy (~1939) H/O: hysterectomy Hx of bilateral cataract extraction Family History Mother Diabetes mellitus Myocardial infarction Father Diabetes mellitus Social History household members: none Smoking Status: Never smoker alcohol intake: current Assessment & Plan Time-Based Coding :: [TOTAL MINUTES] spent with patient and on the chart (including review of chart, obtaining history, exam, reviewing outside data, placing orders, documenting exam and treatment plan, and counseling patient) on [DATE]. Quality VTE Deep Vein Thrombosis/Pulmonary Embolism Present on Admission: No
[2025-06-21] MEDS: SODIUM CHLORIDE 1,000 MG TABLET 1000 MG PO ×2 (18:35→20:37)
[2025-06-21] MEDS: CYCLOBENZAPRINE 10 MG TABLET PO (20:37)
[2025-06-22] VITALS (57 sets, daily range): BP systolic 116–143; BP diastolic 54–63; PULSE 52–91; RESP 13–37; TEMP 36.6–36.7; O2SAT 96–98
--- NOTE | 2025-06-22 07:51 | DI.CT.S_ITS ---
PROCEDURE: CT ANGIO CHEST PE PROTOCOL INDICATIONS: Evaluate pulmonary hypertension TECHNIQUE: After the administration of intravenous contrast, 2 mm thick sections acquired from the pulmonary apices to the posterior costophrenic angles. 3-dimensional maximum intensity projection (MIP) coronal and sagittal reformats were then acquired through the thorax. For radiation dose reduction, the following was used: automated exposure control, adjustment of mA and/or kV according to patient size. COMPARISON: [facility], CT, CT ANGIO CHEST PE PROTOCOL, 12/28/2018, 21:39. FINDINGS: Image quality: Suboptimal opacification of distal subsegmental pulmonary arteries Pulmonary arteries: Pulmonary arteries are normal in size, and demonstrate no intraluminal filling defects to level of the distal subsegmental pulmonary arteries to suggest central pulmonary embolism. Lower Neck: No enlarged lymph nodes. Thyroid: No thyroid nodules which require sonographic follow up, per consensus guidelines. Axillae: No enlarged lymph nodes. Chest Wall: Unremarkable. Bones: Unremarkable. Lungs and Pleura: No pneumothorax . Small bilateral pleural effusions with subjacent atelectasis. Left upper lobe ground-glass nodule measuring 3.0 x 1.9 cm (5/79). Additional sub 6 mm solid pulmonary nodules, for example 3 mm right upper lobe nodule (5/72, MIP image 37). Heart: Heart size is normal. No pericardial effusion. Thoracic Vessels: No aortic aneurysm. Mediastinum and Luz: No enlarged lymph nodes. Esophagus: No wall thickening. No hiatal hernia. Upper Abdomen: Visualized upper abdomen solid organs and bowel loops appear normal. IMPRESSION: No pulmonary embolus. Small bilateral pleural effusions with subjacent atelectasis. Left upper lobe 3.0 x 1.9 ground-glass nodule. Recommend follow-up CT chest in 3-6 months. Approved by: Gracie Marks M.D.,Ph.D. on 06/22/2025 at 9:12
[2025-06-22] MEDS: ALBUTEROL 2.5 MG/3 ML NEB (ADULT) INH ×4 (07:52→19:27)
[2025-06-22] MEDS: BUDESONIDE 0.5 MG/2 ML NEB INH ×2 (07:52→19:27)
--- NOTE | 2025-06-22 07:53 | P.PN_ITS ---
Subjective Subjective Date Patient Seen: 06/22/25 Interval history: Chief complaint: Lethargy productive cough failure of Augmentin to resolve with hyponatremia sodium 118 History of present illness: 06/17: 89-year-old female with productive cough treated outpatient with Augmentin orally but still feeling short of breath and lethargy had a follow up appointment with laboratory testing on an outpatient basis side to be hyponatremic and recommended to become evaluated in the emergency department. In the emergency room following fine and pertinent findings White count 90331, sodium of 118, bilateral streaky infiltrates on lower lobes on chest x-ray pro BNP of 6000 systolic blood pressure of 200 Hospital course: 06/18: The patient reports feeling better with improved but persistent cough, and improved breathing with persistent mild shortness breath and lethargy. Sodium 119 this morning. 06/19: The patient has a left subconjunctival hemorrhage without vision changes. She thinks she is scratched her left eye. She reports persistent but improved cough and shortness of breath. Sodium 121 this morning. 06/20: The patient is feeling better. Sodium level is up to 127. She started to work with physical therapy. 06/21: Patient reports dyspnea with walking across the room with some chest pressure echocardiogram demonstrates: Ejection fraction 65-70% Dyssynchronous contraction pattern Atrial fibrillation with Diastolic dysfunction could not be extra assessed Right ventricular systolic pressure estimated to at least 71 mmHg Right atrial pressure 15 mm Valves unremarkable 06/22: Case discussed with the nitrocellulose maker recommending CT angio to rule out pulmonary embolus as the cause. Hypercoagulable workup if this is positive of course. If this is negative then patient will need a referral for outpatient cardiology for a follow up? catheterization. Patient has been placed on fluid restriction and salt tablets for either solute depletion or possible SIADH Assessment and plan: Pneumonia in this patient with cellular loss hyponatremia combination of insensible loss together with dehydration and depletion. Suspect BNP of 6000 is due to atrial dilation from endotoxin and not from fluid overload * Monitor serum sodium daily at this point * Remain off lisinopril * amlodipine 5 mg q.12 hours for hypertension * Ceftriaxone and azithromycin for 1 more day * Sputum cultures negative to date. * Blood culture negative to date Suspected acute on chronic cor pulmonale with left-sided diastolic congestive heart failure * Echocardiogram as above * furosemide discontinued for now * Review potential for sildenafil Hyponatremia * Likely due to volume overload, solute depletion and possible SIADH * Fluid restriction * Monitor closely Chronic atrial fibrillation: * Continue rate control with atenolol and CVA prophylaxis with Xarelto DVT prophylaxis: * Covered with Xarelto Code status: * Full code Disposition: * She remains weak and is improving with PT. She will require [facility] facility [facility] and physical therapy at discharge. * Continuing to adjust medications for hyponatremia * Forecast 24-48 hours for fitness for discharge to jail. 75% chance for Saturday 06/23 50% chance for Friday 06/22 35 minutes were involved in the management of this patient including [id number] evaluation direct physical examination discussion with relatives review of laboratory objective findings it trends echocardiogram Exam Vital Signs (past 8 hours): - 06/22/25 00:00 06/22/25 03:00 06/22/25 04:00 Pulse Rate 68 Respiratory Rate 18 Blood Pressure 116/54 L Pulse Oximetry 97 Oxygen Delivery Method CPAP CPAP Fraction of Inspired Oxygen 21 SaO2/FiO2 Ratio 461 Oxygen Delivery Method CPAP Oxygen Flow Rate 0 Objective Labs 06/21/25 04:30 06/21/25 04:30 PENDING SALE TO [facility] Medical History Asthma Back pain Arthritis Skin cancer Leg fracture, left Edema Sleep apnea with use of continuous positive airway pressure (CPAP) Hearing impaired RLS (restless legs syndrome) TIA (transient ischemic attack) (~2018) Atrial fibrillation Hyperlipidemia Hypertension Diabetes Surgical History Hx of hemorrhoidectomy (~1969) History of surgery History of tonsillectomy and adenoidectomy (~1939) H/O: hysterectomy Hx of bilateral cataract extraction Family History Mother Diabetes mellitus Myocardial infarction Father Diabetes mellitus Social History household members: none Smoking Status: Never smoker alcohol intake: current Assessment & Plan Time-Based Coding :: [TOTAL MINUTES] spent with patient and on the chart (including review of chart, obtaining history, exam, reviewing outside data, placing orders, documenting exam and treatment plan, and counseling patient) on [DATE]. Quality VTE Deep Vein Thrombosis/Pulmonary Embolism Present on Admission: No
[2025-06-22 09:16] LABS: Blood Urea Nitrogen 29 mg/dL (7-17); Calcium 8.5 mg/dL (8.4-10.2); Carbon Dioxide 20 mmol/L (22-32); Chloride 88 mmol/L (98-107); Estimated Glomerular Filt Rate 50 mL/min (>60); Glucose 96 mg/dL (70-99); HEMOLYSIS < 15 (0-50); Potassium 4.2 mmol/L (3.4-5.1)
[2025-06-22 09:26] LABS: Sodium 117 mmol/L (137-145)
[2025-06-22] MEDS: ATORVASTATIN 20 MG TABLET 10 MG PO (09:34)
[2025-06-22] MEDS: FERROUS SULFATE 325 MG TABLET PO (09:35)
[2025-06-22] MEDS: AMLODIPINE 5 MG TABLET PO ×2 (09:35→20:13)
[2025-06-22] MEDS: SODIUM CHLORIDE 1,000 MG TABLET 1000 MG PO ×3 (09:35→20:13)
[2025-06-22] MEDS: RIVAROXABAN 10 MG TABLET 20 MG PO (09:35)
[2025-06-22] MEDS: SODIUM CHLORIDE 0.9% FLUSH 10 ML IV ×2 (09:35→20:13)
--- NOTE | 2025-06-22 14:00 | PT.IPTN ---
Current Diagnoses Pneumonia, unspecified organism (06/17/25) Physical Therapy Treatment Note M2 PT-IP Current Condition Start: 06/19/25 15:26 Freq: NEEDED Status: Active Protocol: Document 06/19/25 14:00 AB (Rec: 06/19/25 15:45 AB Desktop) Physical Therapy Current Condition Current Condition Evaluation Date 06/19/25 Treatment Diagnosis PNA; hyponatremia; difficulty in walking Onset Date 06/17/25 M3 PT-IP Subjective Start: 06/19/25 15:26 Freq: NEEDED Status: Active Protocol: Document 06/22/25 14:00 AB (Rec: 06/22/25 18:10 AB [id number]) Subjective Physical Therapy Visit Type Type Treatment Note Visit Start Time 14:00 Visit Stop Time 14:20 Number of NURSE INFECTION CONTROL Visits 0 Physical Therapy Visit Comments Patient Comments agreeable to do PT M4 PT-IP Mobility and Gait Start: 06/19/25 15:26 Freq: NEEDED Status: Active Protocol: Document 06/22/25 14:00 AB (Rec: 06/22/25 18:10 AB [id number]) PT-Bed Mobility Assessment Supine to Sit Supine to Sit Bedrails PT-Transfer Assessment Sit to and From Stand Sit to and from Maximum Assistance,1 Person Assistance,Use of Upper Stand Extremities Equipment Transfer Assistive Gait Belt,Front Wheeled Walker Device Orthotic/Prosthetic No Devices or Brace: Comments Mobility Comments pt needing increase rest breaks in between tasks. pt stated that she feels unsteady today. opted to use FWW for safety. O 2 sat at RA 96-97%. WV: 70. sit to stand from the chair max A and max cues and pt ambulated in room using FWW ~ 25 ft. pt sat on the chair. refused further ambulation. sit<>stand activity: educated pt on techniques for sit to stand and pt completed max A and max cues. upon standing, pt stated that she needs to use the toilet and ambulated tot he bedside commode using FWW min A ~ 12 ft. pt wanting to sit on the commode for awhile. Left pt with nurse. Gait Assessment Gait Gait Assistance Minimum Assistance Required: Distance (Feet) 25 Able to Maintain Yes Weight Bearing Status During Gait Assistive Devices Assistive Device Gait Belt,Front Wheeled Walker Orthotic/Prosthetic No Devices or Brace: Gait Deviations General Gait Pattern Antalgic,Decreased Stride Length,Decreased Feet Clearance,Step-to Gait Factors Limiting Gait Function Factors Limiting Decreased Activity Tolerance,Decreased Strength,Poor Gait Function Balance,Poor Safety Awareness,Respiratory Distress M5 PT-IP Objective Assessments Start: 06/19/25 15:26 Freq: NEEDED Status: Active Protocol: Document 06/19/25 14:00 AB (Rec: 06/19/25 15:45 AB Desktop) Orientation Orientation/Cognition Level of Alertness Alert Orientation Name,Situation Language Function Hard of Hearing Ability Safety Awareness Decreased Safety Awareness Memory Description Short Term Impaired Gross Range of Motion Lower Extremity ROM Assessment Within Functional Limits Strength Lower Extremity Strength Assessment Within Functional Limits Muscle Tone Muscle Tone WNL Yes M6 PT-IP Treatment Start: 06/19/25 15:26 Freq: NEEDED Status: Active Protocol: Document 06/22/25 14:00 AB (Rec: 06/22/25 18:10 AB [id number]) Physical Therapy Treatment Education Education Provided Safety M7 PT-IP Assessment and Plan Start: 06/19/25 15:26 Freq: NEEDED Status: Active Protocol: Document 06/22/25 14:00 AB (Rec: 06/22/25 18:10 AB [id number]) PT Summary Assessment and Plan Potential Rehabilitation Fair Potential Summary Impairments Pain,ROM,Strength,Balance,Coordination,Sensation,Tone, Cognition,Bed Mobility,Transfers,Gait,Activity Tolerance Progress Towards Slow Progress due to Medical Issues,Slow Progress due Goals to Activity Tolerance,Slow Progress - Other Assessment Summary pt requiring max A for sit to stand and min A for ambulation using FWW but only able to ambulate ~ 25 ft with c/o feeling tired. (+) SOB but O2 sat: 96-97% after ambulation. pt will require SNF rehab to improve overall strength and mobility independence. Goals Bed Mobility Goal Standby Assistance Transfer Goal Standby Assistance,Four Wheeled Walker Gait Goal Standby Assistance,Four Wheel Walker Gait Distance 100 Days to Meet Goals 10 Frequency of Treatment Frequency Of Once a Day Treatment Treatment Plan Physical Therapy Bed Mobility Training,Transfer Training,Gait Training, Treatment Plan Therapeutic Exercise,Balance Retraining,Discharge Planning,Hot or Cold Pack,Neuromuscular Re-ed, Coordination Retraining Recommendations To Nursing Amount of Assist 1 Person Assist Needed Discharge Recommendations PT Discharge SNF Rehab Recommendations Transportation Needs Private Vehicle,Wheelchair/Cabulance at Discharge - PT assist 1
[2025-06-22 14:09] LABS: Osmolality, Serum 256 mOsmol/kg (280-301)
--- NOTE | 2025-06-22 16:09 | CM.DPNOTE ---
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 per lorene rowell pending. time pending. FLATTENING PRESS OPERATOR met with pt in room. updated on plan. in agreement. answered questions to best of ability. FLATTENING PRESS OPERATOR completed PASRR P: Dc to [facility] tomorrow (when medically stable/auth secured). will continue to follow closely for DCP coordination DAISY Shultz
--- NOTE | 2025-06-22 17:19 | DIET.CONS ---
Dietary Consultation Note Admission Date: 06/17/2025 17:42 Assessment: 89 y F admitted for pneumonia and hyponatremia. Dietitian screened for LOS. EMR reviewed. No recent weight loss. 75-100% recorded PO intakes. DFM reviewed for meal composition. Ht: 152.4 cm Wt: 66 kg BMI: 27.5 Last BM: 06/19/25 (06/19/25 14:34) MNA: Renny Score: 18 Diet: 06/17/25 Dinner Heart Healthy Diet Diet Modifications: 06/21/25 Dinner Fluid Restriction Diet Diet Modifications: Total fluid amount: 1,200 Amount allotted to patient trays: 0 Free water included in total: No Fluid in addition to trays: 9190-0306 amount: 1,000 4500-1526 amount: 200 Food Texture: Level 7 - Regular Liquid Consistency: Level 0 - Thin Nutrition Percent Meal Consumed 75% 06/22/25 12:48 Percent Meal Consumed 100% 06/22/25 09:55 Percent Meal Consumed 100% 06/21/25 19:18 Percent Meal Consumed 75% 06/21/25 18:00 Percent Meal Consumed 100% 06/21/25 09:00 Labs: RBC 2.92 X10^6/uL (4.0-5.2) L 06/21/25 04:30 Hgb 7.8 g/dL (12.0-16.0) L 06/21/25 04:30 Hct 23.6 % (36-46) L 06/21/25 04:30 Creatinine 1.07 mg/dL (0.52-1.04) H 06/22/25 08:45 Lactate 0.7 mmol/L (0.7-2.1) 06/17/25 19:11 NT-Pro-B Natriuret Pep 6610 pg/mL (<450) H 06/17/25 16:14 Monitoring/Evaluations: No nutritional interventions needed at this time, PO intakes Electronically Signed by: Liat Cardozo 06/22/25 17:19 Clinical Dietitian [address] [address]
[2025-06-22] MEDS: CYCLOBENZAPRINE 10 MG TABLET PO (20:13)
[2025-06-22] MEDS: HYDROCODONE/ACET 5/325 TABLET 1 TAB PO (20:13)
[2025-06-23] VITALS (33 sets, daily range): BP systolic 120–141; BP diastolic 53–61; PULSE 60–88; RESP 14–33; TEMP 36.8; O2SAT 93–100
[2025-06-23 08:08] LABS: Blood Urea Nitrogen 39 mg/dL (7-17); Calcium 8.8 mg/dL (8.4-10.2); Carbon Dioxide 22 mmol/L (22-32); Chloride 91 mmol/L (98-107); Estimated Glomerular Filt Rate 46 mL/min (>60); Glucose 88 mg/dL (70-99); HEMOLYSIS < 15 (0-50); Potassium 4.3 mmol/L (3.4-5.1); Sodium 121 mmol/L (137-145)
[2025-06-23] MEDS: ALBUTEROL 2.5 MG/3 ML NEB (ADULT) INH ×4 (08:22→20:02)
[2025-06-23] MEDS: BUDESONIDE 0.5 MG/2 ML NEB INH ×2 (08:22→20:02)
[2025-06-23] MEDS: ATORVASTATIN 20 MG TABLET 10 MG PO (08:51)
[2025-06-23] MEDS: FERROUS SULFATE 325 MG TABLET PO (08:51)
[2025-06-23] MEDS: AMLODIPINE 5 MG TABLET PO ×2 (08:51→21:55)
[2025-06-23] MEDS: SODIUM CHLORIDE 1,000 MG TABLET 1000 MG PO ×3 (08:51→21:55)
[2025-06-23] MEDS: SODIUM CHLORIDE 0.9% FLUSH 10 ML IV ×2 (08:52→21:55)
[2025-06-23] MEDS: RIVAROXABAN 10 MG TABLET 20 MG PO (08:52)
--- NOTE | 2025-06-23 09:25 | PT.IPTN ---
Current Diagnoses Pneumonia, unspecified organism (06/17/25) Physical Therapy Treatment Note M2 PT-IP Current Condition Start: 06/19/25 15:26 Freq: NEEDED Status: Active Protocol: Document 06/19/25 14:00 AB (Rec: 06/19/25 15:45 AB Desktop) Physical Therapy Current Condition Current Condition Evaluation Date 06/19/25 Treatment Diagnosis PNA; hyponatremia; difficulty in walking Onset Date 06/17/25 M3 PT-IP Subjective Start: 06/19/25 15:26 Freq: NEEDED Status: Active Protocol: Document 06/23/25 09:25 AB (Rec: 06/23/25 12:02 AB [id number]) Subjective Physical Therapy Visit Type Type Treatment Note Visit Start Time 09:25 Visit Stop Time 09:43 Number of PACKAGE CLERK Visits 0 Physical Therapy Visit Comments Patient Comments requested to use the toilet M4 PT-IP Mobility and Gait Start: 06/19/25 15:26 Freq: NEEDED Status: Active Protocol: Document 06/23/25 09:25 AB (Rec: 06/23/25 12:02 AB [id number]) PT-Bed Mobility Assessment Supine to Sit Supine to Sit Maximum Assistance,1 Person Assistance,Head of Bed Elevated,Bedrails PT-Transfer Assessment Sit to and From Stand Sit to and from Maximum Assistance,1 Person Assistance,Use of Upper Stand Extremities Equipment Transfer Assistive Gait Belt,4 Wheeled Walker Device Orthotic/Prosthetic No Devices or Brace: Transfers Transfer Destination Toilet Transfer Technique ambulated Transfer Ability Level of Assist Minimal Assistance,1 Person Assistance,Use of Upper Extremities Comments Mobility Comments pt in bed and requesting to use the toilet. supine to sit max A and max cues. HOB elevated. able to sit on EOB CGA. (+) SOB. O2 sat: 96%. sit to stand max A and pt ambulated to the toilet using 4WW min A but mod A with turning in the toilet/tight space and cues provided. pt able to maintain standing min A while assisted with brief management. pt wanting to sit on the toilet for a while. call light placed next to pt. informed NAC. left pt with NAC. checked back on pt after ~ 1 hour for more ambulation but pt declined. stated that she is going to SNF later today and does not want to walk with PT. Gait Assessment Gait Gait Assistance Minimum Assistance,Moderate Assistance Required: Distance (Feet) 12 Able to Maintain Yes Weight Bearing Status During Gait Assistive Devices Assistive Device Gait Belt,4 Wheeled Walker Orthotic/Prosthetic No Devices or Brace: Gait Deviations General Gait Pattern Antalgic,Decreased Stride Length,Decreased Feet Clearance Factors Limiting Gait Function Factors Limiting Decreased Activity Tolerance,Decreased Strength, Gait Function Difficulty Following Directions,Limited Range of Motion ,Pain,Poor Balance,Poor Safety Awareness M5 PT-IP Objective Assessments Start: 06/19/25 15:26 Freq: NEEDED Status: Active Protocol: Document 06/19/25 14:00 AB (Rec: 06/19/25 15:45 AB Desktop) Orientation Orientation/Cognition Level of Alertness Alert Orientation Name,Situation Language Function Hard of Hearing Ability Safety Awareness Decreased Safety Awareness Memory Description Short Term Impaired Gross Range of Motion Lower Extremity ROM Assessment Within Functional Limits Strength Lower Extremity Strength Assessment Within Functional Limits Muscle Tone Muscle Tone WNL Yes M6 PT-IP Treatment Start: 06/19/25 15:26 Freq: NEEDED Status: Active Protocol: Document 06/23/25 09:25 AB (Rec: 06/23/25 12:02 AB [id number]) Physical Therapy Treatment Education Education Provided Safety M7 PT-IP Assessment and Plan Start: 06/19/25 15:26 Freq: NEEDED Status: Active Protocol: Document 06/23/25 09:25 AB (Rec: 06/23/25 12:02 AB [id number]) PT Summary Assessment and Plan Potential Rehabilitation Fair Potential Summary Impairments Pain,ROM,Strength,Balance,Coordination,Sensation,Tone, Cognition,Bed Mobility,Transfers,Gait,Activity Tolerance Progress Towards Slow Progress due to Medical Issues,Slow Progress due Goals to Activity Tolerance Assessment Summary Pt requiring max A for bed mobility, sit <>stand and min A to mod A for transfers and ambulation using 4WW. pt will require 24/ assist and will benefit from SNF rehab. Goals Bed Mobility Goal Standby Assistance Transfer Goal Standby Assistance,Four Wheeled Walker Gait Goal Standby Assistance,Four Wheel Walker Gait Distance 100 Days to Meet Goals 10 Frequency of Treatment Frequency Of Once a Day Treatment Treatment Plan Physical Therapy Bed Mobility Training,Transfer Training,Gait Training, Treatment Plan Therapeutic Exercise,Balance Retraining,Discharge Planning,Hot or Cold Pack,Neuromuscular Re-ed, Coordination Retraining Recommendations To Nursing Amount of Assist 1 Person Assist Needed Discharge Recommendations PT Discharge SNF Rehab Recommendations Transportation Needs Private Vehicle,Wheelchair/Cabulance at Discharge - PT assist 1
--- NOTE | 2025-06-23 09:34 | P.DS_ITS ---
History of Present Illness History of Present Illness Date Patient Seen: 06/23/25 Chief complaint: Low Sodium and possible pneumonia Narrative: Chief complaint: Recurrent pneumonia with chronic cough malaise fatigue lethargy and hyponatremia 118 History of present illness 06/17: 89-year-old female with productive cough treated outpatient with Augmentin orally but still feeling short of breath and lethargy had a follow up appointment with laboratory testing on an outpatient basis side to be hyponatremic and recommended to become evaluated in the emergency department. In the emergency room following fine and pertinent findings White count 27219, sodium of 118, bilateral streaky infiltrates on lower lobes on chest x-ray pro BNP of 6000 systolic blood pressure of 200 Hospital course: 06/18: The patient reports feeling better with improved but persistent cough, and improved breathing with persistent mild shortness breath and lethargy. Sodium 119 this morning. 06/19: The patient has a left subconjunctival hemorrhage without vision changes. She thinks she is scratched her left eye. She reports persistent but improved cough and shortness of breath. Sodium 121 this morning. 06/20: The patient is feeling better. Sodium level is up to 127. She started to work with physical therapy. 06/21: Patient reports dyspnea with walking across the room with some chest pressure echocardiogram demonstrates: Ejection fraction 65-70% Dyssynchronous contraction pattern Atrial fibrillation with Diastolic dysfunction could not be extra assessed Right ventricular systolic pressure estimated to at least 71 mmHg Right atrial pressure 15 mm Valves unremarkable 06/22: Case discussed with the work environment safety inspector recommending CT angio to rule out pulmonary embolus as the cause. Hypercoagulable workup if this is positive of course. If this is negative then patient will need a referral for outpatient cardiology for a follow up? catheterization. 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 Leung Hyponatremia favor SIADH Chronic atrial fibrillation: * Continue rate control with atenolol and CVA prophylaxis with Xarelto DVT prophylaxis: * Covered with Xarelto Code status: * Full code Disposition: * [facility] * 1500 mL fluid restriction for SIADH * Follow-up with physician there * Follow up with cardiology Discharge Providers Provider Date of admission: 06/17/25 17:42 Discharge Date: 06/23/25 Primary care physician: Pasha CHRISTIANSON Provider Consults: 06/19/25 11:33 Consult to Physical Therapy Evaluate & Treat Comment: Physician Instructions: Evaluate and Treat Discharge provider: Ron Shaffer MD Exam Vital Signs (past 8 hours): - 06/23/25 02:00 06/23/25 02:30 06/23/25 03:00 Pulse Rate 63 72 62 Respiratory Rate 23 18 23 Blood Pressure Pulse Oximetry Oxygen Delivery Method 06/23/25 03:30 06/23/25 04:00 06/23/25 04:30 Pulse Rate 65 61 61 Respiratory Rate 18 26 H 22 Blood Pressure Pulse Oximetry Oxygen Delivery Method 06/23/25 05:00 06/23/25 05:30 06/23/25 05:48 Pulse Rate 61 64 75 Respiratory Rate 23 19 28 H Blood Pressure Pulse Oximetry 96 Oxygen Delivery Method 06/23/25 05:48 06/23/25 06:00 06/23/25 06:30 Pulse Rate 66 60 Respiratory Rate 27 H 22 Blood Pressure 120/57 L Pulse Oximetry Oxygen Delivery Method 06/23/25 07:00 06/23/25 07:00 06/23/25 08:00 Pulse Rate 72 Respiratory Rate 20 Blood Pressure 126/61 Pulse Oximetry 97 100 Oxygen Delivery Method Room Air Room Air 06/23/25 08:28 Pulse Rate 80 Respiratory Rate 16 Blood Pressure Pulse Oximetry 97 Oxygen Delivery Method Room Air Fraction of Inspired Oxygen 21 SaO2/FiO2 Ratio 466 Oxygen Delivery Method Room Air Oxygen Flow Rate 0 Objective Labs 06/21/25 04:30 06/23/25 07:48 Labs: Laboratory Results - last 24 hr 06/21/25 06/23/25 04:30 07:48 Sodium 121 L Potassium 4.3 Chloride 91 L Carbon Dioxide 22 BUN 39 H Creatinine 1.14 H Estimated GFR 46 L BUN/Creatinine Ratio 34.2 H Glucose 88 Serum Osmolality 256 L Calcium 8.8 PFSH Medical History Asthma Back pain Arthritis Skin cancer Leg fracture, left Edema Sleep apnea with use of continuous positive airway pressure (CPAP) Hearing impaired RLS (restless legs syndrome) TIA (transient ischemic attack) (~2017) Atrial fibrillation Hyperlipidemia Hypertension Diabetes Surgical History Hx of hemorrhoidectomy (~1968) History of surgery History of tonsillectomy and adenoidectomy (~1939) H/O: hysterectomy Hx of bilateral cataract extraction Family History Mother Diabetes mellitus Myocardial infarction Father Diabetes mellitus Social History household members: none Smoking Status: Never smoker alcohol intake: current Discharge Plan Discharge Plan Patient Disposition: SNF Discharge orders & Medications Prescriptions: New sodium chloride 1,000 mg Tablet,Soluble 1,000 mg PO TID Qty: 60 0RF Xarelto 10 mg Tablet 15 mg PO QPM Qty: 30 0RF Continued simvastatin 20 mg tablet 20 mg PO QAM albuterol sulfate 90 mcg/actuation HFA aerosol inhaler 2 puff Inhalation Q4H PRN (Reason: Wheezing) atenolol 50 mg tablet 50 mg PO QAM loratadine 10 mg tablet 1 tab PO QAM albuterol sulfate 0.63 mg/3 mL Solution For Nebulization 0.63 mg INHALATION Q4H PRN (Reason: Shortness Of Breath Or Wheezing) fluticasone propion-salmeterol [Advair Diskus] 250-50 mcg/dose Blister With Device 1 inh INHALATION BID acetaminophen 325 mg Tablet 650 mg PO Q6HR PRN (Reason: Pain, Mild (1-3)) Qty: 35 0RF furosemide 40 mg tablet 40 mg PO QAM cyclobenzaprine 10 mg tablet 10 mg PO TID PRN (Reason: muscle spasm) Qty: 20 0RF ferrous sulfate 324 mg (65 mg iron) tablet,delayed release (DR/EC) 324 mg PO QAM Rx Instructions: Take every other day lidocaine 5 % adhesive patch,medicated 1 patch TOP DAILY PRN (Reason: hip pain) Rx Instructions: leave on most painful area for up to 12 hrs docusate sodium 100 mg Capsule 100 mg PO BID PRN (Reason: Constipation) Qty: 30 0RF ondansetron 4 mg Tablet,Disintegrating 4 mg PO Q4-8H PRN (Reason: Nausea) Qty: 10 0RF oxycodone 5 mg Tablet 5 mg PO Q4-6H PRN (Reason: Pain, Moderate (4-6)) Qty: 30 0RF Discontinued lisinopril 40 mg tablet 40 mg PO QAM Xarelto 20 mg tablet 20 mg PO DAILY Follow up/Referrals: Pasha Salgado [Primary Care Provider, Family Practice] Visit Report/Discharge Packet Stand Alone Forms: Patient Portal/API Discharge Data Primary Care Provider: Pasha Salgado Quality VTE Deep Vein Thrombosis/Pulmonary Embolism Present on Admission: No
[2025-06-23] MEDS: guaiFENesin Solution 100 MG/5 ML UDC PO ×2 (11:52→23:04)
[2025-06-23] MEDS: CYCLOBENZAPRINE 10 MG TABLET PO (21:55)
[2025-06-23] MEDS: HYDROCODONE/ACET 5/325 TABLET 1 TAB PO (21:55)
[2025-06-24] VITALS (22 sets, daily range): BP systolic 94–116; BP diastolic 43–55; PULSE 61–88; RESP 16–20; TEMP 36–37; O2SAT 83–100
[2025-06-24 06:28] LABS: Alanine Aminotransferase 36 IU/L (<35); Albumin 3.2 g/dL (3.5-5.0); Albumin Globulin Ratio 1.1 (1.0-2.8); Alkaline Phosphatase 120 U/L (38-126); Blood Urea Nitrogen 39 mg/dL (7-17); Calcium 9.3 mg/dL (8.4-10.2); Carbon Dioxide 21 mmol/L (22-32); Chloride 90 mmol/L (98-107); Estimated Glomerular Filt Rate 54 mL/min (>60); Globulin 2.8 g/dL (1.7-4.1); Glucose 89 mg/dL (70-99); HEMOLYSIS < 15 (0-50); Potassium 4.7 mmol/L (3.4-5.1); Sodium 121 mmol/L (137-145); Total Protein 6.0 g/dL (6.3-8.2)
[2025-06-24 07:04] LABS: Add Manual Diff / Slide Review NO; Hemoglobin 7.0 g/dL (12.0-16.0); Lymphocytes Absolute Auto 1600 /uL (1100-4500); Mean Corpuscular HGB Conc 33.2 % (30-36); Mean Corpuscular Hemoglobin 26.8 PG (26-34); Mean Corpuscular Volume 80.8 fL (80-100); Platelet Count 305 X10^3/uL (150-400)
[2025-06-24 07:07] LABS: Hematocrit 20.9 % (36-46)
[2025-06-24 07:11] LABS: INR 2.8 (0.9-1.3); Prothrombin Time 30.8 SECONDS (9.4-12.5)
[2025-06-24 07:14] LABS: PTT Partial Thromboplastin Tim 41 SECONDS (25.1-36.5)
--- NOTE | 2025-06-24 07:22 | P.DS_ITS ---
History of Present Illness History of Present Illness Date Patient Seen: 06/24/25 Chief complaint: Low Sodium and possible pneumonia Narrative: Chief complaint: Recurrent pneumonia with chronic cough malaise fatigue lethargy and hyponatremia 118 History of present illness 06/17: 89-year-old female with productive cough treated outpatient with Augmentin orally but still feeling short of breath and lethargy had a follow up appointment with laboratory testing on an outpatient basis side to be hyponatremic and recommended to become evaluated in the emergency department. In the emergency room following fine and pertinent findings White count [id number], sodium of 118, bilateral streaky infiltrates on lower lobes on chest x-ray pro BNP of 6000 systolic blood pressure of 200 Hospital course: 06/18: The patient reports feeling better with improved but persistent cough, and improved breathing with persistent mild shortness breath and lethargy. Sodium 119 this morning. 06/19: The patient has a left subconjunctival hemorrhage without vision changes. She thinks she is scratched her left eye. She reports persistent but improved cough and shortness of breath. Sodium 121 this morning. 06/20: The patient is feeling better. Sodium level is up to 127. She started to work with physical therapy. 06/21: Patient reports dyspnea with walking across the room with some chest pressure echocardiogram demonstrates: Ejection fraction 65-70% Dyssynchronous contraction pattern Atrial fibrillation with Diastolic dysfunction could not be extra assessed Right ventricular systolic pressure estimated to at least 71 mmHg Right atrial pressure 15 mm Valves unremarkable 06/22: Case discussed with the delinquency prevention social worker recommending CT angio to rule out pulmonary embolus as the cause. Hypercoagulable workup if this is positive of course. If this is negative then patient will need a referral for outpatient cardiology for a follow up? catheterization. 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 06/24: Sodium stable at 121 I believe this is the patient's new baseline Review of systems: No chest pain palpitations squeezing sensation No nausea vomiting diarrhea constipation No urinary symptoms No paresthesia or paresis No unusual weight loss or weight gain No rigors or night sweats or chills Physical exam: Very pleasant 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 * If becomes symptomatic or worsens consider tolvaptan (very high cost) * Trial of Jardiance (osmotic diuresis may be helpful) Community-acquired pneumonia resolved * Pneumonia resolved Suspected acute on chronic cor pulmonale with left-sided diastolic congestive heart failure * Asymptomatic at this time * Follow up with Dr. Leung Chronic atrial fibrillation: * Continue rate control with atenolol and CVA prophylaxis with Xarelto DVT prophylaxis: * Covered with Xarelto Code status: * Full code Disposition: * Discharge to assisted * 1500 mL fluid restriction for SIADH * Follow-up with physician there * Follow up with cardiology Discharge Providers Provider Date of admission: 06/17/25 17:42 Discharge Date: 06/24/25 Primary care physician: Pasha CHRISTIANSON Provider Consults: 06/19/25 11:33 Consult to Physical Therapy Evaluate & Treat Comment: Physician Instructions: Evaluate and Treat Discharge provider: Ron Shaffer MD Exam Vital Signs (past 8 hours): - 06/24/25 04:00 Pulse Rate 63 Respiratory Rate 18 Blood Pressure 111/50 L Pulse Oximetry 97 Oxygen Flow Rate 0 Fraction of Inspired Oxygen 21 SaO2/FiO2 Ratio 466 Oxygen Delivery Method Room Air Oxygen Flow Rate 0 Objective Labs 06/24/25 06:30 06/24/25 05:55 Labs: Laboratory Results - last 24 hr 06/20/25 06/23/25 06/24/25 19:00 07:48 05:55 WBC RBC Hgb Hct MCV MCH MCHC RDW Plt Count Neut % (Auto) Lymph % (Auto) [place] % (Auto) Eos % (Auto) Baso % (Auto) Neut # (Auto) Lymph # (Auto) [place] # (Auto) Eos # (Auto) Baso # (Auto) PT INR APTT Sodium 121 L 121 L Potassium 4.3 4.7 Chloride 91 L 90 L Carbon Dioxide 22 21 L BUN 39 H 39 H Creatinine 1.14 H 1.00 Estimated GFR 46 L 54 L BUN/Creatinine Ratio 34.2 H 39.0 H Glucose 88 89 Calcium 8.8 9.3 Total Bilirubin 0.9 AST 49 H ALT 36 H Alkaline Phosphatase 120 D Total Protein 6.0 L Albumin 3.2 L Globulin 2.8 Albumin/Globulin Ratio 1.1 Urine Osmolality 249 06/24/25 06:30 WBC 10.4 RBC 2.59 L Hgb 7.0 L Hct 20.9 L* MCV 80.8 MCH 26.8 MCHC 33.2 RDW 15.1 H Plt Count 305 Neut % (Auto) 70.8 Lymph % (Auto) 15.1 L [place] % (Auto) 9.2 Eos % (Auto) 4.4 H Baso % (Auto) 0.5 Neut # (Auto) 7400 H Lymph # (Auto) 1600 [place] # (Auto) 1000 H Eos # (Auto) 500 H Baso # (Auto) 100 PT 30.8 H D INR 2.8 H APTT 41 H Sodium Potassium Chloride Carbon Dioxide BUN Creatinine Estimated GFR BUN/Creatinine Ratio Glucose Calcium Total Bilirubin AST ALT Alkaline Phosphatase Total Protein Albumin Globulin Albumin/Globulin Ratio Urine Osmolality [facility] Medical History Asthma Back pain Arthritis Skin cancer Leg fracture, left Edema Sleep apnea with use of continuous positive airway pressure (CPAP) Hearing impaired RLS (restless legs syndrome) TIA (transient ischemic attack) (~2018) Atrial fibrillation Hyperlipidemia Hypertension Diabetes Surgical History Hx of hemorrhoidectomy (~1969) History of surgery History of tonsillectomy and adenoidectomy (~1939) H/O: hysterectomy Hx of bilateral cataract extraction Family History Mother Diabetes mellitus Myocardial infarction Father Diabetes mellitus Social History household members: none Smoking Status: Never smoker alcohol intake: current Discharge Plan Discharge Plan Patient Disposition: SNF Discharge orders & Medications Prescriptions: New sodium chloride 1,000 mg Tablet,Soluble 1,000 mg PO TID Qty: 60 0RF Xarelto 10 mg Tablet 15 mg PO QPM Qty: 30 0RF Continued simvastatin 20 mg tablet 20 mg PO QAM albuterol sulfate 90 mcg/actuation HFA aerosol inhaler 2 puff Inhalation Q4H PRN (Reason: Wheezing) atenolol 50 mg tablet 50 mg PO QAM loratadine 10 mg tablet 1 tab PO QAM albuterol sulfate 0.63 mg/3 mL Solution For Nebulization 0.63 mg INHALATION Q4H PRN (Reason: Shortness Of Breath Or Wheezing) fluticasone propion-salmeterol [Advair Diskus] 250-50 mcg/dose Blister With Device 1 inh INHALATION BID acetaminophen 325 mg Tablet 650 mg PO Q6HR PRN (Reason: Pain, Mild (1-3)) Qty: 35 0RF furosemide 40 mg tablet 40 mg PO QAM cyclobenzaprine 10 mg tablet 10 mg PO TID PRN (Reason: muscle spasm) Qty: 20 0RF ferrous sulfate 324 mg (65 mg iron) tablet,delayed release (DR/EC) 324 mg PO QAM Rx Instructions: Take every other day lidocaine 5 % adhesive patch,medicated 1 patch TOP DAILY PRN (Reason: hip pain) Rx Instructions: leave on most painful area for up to 12 hrs docusate sodium 100 mg Capsule 100 mg PO BID PRN (Reason: Constipation) Qty: 30 0RF ondansetron 4 mg Tablet,Disintegrating 4 mg PO Q4-8H PRN (Reason: Nausea) Qty: 10 0RF oxycodone 5 mg Tablet 5 mg PO Q4-6H PRN (Reason: Pain, Moderate (4-6)) Qty: 30 0RF Discontinued lisinopril 40 mg tablet 40 mg PO QAM Xarelto 20 mg tablet 20 mg PO DAILY Follow up/Referrals: ProviderPasha [Primary Care Provider, Family Practice] Visit Report/Discharge Packet Stand Alone Forms: Patient Portal/API Discharge Data Primary Care Provider: Pasha Salgado Quality VTE Deep Vein Thrombosis/Pulmonary Embolism Present on Admission: No
[2025-06-24] MEDS: ALBUTEROL 2.5 MG/3 ML NEB (ADULT) INH ×2 (08:14→11:30)
[2025-06-24] MEDS: BUDESONIDE 0.5 MG/2 ML NEB INH (08:14)
[2025-06-24] MEDS: SODIUM CHLORIDE 1,000 MG TABLET 1000 MG PO ×2 (08:38→14:52)
[2025-06-24] MEDS: AMLODIPINE 5 MG TABLET PO (08:38)
[2025-06-24] MEDS: FERROUS SULFATE 325 MG TABLET PO (08:38)
[2025-06-24] MEDS: ATORVASTATIN 20 MG TABLET 10 MG PO (08:38)
--- NOTE | 2025-06-24 10:07 | PT-IP ANOTE ---
Pt discussed in rounds. Her Hgb dropped and she is getting blood and then plan to d/c to SNF this p.m.
--- NOTE | 2025-06-24 11:21 | PC.NURSE ---
1100 Upon assessing pt during transfusion, pt noted that IV felt funny and heavy; upon inspection, PIV was seen to have infiltrated and bruised (despite earlier 2x NS 10mL flush). Informed MD Shaffer; JORDI Haynes contacted to place new [facility] PIV.
--- NOTE | 2025-06-24 12:45 | CM.DPNOTE ---
DC Note Discharge to [facility], transport scheduled for pickle maker at 3pm. Emailed Lupe at [facility] Summary and signed med list. Patient remains aware and agreeable. Bedside RN updated throughout. Plan: Discharge to [facility] via van. SALLY
[2025-06-24] MEDS: SODIUM CHLORIDE 0.9% FLUSH 10 ML IV (13:47)
[2025-06-24 14:21] LABS: Hemoglobin 8.7 g/dL (12.0-16.0)
--- NOTE | 2025-06-24 15:23 | PC.NURSE ---
Pt tolerated 1 unit PRBCs very well. Hgb improved to 8.7, informed MD, approved discharge. 2xPIVs removed by PCT Osman, pt tolerated well. All belongings with pt family, glasses and necklace with patient. Called report to Viry at [facility] ([phone]). Pt escorted to facility van by facility employee via .
== END 2025-06-24 15:10 | DRG 643 ==
LOC: ED 17:42 → ICU 06-18 06:25 → AC 06-18 12:23 → ICU 06-18 12:23
PROVIDERS: Internal Medicine; Admitting Provider Internal Medicine; Emergency Provider Emergency Medicine; Referring Provider Emergency Medicine; Visit Provider Internal Medicine
DX: E22.2 Syndrome of inappropriate secretion of antidiuretic hormone (principal); J18.9 Pneumonia, unspecified organism; I48.20 Chronic atrial fibrillation, unspecified; I50.30 Unspecified diastolic (congestive) heart failure; E86.0 Dehydration; H11.32 Conjunctival hemorrhage, left eye; G47.30 Sleep apnea, unspecified; I27.81 Cor pulmonale (chronic); E78.5 Hyperlipidemia, unspecified; J45.909 Unspecified asthma, uncomplicated; I11.0 Hypertensive heart disease with heart failure; Z79.01 Long term (current) use of anticoagulants
CPT/HCPCS: 36415; 36430; 71045; 71275; 80048; 80053; 82550; 83605; 83690; 83735; 83880; 83930; 83935; 84145; 84484; 85018; 85025; 85610; 85730; 86850; 86900; 86901; 87040; 93005; 93306; 94640; 94760; 94762; 96361; 96365; 96366; 97162; 97530; 99284; P9016; J0461; J0696; J1938; J7613; Q9967